=== PATIENT | male | born 1970 | race African-American/Black ===

== ENCOUNTER → 2017-01-21 00:08 | Emergency (ER) | payer OTHER ==
[~2017-01-21 00:08] MED LIST: Al Hydrox/Mg Hydrox/Simet LIQ* 30 ML UDC PO ONE; Lidocaine 2% VISCOUS* 15 ML UDC PO ONE
[2017-01-21 00:17] VITALS: BP 208/138
[2017-01-21 02:19] LABS: Hematocrit 47 % (42-52); Hemoglobin 16.3 g/dl (14.0-18.0); Mean Corpuscular HGB Conc 35 g/dl (31-36); Mean Corpuscular Hemoglobin 30 pg (27-31); Mean Corpuscular Volume 87 fL (80-94); Mean Platelet Volume 8 um3 (7.4-10.4); Red Blood Count 5.39 10^6/ul (4.0-5.4); Red Cell Distribution Width 13 % (10.5-15); White Blood Count 4.4 10^3/ul (3.5-10.8)
[2017-01-21 02:33] LABS: BUN/Creatinine Ratio 9.7 (8-20); Blood Urea Nitrogen 12 mg/dL (6-24); CO2 Carbon Dioxide 26 mmol/L (22-32); Chloride 101 mmol/L (101-111); EGFR Non-African American 62.2 (>60); Glucose 119 mg/dL (70-100); Sodium 137 mmol/L (133-145)
[2017-01-21 02:34] LABS: ALT 31 U/L (7-52); Acetaminophen < 15 mcg/mL; Albumin 3.7 g/dL (3.2-5.2); Alkaline Phosphatase 63 U/L (34-104); Globulin 4.5 g/dL (2-4); Salicylate < 2.50 mg/dL (<30); Total Protein 8.2 g/dL (6.4-8.9)
[2017-01-21 02:37] LABS: Alcohol 415 mg/dL (<10); Troponin I 0.04 ng/mL (<0.04)
[2017-01-21 02:48] LABS: TSH (Thyroid Stimulating Horm) 2.72 mcIU/mL (0.34-5.60)
[2017-01-21 02:49] LABS: AST 51 U/L (13-39); Anion Gap 10 mmol/L (2-11)
--- NOTE | 2017-01-21 06:54 | ED ---
Alf Sanchez Nikita, scribed for Jim Gallegos on 01/21/17 at 0049 . Substance Abuse/Use - HPI Summary HPI Summary: This patient is a 46 year old M BIB police to ED with a chief complaint of ETOH abuse since a few days ago. Pt states his last drink was at 2200 yesterday. Pt has been dealing with PD multiple times today. The patient rates the pain 0/10 in severity. Symptoms aggravated by nothing. Symptoms alleviated by nothing. Patient denies SI, depression, and CP. - History Of Current Complaint Chief Complaint: EDSubstanceAbuse Stated Complaint: 2208 Time Seen by Provider: 01/21/17 00:31 Hx Obtained From: Patient Onset/Duration of Drug/ETOH Abuse: Days Ingestion History: Type/Name Of Drug - alcohol Overdose Characteristics: Oral Timing Of Abuse: Daily Character: Lethargic Aggravating Factor(s): Nothing Alleviating Factor(s): Nothing Associated Signs And Symptoms: Other: - Patient denies SI, depression, and CP. - Allergies/Home Medications Allergies/Adverse Reactions: Allergies Allergy/AdvReac Type Severity Reaction Status Date / Time No Known Allergies Allergy Verified 01/21/17 00:13 PMH/Surg Hx/FS Hx/Imm Hx Endocrine/Hematology History: Reports: Other Endocrine/Hematological Disorders - hypoglycemia Cardiovascular History: Reports: Hx Hypertension Infectious Disease History: No Infectious Disease History: Denies: Traveled Outside the [place] in Last 30 Days - Family History Known Family History: Negative: Cardiac Disease - Social History Alcohol Use: Daily Substance Use Type: Reports: None Smoking Status (MU): Never Smoked Tobacco Review of Systems Positive: Other - alcohol abuse Negative: Chest Pain Positive: Other - denies SI. Negative: Depressed All Other Systems Reviewed And Are Negative: Yes Physical Exam Triage Information Reviewed: Yes Vital Signs On Initial Exam: Initial Vitals Temp Pulse Resp BP Pulse Ox 97.5 F 114 16 208/138 96 01/21/17 00:13 01/21/17 00:13 01/21/17 00:13 01/21/17 00:13 01/21/17 00:13 Vital Signs Reviewed: Yes Appearance: Positive: Well-Appearing, No Pain Distress Skin: Positive: Warm, Skin Color Reflects Adequate Perfusion, Dry Head/Face: Positive: Other - abrasion over the nose Eyes: Positive: EOMI, KALPESH ENT: Positive: Normal ENT inspection Neck: Positive: Supple, Nontender Respiratory/Lung Sounds: Positive: Clear to Auscultation, Breath Sounds Present Cardiovascular: Positive: RRR, Pulses are Symmetrical in both Upper and Lower Extremities Abdomen Description: Positive: Nontender, Soft Bowel Sounds: Positive: Present Musculoskeletal: Positive: Normal, Strength/ROM Intact Neurological: Positive: Other - alert, lethargic, drunk - [place] Coma Scale Coma Scale Total: 15 Diagnostics - Vital Signs Vital Signs Temp Pulse Resp BP Pulse Ox 01/21/17 00:13 97.5 F 114 16 208/138 96 - Laboratory Lab Results: Lab Results 01/21/17 01/21/17 Range/Units 02:07 02:07 WBC 4.4 (3.5-10.8) 10^3/ul RBC 5.39 (4.0-5.4) 10^6/ul Hgb 16.3 (14.0-18.0) g/dl Hct 47 (42-52) % MCV 87 (80-94) fL MCH 30 (27-31) pg MCHC 35 (31-36) g/dl RDW 13 (10.5-15) % Plt Count 174 (150-450) 10^3/ul MPV 8 (7.4-10.4) um3 Neut % (Auto) 62.6 (38-83) % Lymph % (Auto) 30.1 (25-47) % [place] % (Auto) 6.4 (1-9) % Eos % (Auto) 0.3 (0-6) % Baso % (Auto) 0.6 (0-2) % Absolute Neuts (auto) 2.7 (1.5-7.7) 10^3/ul Absolute Lymphs (auto) 1.3 (1.0-4.8) 10^3/ul Absolute Monos (auto) 0.3 (0-0.8) 10^3/ul Absolute Eos (auto) 0 (0-0.6) 10^3/ul Absolute Basos (auto) 0 (0-0.2) 10^3/ul Absolute Nucleated RBC 0.02 10^3/ul Nucleated RBC % 0.4 Sodium 137 (133-145) mmol/L Potassium 4.0 (3.5-5.0) mmol/L Chloride 101 (101-111) mmol/L Carbon Dioxide 26 (22-32) mmol/L Anion Gap 10 (2-11) mmol/L BUN 12 (6-24) mg/dL Creatinine 1.24 H (0.67-1.17) mg/dL Est GFR ( Amer) 80.0 (>60) Est GFR (Non-Af Amer) 62.2 (>60) BUN/Creatinine Ratio 9.7 (8-20) Glucose 119 H (70-100) mg/dL Calcium 9.0 (8.6-10.3) mg/dL Total Bilirubin 0.30 (0.2-1.0) mg/dL AST 51 H (13-39) U/L ALT 31 (7-52) U/L Alkaline Phosphatase 63 (34-104) U/L Troponin I 0.04 H* (<0.04) ng/mL Total Protein 8.2 (6.4-8.9) g/dL Albumin 3.7 (3.2-5.2) g/dL Globulin 4.5 H (2-4) g/dL Albumin/Globulin Ratio 0.8 L (1-3) TSH 2.72 (0.34-5.60) mcIU/mL Salicylates < 2.50 (<30) mg/dL Acetaminophen < 15 mcg/mL Serum Alcohol 415 H* (<10) mg/dL Result Diagrams: 01/21/17 02:07 01/21/17 02:07 Lab Statement: Any lab studies that have been ordered have been reviewed, and results considered in the medical decision making process. - EKG 0554 Cardiac Rate: NL EKG Rhythm: Sinus Rhythm - 88 bpm EKG Interpretation: no acute changes Course/Dx - Course Assessment/Plan: This patient is a 46 year old M BIB police to ED with a chief complaint of ETOH abuse since a few days ago. Patient denies SI, depression, and CP. Bloodwork/UA obtained. EKG reveals NSR at 88 bpm and no acute changes. Pt will be signed out to Dr. Llanos. - Diagnoses Differential Diagnosis/HQI/PQRI: Positive: Alcohol Abuse, Anxiety, Other - alcohol intoxication Provider Diagnoses: Alcohol intoxication, Troponin level elevated Discharge - Discharge Plan Condition: Stable Disposition: OTHER Discharge Disposition Comment: Pt will be signed out to Dr. Llanos, pending disposition. The documentation as recorded by the scribe, Alf,Sourav accurately reflects the service I personally performed and the decisions made by , Jim Gallegos.
--- NOTE | 2017-01-21 07:57 | ED ---
Angelo Sanchez Thomas, scribed for Yovanny Llanos MD on 01/21/17 at 0731 . Progress - Progress Note Progress Note: The patient is a sign out from Dr. Gallegos at shift change with ETOH intoxication , pending disposition. The patient has decided to leave against medical advice. I extensively discussed with the patient the benefits and risk of leaving AMA. I also discussed the alternatives to leaving AMA, however, the patient still insist to leave the hospital AMA.. The primary nurse and the charge nurse also strongly recommended that the patient should not leave AMA. Patient understands the risk of leaving AMA, which includes but is not restricted to . Patient is Alert and oriented times three and patient verbalizes understanding. Patient has full capacity and is cognitively intact. Patient signed the AMA form. Patient was also advised to return to ED if he changes his mind or if the symptoms worsen or other symptoms appear. Patient understands and agrees. Course/Dx - Diagnoses Provider Diagnoses: Left against medical advice The documentation as recorded by the Angelo cole Thomas accurately reflects the service I personally performed and the decisions made by me, Yovanny Llanos MD.
== END | disposition left against medical advice (07) ==
LOC: ED 00:08
DX: F10.129 Alcohol abuse with intoxication, unspecified (principal)
CPT/HCPCS: 36415; 80053; 80320; 80329; 84443; 84484; 85025; 93005; 99283; A9270-GY; G0480

== ENCOUNTER 2017-01-21 19:37 | Emergency (ER) | payer OTHER ==
[2017-01-21 20:26] LABS: Hematocrit 42 % (42-52); Hemoglobin 14.9 g/dl (14.0-18.0); Mean Corpuscular HGB Conc 35 g/dl (31-36); Mean Corpuscular Hemoglobin 30 pg (27-31); Mean Corpuscular Volume 86 fL (80-94); Mean Platelet Volume 8 um3 (7.4-10.4); Red Blood Count 4.96 10^6/ul (4.0-5.4); Red Cell Distribution Width 13 % (10.5-15); White Blood Count 3.6 10^3/ul (3.5-10.8)
--- NOTE | 2017-01-21 20:34 | ED ---
Psychiatric Complaint - HPI Summary HPI Summary: Patient presents to the ED with CC of feeling depressed after drinking alcohol recently. He states he has been drinking more lately and most recently 3 nights ago consistently until now. He states he is intoxicated right now. Intoxicated last night as well as he was seen here and eventually discharged. He returns today with intoxication and wants to seek help. He denies SI/HI, however he would like to talk to someone about "hurting those around me." Denies physical pain. - History Of Current Complaint Chief Complaint: EDMentalHealth Time Seen by Provider: 01/21/17 19:39 Hx Obtained From: Patient Onset/Duration: Sudden Onset Timing: Constant Severity Initially: Moderate Severity Currently: Moderate Character: Depressed Aggravating Factor(s): Alcohol Use Alleviating Factor(s): Nothing Associated Signs And Symptoms: Positive: Negative Ingestion History: Amount Ingested - several liquor/beer drinks - Risk Factor(s) Completed Suicide Risk Factors: Male - Allergies/Home Medications Allergies/Adverse Reactions: Allergies Allergy/AdvReac Type Severity Reaction Status Date / Time No Known Allergies Allergy Verified 01/21/17 00:13 PMH/Surg Hx/FS Hx/Imm Hx Previously Healthy: Yes Endocrine/Hematology History: Denies: Hx Diabetes, Hx Thyroid Disease Cardiovascular History: Denies: Hx Hypertension, Hx Pacemaker/ICD Respiratory History: Reports: Hx Asthma Denies: Hx Chronic Obstructive Pulmonary Disease (COPD) GI History: Denies: Hx Ulcer Sensory History: Denies: Hx Contacts or Glasses, Hx Hearing Aid Opthamlomology History: Denies: Hx Contacts or Glasses Psychiatric History: Reports: Hx Panic Disorder, Hx of Violent Episodes Against Others - Immunization History Hx Pertussis Vaccination: No Immunizations Up to Date: Unable to Obtain/Confirm Infectious Disease History: No Infectious Disease History: Denies: Hx Hepatitis, Hx Human Immunodeficiency Virus (HIV), Traveled Outside the [place] in Last 30 Days - Family History Known Family History: Positive: Unknown - Usp and "has not seen parents in a long time" Family History: The patient does not know his family Hx. - Social History Occupation: Employed Full-time Lives: With Family Alcohol Use: Daily Alcohol Amount: beer, 5-6x 24oz beers daily Hx Substance Use: No Substance Use Type: Reports: None Substance Use Comment - Amount & Last Used: 2 weeks ago Hx Tobacco Use: No Smoking Status (MU): Never Smoked Tobacco Review of Systems Constitutional: Negative Negative: Fever, Fatigue Eyes: Negative Cardiovascular: Negative Respiratory: Negative Genitourinary: Negative Positive: no symptoms reported, see HPI Musculoskeletal: Negative Neurological: Negative Positive: Depressed All Other Systems Reviewed And Are Negative: Yes Physical Exam Triage Information Reviewed: Yes Vital Signs On Initial Exam: Initial Vitals Temp Pulse Resp BP Pulse Ox 98.8 F 100 14 160/99 95 01/21/17 20:21 01/21/17 20:21 01/21/17 20:21 01/21/17 20:21 01/21/17 20:21 Vital Signs Reviewed: Yes Appearance: Positive: Well-Nourished, Obese Skin: Positive: Warm, Skin Color Reflects Adequate Perfusion Head/Face: Positive: Normal Head/Face Inspection Eyes: Positive: EOMI, KALPESH, Conjunctiva Clear Neck: Positive: Supple, Nontender, No Lymphadenopathy Respiratory/Lung Sounds: Positive: Clear to Auscultation, Breath Sounds Present Cardiovascular: Positive: RRR, Pulses are Symmetrical in both Upper and Lower Extremities Musculoskeletal: Positive: Strength/ROM Intact Neurological: Positive: Speech Normal Psychiatric: Positive: Normal, Affect/Mood Appropriate AVPU Assessment: Alert Diagnostics - Vital Signs Vital Signs Temp Pulse Resp BP Pulse Ox 01/21/17 20:21 98.8 F 100 14 160/99 95 - Laboratory Lab Results: Lab Results 01/21/17 Range/Units 20:15 WBC 3.6 (3.5-10.8) 10^3/ul RBC 4.96 (4.0-5.4) 10^6/ul Hgb 14.9 (14.0-18.0) g/dl Hct 42 (42-52) % MCV 86 (80-94) fL MCH 30 (27-31) pg MCHC 35 (31-36) g/dl RDW 13 (10.5-15) % Plt Count 138 L (150-450) 10^3/ul MPV 8 (7.4-10.4) um3 Neut % (Auto) 58.8 (38-83) % Lymph % (Auto) 33.8 (25-47) % [place] % (Auto) 6.8 (1-9) % Eos % (Auto) 0 (0-6) % Baso % (Auto) 0.6 (0-2) % Absolute Neuts (auto) 2.1 (1.5-7.7) 10^3/ul Absolute Lymphs (auto) 1.2 (1.0-4.8) 10^3/ul Absolute Monos (auto) 0.2 (0-0.8) 10^3/ul Absolute Eos (auto) 0 (0-0.6) 10^3/ul Absolute Basos (auto) 0 (0-0.2) 10^3/ul Absolute Nucleated RBC 0.01 10^3/ul Nucleated RBC % 0.4 Result Diagrams: 01/21/17 20:15 01/21/17 20:15 Lab Statement: Any lab studies that have been ordered have been reviewed, and results considered in the medical decision making process. Course/Dx - Course Course Of Treatment: Patient has serum alcohol at 399. Sober 15 hours from now. He will await sobriety. He is agitated and would like to talk to someone immediately, however d/t alochol level, discussed he will need to wait. He is given 2mg ativan PO. - Differential Dx/Clinical Impression Provider Diagnosis: Alcohol intoxication Discharge - Discharge Plan Condition: Stable Disposition: OTHER Discharge Disposition Comment: signed out to dr. buchanan at 11pm Referrals: Keely Kwan MD [Primary Care Provider] -
[2017-01-21 20:40] LABS: ALT 34 U/L (7-52); Albumin 3.6 g/dL (3.2-5.2); Alkaline Phosphatase 52 U/L (34-104); BUN/Creatinine Ratio 9.9 (8-20); Blood Urea Nitrogen 11 mg/dL (6-24); CO2 Carbon Dioxide 25 mmol/L (22-32); Calcium 8.3 mg/dL (8.6-10.3); Chloride 101 mmol/L (101-111); EGFR African American 90.9 (>60); EGFR Non-African American 70.7 (>60); Glucose 106 mg/dL (70-100); Sodium 136 mmol/L (133-145); Total Protein 7.6 g/dL (6.4-8.9)
[2017-01-21 21:02] LABS: Anion Gap 10 mmol/L (2-11)
[2017-01-21 21:03] LABS: Acetaminophen < 15 mcg/mL; Alcohol 399 mg/dL (<10); Salicylate < 2.50 mg/dL (<30)
[2017-01-21 21:25] LABS: Urine Bacteria 1+ (Absent); Urine Bilirubin Negative (Negative); Urine Glucose Negative (Negative); Urine Nitrite Negative (Negative)
[2017-01-21 22:06] LABS: Benzodiazepine Urine Screen None Detected (None Detect)
[2017-01-21] MEDS ORDERED: LORazepam TAB(*) 1 MG PO ONE (22:16)
[2017-01-22] MEDS ORDERED: Thiamine TAB* 100 MG TAB PO ONE (07:40)
[2017-01-22] MEDS ORDERED: Folic Acid TAB* 1 MG PO ONE (07:40)
[2017-01-22] MEDS ORDERED: LORazepam TAB(*) 1 MG PO ONE (07:40)
[2017-01-22] MEDS ORDERED: Labetalol IV* 5 MG/ML 20 ML VIAL IV PUSH ONE (10:01)
[2017-01-22 10:38] VITALS: BP 170/100
== END 2017-01-22 10:38 | disposition home or self-care (01) ==
LOC: MERGE 19:37 → ED 19:37
DX: F10.129 Alcohol abuse with intoxication, unspecified (principal); F32.9 Major depressive disorder, single episode, unspecified
CPT/HCPCS: 36415; 80053; 80307; 80320; 80329; 81003; 81015; 84443; 85025; 87086; 96374; 99284; A9270-GY; G0480

== ENCOUNTER 2017-02-01 17:09 | Emergency (ER) | payer OTHER ==
[2017-02-01] MEDS ORDERED: Thiamine IV* 100 MG/ML 2 ML VIAL IM ONE (20:03)
[2017-02-01 20:25] LABS: ABS Basophils 0 10^3/ul (0-0.2); ABS Eosinophils 0 10^3/ul (0-0.6); ABS Monocytes 0.4 10^3/ul (0-0.8); ABS Neutrophils 1.6 10^3/ul (1.5-7.7); ABS Nucleated RBC 0 10^3/ul; Eosinophil % 1.1 % (0-6); Hematocrit 40 % (42-52); Hemoglobin 13.8 g/dl (14.0-18.0); Lymphocyte % 34.2 % (25-47); Mean Corpuscular HGB Conc 35 g/dl (31-36); Mean Corpuscular Hemoglobin 30 pg (27-31); Mean Corpuscular Volume 87 fL (80-94); Mean Platelet Volume 8 um3 (7.4-10.4); Nucleated Red Blood Cells % 0.1; Platelet Count 148 10^3/ul (150-450); Red Blood Count 4.55 10^6/ul (4.0-5.4); Red Cell Distribution Width 13 % (10.5-15); White Blood Count 3.1 10^3/ul (3.5-10.8)
[2017-02-02 00:35] VITALS: BP 102/89
[2017-02-02 04:19] LABS: Urine Appearance Turbid; Urine Blood 2+ (Negative); Urine Color Amber; Urine Ketones Negative (Negative); Urine Protein 3+(>=500 mg/dL) (Negative); Urine Specific Gravity 1.019 (1.010-1.030); Urine Urobilinogen Negative (Negative)
--- NOTE | 2017-02-28 21:49 | ED ---
Sammy Sanchez Stephanie, scribed for Fermin Laboy MD on 02/01/17 at 2021 . Substance Abuse/Use - HPI Summary HPI Summary: Pt is a 46 y/o M BIB police positive for ETOH at 18:02. He reports that he was intoxicated when troopers removed him from his bed and brought him to the ED. He reports that he is unaware of why he is a patient in the ED. Symptoms include SOB. Pt denies falling. He reports consuming 3 to 4 25 oz of ETOH daily. - History Of Current Complaint Chief Complaint: EDGeneral Stated Complaint: 2208 Hx Obtained From: Patient Onset/Duration of Drug/ETOH Abuse: Hours Ingestion History: Type/Name Of Drug - ETOH Timing Of Abuse: Daily Aggravating Factor(s): Nothing Alleviating Factor(s): Nothing Associated Signs And Symptoms: Confused, Other: - SOB - Allergies/Home Medications Allergies/Adverse Reactions: Allergies Allergy/AdvReac Type Severity Reaction Status Date / Time No Known Allergies Allergy Verified 01/21/17 00:13 PMH/Surg Hx/FS Hx/Imm Hx Previously Healthy: No Endocrine/Hematology History: Reports: Other Endocrine/Hematological Disorders - hypoglycemia Denies: Hx Diabetes, Hx Thyroid Disease Cardiovascular History: Reports: Hx Congestive Heart Failure Denies: Hx Hypertension, Hx Pacemaker/ICD Respiratory History: Reports: Hx Asthma Denies: Hx Chronic Obstructive Pulmonary Disease (COPD) GI History: Denies: Hx Ulcer Sensory History: Denies: Hx Contacts or Glasses, Hx Hearing Aid Opthamlomology History: Denies: Hx Contacts or Glasses, Hx Legally Blind EENT History: Denies: Hx Deafness Psychiatric History: Reports: Hx Panic Disorder, Hx of Violent Episodes Against Others Infectious Disease History: No Infectious Disease History: Denies: Hx Hepatitis, Hx Human Immunodeficiency Virus (HIV), Traveled Outside the [place] in Last 30 Days - Family History Known Family History: Positive: Unknown - Mcfp and "has not seen parents in a long time" Negative: Cardiac Disease Family History: The patient does not know his family Hx. - Social History Alcohol Use: Daily Alcohol Amount: beer, 5-6x 24oz beers daily Substance Use Type: Reports: None Substance Use Comment - Amount & Last Used: 2 weeks ago Smoking Status (MU): Never Smoked Tobacco Review of Systems Negative: Fever Positive: Shortness Of Breath All Other Systems Reviewed And Are Negative: Yes Physical Exam - Summary Physical Exam Summary: Appearance: Well-appearing, Well-nourished Skin: Warm, Dry, No rash, Has multiple scars on face Eyes: Normal, PERRL, EOMI, sclera anicteric ENT: Normal Neck: Supple, nontender Respiratory: Clear to auscultation Cardiovascular: S1, S2, no murmur, no rub, no gallop Abdomen: Soft, nontender, no organomegaly Bowel sounds: Present Musculoskeletal: Normal, Strength/ROM Intact, no edema, pulses symmetrical Neurological: Normal, A&Ox3, cranial nerves II-XII WNL, follows commands, gait not tested, sensation intact to pin and light touch Psychiatric: affect normal, behavior appropriate, dressed appropriately, judgment intact Extremity: Has abrasions on soles of feet Triage Information Reviewed: Yes Vital Signs On Initial Exam: Initial Vitals Temp Pulse Resp BP Pulse Ox 97.1 F 94 18 188/113 97 02/01/17 18:02 02/01/17 18:02 02/01/17 18:02 02/01/17 18:02 02/01/17 18:02 Vital Signs Reviewed: Yes Diagnostics - Vital Signs Vital Signs Temp Pulse Resp BP Pulse Ox 02/01/17 18:02 97.1 F 94 18 188/113 97 - Laboratory Result Diagrams: 02/01/17 20:10 02/01/17 22:15 Lab Statement: Any lab studies that have been ordered have been reviewed, and results considered in the medical decision making process. Course/Dx - Course Course Of Treatment: Pt is a 46 y/o M BIB police positive for ETOH at 18:02. He reports that he was intoxicated when troopers removed him from his bed and brought him to the ED. He reports consuming 3 to 4 25 oz of ETOH daily. Electrolytes checkedand are in normal limits. Pt is alert enough to return home by taxi. Physician has reviewed medications and allergies. - Diagnoses Provider Diagnoses: Alcohol intoxication, Chronic alcohol abuse Discharge - Discharge Plan Condition: Fair Disposition: HOME Patient Education Materials: Abuse of Alcohol (ED) Referrals: Keely Kwan MD [Primary Care Provider] - The documentation as recorded by the Sammy cole Stephanie accurately reflects the service I personally performed and the decisions made by me, Fermin Laboy MD.
== END 2017-02-02 00:32 | disposition home or self-care (01) ==
LOC: ED 17:09
DX: F10.129 Alcohol abuse with intoxication, unspecified (principal); F10.20 Alcohol dependence, uncomplicated; R06.02 Shortness of breath
CPT/HCPCS: 36415; 80053; 80307; 80320; 81003; 81015; 83735; 85025; 96372; 99282; G0480; J3411

== ENCOUNTER 2017-04-04 11:48 | Emergency (ER) | payer OTHER ==
[2017-04-04] MEDS ORDERED: LORazepam TAB(*) 1 MG PO ONE (13:56)
[2017-04-04 14:00] LABS: ABS Basophils 0 10^3/ul (0-0.2); ABS Eosinophils 0 10^3/ul (0-0.6); ABS Lymphocytes 1.2 10^3/ul (1.0-4.8); ABS Monocytes 0.2 10^3/ul (0-0.8); ABS Neutrophils 2.4 10^3/ul (1.5-7.7); ABS Nucleated RBC 0 10^3/ul; Eosinophil % 0 % (0-6); Hematocrit 43 % (42-52); Hemoglobin 15.1 g/dl (14.0-18.0); Lymphocyte % 31.5 % (25-47); Mean Corpuscular HGB Conc 35 g/dl (31-36); Mean Corpuscular Hemoglobin 31 pg (27-31); Mean Corpuscular Volume 87 fL (80-94); Mean Platelet Volume 8 um3 (7.4-10.4); Nucleated Red Blood Cells % 0.3; Platelet Count 112 10^3/ul (150-450); Red Cell Distribution Width 14 % (10.5-15); White Blood Count 3.9 10^3/ul (3.5-10.8)
[2017-04-04] MEDS ORDERED: LORazepam INJ* 2 MG/ML 1 ML VIAL IM ONE (14:03)
[2017-04-04] MEDS ORDERED: LORazepam INJ* 2 MG/ML 1 ML VIAL ONE (14:05)
[2017-04-04 14:15] LABS: EGFR Non-African American 77.6 (>60)
--- NOTE | 2017-04-04 15:57 | ED ---
Psychiatric Complaint - HPI Summary HPI Summary: Patient is a 47-year-old male who presents to the ED with alcohol intoxication. He was recently seen several times for similar. States he is unsure how much he drank, but has been drinking around the clock recently. Denies any homicidal or suicidal ideations. 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 When asked how much he drank, he notes to the EMS that he "drank it all". Girlfriend of the patient arrives shortly after stating that he has been very violent recently with suicidal ideations as well. He complains of SI daily and has plans of jumping off the bridge, although she is unsure which bridge he is talking about and states he hasn't done it yet, since he is always too drunk to get to the bridge. He sustained massive head injuries approximately a year ago , and since then has been drinking heavily and having suicidal thoughts. Denies any other self-harm. Denies drug use. - History Of Current Complaint Chief Complaint: EDSubstanceAbuse Time Seen by Provider: 04/04/17 11:52 Hx Obtained From: Patient Onset/Duration: Gradual Onset Timing: Constant Severity Initially: Severe Severity Currently: Severe Character: Depressed, Angry Aggravating Factor(s): Nothing Alleviating Factor(s): Nothing Associated Signs And Symptoms: Positive: Hostile Has Suicidal: Reports: Thoughts Has Homicidal: Reports: Thoughts, Has Prior Attempt(s) Ingestion History: Type/Name Of Drug - Alcohol, Amount Ingested - Unknown - Risk Factor(s) Completed Suicide Risk Factors: Male - Allergies/Home Medications Allergies/Adverse Reactions: Allergies Allergy/AdvReac Type Severity Reaction Status Date / Time No Known Allergies Allergy Verified 01/21/17 00:13 Home Medications: Home Medications Carvedilol TAB* [Coreg TAB*] 25 mg PO BID 04/04/17 [History Confirmed 04/04/17] Folic Acid TAB* [Folvite TAB*] 1 mg PO DAILY 04/04/17 [History Confirmed ] Torsemide TAB* [Demadex*] 20 mg PO DAILY 04/04/17 [History Confirmed 04/04/17] PMH/Surg Hx/FS Hx/Imm Hx Previously Healthy: Yes Endocrine/Hematology History: Reports: Other Endocrine/Hematological Disorders - hypoglycemia Denies: Hx Diabetes, Hx Thyroid Disease Cardiovascular History: Reports: Hx Congestive Heart Failure Denies: Hx Hypertension, Hx Pacemaker/ICD Respiratory History: Reports: Hx Asthma Denies: Hx Chronic Obstructive Pulmonary Disease (COPD) GI History: Denies: Hx Ulcer Sensory History: Denies: Hx Contacts or Glasses, Hx Legally Blind, Hx Deafness, Hx Hearing Aid Opthamlomology History: Denies: Hx Contacts or Glasses, Hx Legally Blind Psychiatric History: Reports: Hx Panic Disorder, Hx of Violent Episodes Against Others Denies: Hx Eating Disorder Infectious Disease History: No Infectious Disease History: Denies: Hx Hepatitis, Hx Human Immunodeficiency Virus (HIV), Traveled Outside the [place] in Last 30 Days - Family History Known Family History: Positive: Unknown - Chcf and "has not seen parents in a long time" Negative: Cardiac Disease Family History: The patient does not know his family Hx. - Social History Occupation: Unemployed Lives: Alone - rescue [place] Alcohol Use: Daily Alcohol Amount: 2, 12 packs daily Hx Substance Use: No Substance Use Type: Reports: None Substance Use Comment - Amount & Last Used: 2 weeks ago Hx Tobacco Use: No Smoking Status (MU): Never Smoked Tobacco Review of Systems Constitutional: Negative Negative: Fever, Chills, Fatigue, Skin Diaphoresis Eyes: Negative Cardiovascular: Negative Respiratory: Negative Positive: no symptoms reported, see HPI Musculoskeletal: Negative Skin: Negative Neurological: Negative Positive: Depressed, Other - angry, frustrated All Other Systems Reviewed And Are Negative: Yes Physical Exam Triage Information Reviewed: Yes Vital Signs On Initial Exam: Initial Vitals Temp Pulse Resp BP Pulse Ox 98.7 F 90 16 146/97 94 04/04/17 11:49 04/04/17 11:49 04/04/17 11:49 04/04/17 11:49 04/04/17 11:49 Vital Signs Reviewed: Yes Appearance: Positive: Ill-Appearing Skin: Positive: Skin Color Reflects Adequate Perfusion Head/Face: Positive: Normal Head/Face Inspection Eyes: Positive: EOMI, KALPESH, Conjunctiva Clear Neck: Positive: Supple, No Lymphadenopathy Respiratory/Lung Sounds: Positive: Clear to Auscultation, Breath Sounds Present Cardiovascular: Positive: RRR, Pulses are Symmetrical in both Upper and Lower Extremities Musculoskeletal: Positive: Strength/ROM Intact Neurological: Positive: Slurred Speech Psychiatric: Positive: Anxious, Depressed, Patient Uncooperative for Exam AVPU Assessment: Alert Diagnostics - Vital Signs Vital Signs Temp Pulse Resp BP Pulse Ox 04/04/17 14:15 20 04/04/17 11:49 98.7 F 90 16 146/97 94 - Laboratory Lab Results: Lab Results 04/04/17 04/04/17 04/04/17 Range/Units 13:41 13:41 13:41 WBC 3.9 (3.5-10.8) 10^3/ul RBC 4.90 (4.0-5.4) 10^6/ul Hgb 15.1 (14.0-18.0) g/dl Hct 43 (42-52) % MCV 87 (80-94) fL MCH 31 (27-31) pg MCHC 35 (31-36) g/dl RDW 14 (10.5-15) % Plt Count 112 L (150-450) 10^3/ul MPV 8 (7.4-10.4) um3 Neut % (Auto) 61.7 (38-83) % Lymph % (Auto) 31.5 (25-47) % [place] % (Auto) 6.1 (1-9) % Eos % (Auto) 0 (0-6) % Baso % (Auto) 0.7 (0-2) % Absolute Neuts (auto) 2.4 (1.5-7.7) 10^3/ul Absolute Lymphs (auto) 1.2 (1.0-4.8) 10^3/ul Absolute Monos (auto) 0.2 (0-0.8) 10^3/ul Absolute Eos (auto) 0 (0-0.6) 10^3/ul Absolute Basos (auto) 0 (0-0.2) 10^3/ul Absolute Nucleated RBC 0 10^3/ul Nucleated RBC % 0.3 Sodium 138 (133-145) mmol/L Potassium 4.0 (3.5-5.0) mmol/L Chloride 103 (101-111) mmol/L Carbon Dioxide 26 (22-32) mmol/L Anion Gap 9 (2-11) mmol/L BUN 10 (6-24) mg/dL Creatinine 1.02 (0.67-1.17) mg/dL Est GFR ( Amer) 99.8 (>60) Est GFR (Non-Af Amer) 77.6 (>60) BUN/Creatinine Ratio 9.8 (8-20) Glucose 115 H (70-100) mg/dL Lactic Acid 1.6 (0.5-2.0) mmol/L Calcium 8.6 (8.6-10.3) mg/dL Total Bilirubin 0.40 (0.2-1.0) mg/dL AST 83 H (13-39) U/L ALT 45 (7-52) U/L Alkaline Phosphatase 60 (34-104) U/L Total Protein 7.4 (6.4-8.9) g/dL Albumin 3.4 (3.2-5.2) g/dL Globulin 4.0 (2-4) g/dL Albumin/Globulin Ratio 0.9 L (1-3) Serum Alcohol 510 H* (<10) mg/dL Result Diagrams: 04/04/17 13:41 04/04/17 13:41 Lab Statement: Any lab studies that have been ordered have been reviewed, and results considered in the medical decision making process. Course/Dx - Course Course Of Treatment: During the course of treatment, the patient is evaluated for substance use, alcohol and tox versus suicidal ideations. Girlfriend has been stating he has had SI daily for months. Also, has had uncontrolled hypertension which his kept him in the hospital for overnight stays. During the course of treatment, the patient became belligerent and vocal in the [place]. He was taken to a room and given 2 IM Ativan. He is sleeping comfortably. Vital signs are stable including high blood pressure. He will be clinically sober at 4 AM on April 05, 2017. At approximately 7:15 PM, the patient becomes aggravated and continues at attempts and leaving. Security called. He is given Haldol 5 mg and Ativan 2 mg. by mouth signed out to Dr. Potts awaiting U. Still waiting clinical sobriety. - Differential Dx/Clinical Impression Provider Diagnosis: Alcohol intoxication Discharge - Discharge Plan Condition: Stable Disposition: HOME Referrals: Keely Kwan MD [Primary Care Provider] - Additional Instructions: Per completion of a mental health evaluation, you are cleared for release and do not require inpatient psychiatric hospitalization at this time. Please go to nearest emergency room or call 911 if safety concerns arise or condition worsens. Follow up with [facility] as planned. Important Phone Numbers: [facility]~~ ph:[phone] Suicide Prevention and Crisis Services~~~~~~~~~~~~~~~~~~~~~~~ ph:[phone] National Suicide Prevention Lifeline~~~~~~~~~~~~~~~~~~~~~~~~~ ph:800-273- TALK (8255) [facility]~~~~~~~~~~~~~~~~~~~~~~~ ph:[phone] [facility] ([facility])~~~~~~~~~~~~~~~~~~ ph:[phone] Alcohol [facility] ([facility])~~~~~~~~~~~~~~~~~~~~~~~~~~ ph:[phone] Family and Children's Services~~~~~~~~~~~~~~~~~~~~~~~~~~~~~ ph:[phone] Alcoholics Anonymous~~~~~~~~~~~~~~~~~~~~~~~~~~~~~~~~~~ ph:[phone] [facility]~~~~~~~~~~~~~~~~~~~ ph:[phone] [place] [employer]~~~~~~~~~~~~~~~~~~~~~~~~~~~~~~~~~ ph:[phone]
[2017-04-04] MEDS ORDERED: Haloperidol INJ IV/IM* 5 MG/ML AMP IM ONE (19:28)
[2017-04-04] MEDS ORDERED: LORazepam INJ* 2 MG/ML 1 ML VIAL IV PUSH ONE (19:29)
[2017-04-05 06:01] VITALS: BP 166/97
--- NOTE | 2017-04-05 06:27 | ED ---
Meliton Sanchez Angela, scribed for Adelia Mann MD on 04/05/17 at 0621 . Progress - Progress Note Progress Note: This pt was signed out by ISA Olivares, pending disposition, awaiting alcohol metabolism and [facility]. Pt was evaluated by [facility] and his case was reviewed by Dr. Ricci. Dr. Ricci recommends the pt to be discharged with outpatient follow up at [facility] and [facility]. Pt will be discharged home, in stable condition, with a diagnosis of alcohol intoxication. Condition: Stable Disposition: Home Course/Dx - Diagnoses Provider Diagnoses: Alcohol intoxication The documentation as recorded by the Meliton cole Angela accurately reflects the service I personally performed and the decisions made by Mackenzie gerard Abdul, MD.
== END 2017-04-05 06:30 | disposition home or self-care (01) ==
LOC: ED 11:48
DX: F10.129 Alcohol abuse with intoxication, unspecified (principal); I50.9 Heart failure, unspecified; I10 Essential (primary) hypertension; R45.851 Suicidal ideations
CPT/HCPCS: 36415; 80053; 80307; 80320; 83605; 85025; 96372; 96374; 99285; G0480; J1630; J2060

== ENCOUNTER 2017-04-08 08:40 | Inpatient (IN) | payer OTHER ==
[2017-04-08] MEDS ORDERED: Thiamine IV* 100 MG, Folic Acid IV* 1 MG, Multiple Vitamin IV ADULT* 10 ML in NS 0.9% 1... IV ONE (08:51)
[2017-04-08 09:09] LABS: ABS Basophils 0 10^3/ul (0-0.2); ABS Eosinophils 0 10^3/ul (0-0.6); ABS Lymphocytes 0.8 10^3/ul (1.0-4.8); ABS Monocytes 0.4 10^3/ul (0-0.8); ABS Neutrophils 3.6 10^3/ul (1.5-7.7); ABS Nucleated RBC 0 10^3/ul; Eosinophil % 0.1 % (0-6); Hematocrit 42 % (42-52); Hemoglobin 14.6 g/dl (14.0-18.0); Lymphocyte % 17.1 % (25-47); Mean Corpuscular HGB Conc 35 g/dl (31-36); Mean Corpuscular Hemoglobin 31 pg (27-31); Mean Corpuscular Volume 88 fL (80-94); Mean Platelet Volume 8 um3 (7.4-10.4); Nucleated Red Blood Cells % 0.1; Platelet Count 106 10^3/ul (150-450); Red Cell Distribution Width 13 % (10.5-15); White Blood Count 4.9 10^3/ul (3.5-10.8)
[2017-04-08] MEDS ORDERED: LORazepam INJ* 2 MG/ML 1 ML VIAL IV PUSH ONE (09:12)
[2017-04-08 09:19] LABS: INR 0.91 (0.77-1.02)
[2017-04-08 09:28] LABS: EGFR Non-African American 63.1 (>60)
--- NOTE | 2017-04-08 09:40 | RAD ---
HISTORY: Seizure COMPARISONS: August 02, 2016 VIEWS: 1: frontal portable view of the chest at 9:10 AM FINDINGS: LINES AND TUBES: None. CARDIOMEDIASTINAL SILHOUETTE: The cardiomediastinal silhouette is normal for portable technique. PLEURA: The costophrenic angles are sharp. No pleural abnormalities are noted. LUNG PARENCHYMA: The lungs are clear. ABDOMEN: The upper abdomen is clear. There is no subphrenic gas. BONES AND SOFT TISSUES: Degenerative changes are noted along the spine. IMPRESSION: NO ACTIVE CARDIOPULMONARY DISEASE.
[2017-04-08] MEDS ORDERED: Magnesium Sulfate 2 GM IV* 2 GM/50 ML BAG IVPB ONE (11:39)
[2017-04-08] MEDS ORDERED: NS 0.9% 1000 ML* 1,000 ML IV SCH (11:45)
[2017-04-08] MEDS ORDERED: Ondansetron INJ* 2 MG/ML VIAL IV PRN (11:52)
[2017-04-08] MEDS ORDERED: hydrALAZINE IV* 20 MG/ML VIAL IV SLOW PU PRN ×2 (11:52→14:33)
[2017-04-08] MEDS ORDERED: amLODIPine TAB* 5 MG PO SCH (12:00)
[2017-04-08] MEDS: amLODIPine TAB* 5 MG PO SCH (13:21)
[2017-04-08] MEDS: LORazepam TAB(*) 1 MG PO SCH ×3 (13:21→19:51)
[2017-04-08] MEDS ORDERED: hydrALAZINE IV* 20 MG/ML VIAL IV SLOW PU ONE (14:33)
[2017-04-08] MEDS: Heparin VIAL(*) 5000 UNITS/ML VIAL (FIVE THOUSAND) SUBCUT SCH ×2 (14:34→22:06)
[2017-04-08 14:36] LABS: Urine Appearance Cloudy; Urine Blood 3+ (Negative); Urine Color Yellow; Urine Ketones 1+ (Negative); Urine Protein 3+(>=500 mg/dL) (Negative); Urine Specific Gravity 1.022 (1.010-1.030); Urine Urobilinogen Negative (Negative)
--- NOTE | 2017-04-08 18:57 | ED ---
Meliton Sanchez Angela, scribed for Yovanny Llanos MD on 04/08/17 at 0859 . Neurological HPI - HPI Summary HPI Summary: This pt is a 47 y/o male presenting to [facility] via EMS for a seizure. EMS reports the pt had a seizure in the bus today that lasted approximately 4 minutes. Pt does not remember his seizure. Pt states he does not take any medications for his seizures. He denies any discomfort currently. Pt does not remember if he drank alcohol last night. Pt was last seen in the ED 4 days ago for alcohol intoxication. - History of Current Complaint Stated Complaint: SEIZURE Time Seen by Provider: 04/08/17 08:48 Hx Obtained From: Patient Onset/Duration: Started hours ago, Resolved Timing: Constant Seizure Severity: Moderate Neurological Deficit Location: Generalized Syncope Context: Witnessed Seizure Character: Generalized Aggravating: Nothing Alleviating: Nothing Associated Signs and Symptoms: Positive: Diaphoresis - Additional Pertinent History Primary Care Physician: JAYY - Allergy/Home Medications Allergies/Adverse Reactions: Allergies Allergy/AdvReac Type Severity Reaction Status Date / Time No Known Allergies Allergy Verified 01/21/17 00:13 PMH/Surg Hx/FS Hx/Imm Hx Endocrine/Hematology History: Reports: Other Endocrine/Hematological Disorders - hypoglycemia Denies: Hx Diabetes, Hx Thyroid Disease Cardiovascular History: Reports: Hx Congestive Heart Failure Denies: Hx Hypertension, Hx Pacemaker/ICD Respiratory History: Reports: Hx Asthma Denies: Hx Chronic Obstructive Pulmonary Disease (COPD) GI History: Denies: Hx Ulcer Sensory History: Denies: Hx Contacts or Glasses, Hx Legally Blind, Hx Deafness, Hx Hearing Aid Opthamlomology History: Denies: Hx Contacts or Glasses, Hx Legally Blind Psychiatric History: Reports: Hx Panic Disorder, Hx of Violent Episodes Against Others Denies: Hx Eating Disorder Infectious Disease History: Denies: Hx Hepatitis, Hx Human Immunodeficiency Virus (HIV) - Family History Known Family History: Positive: Unknown - Halfway and "has not seen parents in a long time" Negative: Cardiac Disease Family History: The patient does not know his family Hx. - Social History Alcohol Use: Daily Alcohol Amount: 2, 12 packs daily Hx Substance Use: No Substance Use Type: Reports: None Substance Use Comment - Amount & Last Used: 2 weeks ago Hx Tobacco Use: No Smoking Status (MU): Never Smoked Tobacco Review of Systems Negative: Fever, Chills ENT: Negative Cardiovascular: Negative Respiratory: Negative Gastrointestinal: Negative Genitourinary: Negative Musculoskeletal: Negative Neurological: Other - seizure All Other Systems Reviewed And Are Negative: Yes Physical Exam - Summary Physical Exam Summary: VITAL SIGNS: Reviewed. GENERAL: Patient is a well-developed and nourished (MALE OR FEMALE) who is lying comfortable in the stretcher. Patient is not in any acute respiratory distress. HEAD AND FACE: No signs of trauma. No ecchymosis, hematomas or skull depressions. No sinus tenderness. EYES: PERRLA, EOMI x 2, No injected conjunctiva, no nystagmus. EARS: Hearing grossly intact. Ear canals and tympanic membranes are within normal limits. MOUTH: Oropharynx within normal limits. Small laceration on tongue. NECK: Supple, trachea is midline, no adenopathy, no JVD, no carotid bruit, no c- spine tenderness, neck with full ROM. CHEST: Symmetric, no tenderness at palpation LUNGS: Clear to auscultation bilaterally. No wheezing or crackles. CVS: Regular rate and rhythm, S1 and S2 present, no murmurs or gallops appreciated. ABDOMEN: Soft, non-tender. No signs of distention. No rebound no guarding, and no masses palpated. Bowel sounds are normal. EXTREMITIES: FROM in all major joints, no edema, no cyanosis or clubbing. NEURO: Alert but in a postictal state. No acute neurological deficits. Speech is normal and follows commands. SKIN: warm and diaphoretic. GCS: 15 Triage Information Reviewed: Yes Vital Signs On Initial Exam: Initial Vitals Temp Pulse Resp BP Pulse Ox 97.2 F 119 18 192/122 95 04/08/17 08:51 04/08/17 08:51 04/08/17 08:51 04/08/17 08:51 04/08/17 08:51 Vital Signs Reviewed: Yes Diagnostics - Vital Signs Vital Signs Temp Pulse Resp BP Pulse Ox 04/08/17 11:27 110 26 186/123 95 04/08/17 11:00 122 22 98 04/08/17 10:31 115 19 164/97 96 04/08/17 10:00 110 23 95 04/08/17 09:43 115 23 94 04/08/17 09:30 110 24 164/97 94 04/08/17 09:27 18 04/08/17 09:05 123 24 183/139 95 04/08/17 09:00 118 26 94 04/08/17 08:56 121 22 93 04/08/17 08:55 192/122 04/08/17 08:51 97.2 F 119 18 192/122 95 - Laboratory Lab Results: Lab Results 04/08/17 04/08/17 04/08/17 Range/Units 08:59 08:59 08:59 WBC 4.9 (3.5-10.8) 10^3/ul RBC 4.80 (4.0-5.4) 10^6/ul Hgb 14.6 (14.0-18.0) g/dl Hct 42 (42-52) % MCV 88 (80-94) fL MCH 31 (27-31) pg MCHC 35 (31-36) g/dl RDW 13 (10.5-15) % Plt Count 106 L (150-450) 10^3/ul MPV 8 (7.4-10.4) um3 Neut % (Auto) 73.9 (38-83) % Lymph % (Auto) 17.1 L (25-47) % [place] % (Auto) 7.9 (1-9) % Eos % (Auto) 0.1 (0-6) % Baso % (Auto) 1.0 (0-2) % Absolute Neuts (auto) 3.6 (1.5-7.7) 10^3/ul Absolute Lymphs (auto) 0.8 L (1.0-4.8) 10^3/ul Absolute Monos (auto) 0.4 (0-0.8) 10^3/ul Absolute Eos (auto) 0 (0-0.6) 10^3/ul Absolute Basos (auto) 0 (0-0.2) 10^3/ul Absolute Nucleated RBC 0 10^3/ul Nucleated RBC % 0.1 INR (Anticoag Therapy) 0.91 (0.77-1.02) Sodium 134 (133-145) mmol/L Potassium 3.7 (3.5-5.0) mmol/L Chloride 99 L (101-111) mmol/L Carbon Dioxide 15 L (22-32) mmol/L Anion Gap 20 H (2-11) mmol/L BUN 11 (6-24) mg/dL Creatinine 1.22 H (0.67-1.17) mg/dL Est GFR ( Amer) 81.2 (>60) Est GFR (Non-Af Amer) 63.1 (>60) BUN/Creatinine Ratio 9.0 (8-20) Glucose 195 H (70-100) mg/dL Lactic Acid (0.5-2.0) mmol/L Calcium 8.8 (8.6-10.3) mg/dL Magnesium 1.7 L (1.9-2.7) mg/dL Total Bilirubin 0.70 (0.2-1.0) mg/dL AST 104 H (13-39) U/L ALT 47 (7-52) U/L Alkaline Phosphatase 61 (34-104) U/L Total Creatine Kinase 2393 H (10-223) U/L Total Protein 7.4 (6.4-8.9) g/dL Albumin 3.4 (3.2-5.2) g/dL Globulin 4.0 (2-4) g/dL Albumin/Globulin Ratio 0.9 L (1-3) TSH 2.50 (0.34-5.60) mcIU/mL Serum Alcohol 20 H (<10) mg/dL Influenza A (Rapid) (Negative) Influenza B (Rapid) (Negative) 04/08/17 04/08/17 Range/Units 08:59 09:42 WBC (3.5-10.8) 10^3/ul RBC (4.0-5.4) 10^6/ul Hgb (14.0-18.0) g/dl Hct (42-52) % MCV (80-94) fL MCH (27-31) pg MCHC (31-36) g/dl RDW (10.5-15) % Plt Count (150-450) 10^3/ul MPV (7.4-10.4) um3 Neut % (Auto) (38-83) % Lymph % (Auto) (25-47) % [place] % (Auto) (1-9) % Eos % (Auto) (0-6) % Baso % (Auto) (0-2) % Absolute Neuts (auto) (1.5-7.7) 10^3/ul Absolute Lymphs (auto) (1.0-4.8) 10^3/ul Absolute Monos (auto) (0-0.8) 10^3/ul Absolute Eos (auto) (0-0.6) 10^3/ul Absolute Basos (auto) (0-0.2) 10^3/ul Absolute Nucleated RBC 10^3/ul Nucleated RBC % INR (Anticoag Therapy) (0.77-1.02) Sodium (133-145) mmol/L Potassium (3.5-5.0) mmol/L Chloride (101-111) mmol/L Carbon Dioxide (22-32) mmol/L Anion Gap (2-11) mmol/L BUN (6-24) mg/dL Creatinine (0.67-1.17) mg/dL Est GFR ( Amer) (>60) Est GFR (Non-Af Amer) (>60) BUN/Creatinine Ratio (8-20) Glucose (70-100) mg/dL Lactic Acid 9.4 H* (0.5-2.0) mmol/L Calcium (8.6-10.3) mg/dL Magnesium (1.9-2.7) mg/dL Total Bilirubin (0.2-1.0) mg/dL AST (13-39) U/L ALT (7-52) U/L Alkaline Phosphatase (34-104) U/L Total Creatine Kinase (10-223) U/L Total Protein (6.4-8.9) g/dL Albumin (3.2-5.2) g/dL Globulin (2-4) g/dL Albumin/Globulin Ratio (1-3) TSH (0.34-5.60) mcIU/mL Serum Alcohol (<10) mg/dL Influenza A (Rapid) Negative (Negative) Influenza B (Rapid) Negative (Negative) Result Diagrams: 04/08/17 08:59 04/08/17 08:59 Lab Statement: Any lab studies that have been ordered have been reviewed, and results considered in the medical decision making process. - Radiology Chest XR Xray Interpretation: No Acute Changes - IMPRESSION: No active cardiopulmonary disease. Dr. Llanos has reviewed this radiology report. Radiology Interpretation Completed By: Radiologist - EKG 08:52 Cardiac Rate: Tachycardia EKG Rhythm: Sinus Tachycardia - at 118 bpm EKG Interpretation: No ST elevation Course/Dx - Course Assessment/Plan: This pt is a 47 y/o male presenting to [facility] via EMS for a seizure. EMS reports the pt had a seizure in the bus today that lasted approximately 4 minutes. Pt does not remember his seizure. Pt states he does not take any medications for his seizures. He denies any discomfort. Pt does not remember if he drank alcohol last night. Pt was last seen in the ED 4 days ago for alcohol intoxication. Test results without any significant abnormalities except chloride of 99, carbon dioxide of 15, glucose 195, lactic acid 9.4, AST of 104, total creatinine of 2393, alcohol level of 20. Influenza A and B is negative. Chest XR shows no active cardiopulmonary disease. In the ED course the pt was given IV fluids and a banana bag since he is an alcoholic, and Ativan. Pt is in alcohol withdrawal; therefore I discussed the test results and findings with Dr. Lamas, who accepted the pt for admission. Pt is hemodynamically stable, alert and oriented x3. - Differential Dx Differential Diagnoses Neuro: Positive: Seizure Disorder, Vasovagal Reaction - Diagnoses Provider Diagnoses: Alcohol withdrawal, Seizures - Physician Notifications Discussed Care Of Patient With: Jan Lamas Time Discussed With Above Provider: 10:26 Instructed by Provider To: Other - I discussed pt care with Dr. Lamas, hospitalist, who has agreed to admit the pt. Discharge - Discharge Plan Condition: Stable Disposition: ADMITTED TO [facility] The documentation as recorded by the Meliton cole Angela accurately reflects the service I personally performed and the decisions made by me, Yovanny Llanos MD.
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
[2017-04-08] MEDS: Carvedilol TAB* 25 MG PO SCH (19:50)
[2017-04-09] MEDS: LORazepam TAB(*) 1 MG PO SCH ×3 (00:54→16:40)
[2017-04-09] MEDS: Heparin VIAL(*) 5000 UNITS/ML VIAL (FIVE THOUSAND) SUBCUT SCH ×3 (06:05→22:39)
[2017-04-09 06:38] LABS: EGFR Non-African American 80.3 (>60)
[2017-04-09 06:54] LABS: ABS Basophils 0 10^3/ul (0-0.2); ABS Eosinophils 0.1 10^3/ul (0-0.6); ABS Lymphocytes 0.8 10^3/ul (1.0-4.8); ABS Monocytes 0.5 10^3/ul (0-0.8); ABS Nucleated RBC 0 10^3/ul; Eosinophil % 1.3 % (0-6); Hematocrit 37 % (42-52); Lymphocyte % 17.8 % (25-47); Mean Corpuscular HGB Conc 35 g/dl (31-36); Mean Corpuscular Hemoglobin 31 pg (27-31); Mean Corpuscular Volume 87 fL (80-94); Mean Platelet Volume 8 um3 (7.4-10.4); Nucleated Red Blood Cells % 0; Platelet Count 85 10^3/ul (150-450); Red Blood Count 4.24 10^6/ul (4.0-5.4); Red Cell Distribution Width 13 % (10.5-15); White Blood Count 4.3 10^3/ul (3.5-10.8)
[2017-04-09] MEDS: Carvedilol TAB* 25 MG PO SCH ×2 (08:01→22:00)
[2017-04-09] MEDS: amLODIPine TAB* 5 MG PO SCH (08:01)
[2017-04-09] MEDS: Multivitamins/Minerals TAB PO SCH (08:01)
[2017-04-09] MEDS: Torsemide TAB* 20 MG PO SCH (08:01)
[2017-04-09] MEDS: Thiamine TAB* 100 MG TAB PO SCH (08:01)
[2017-04-09] MEDS: Folic Acid TAB* 1 MG PO SCH (08:01)
[2017-04-09] MEDS ORDERED: Potassium Chlor TAB* 20 MEQ TAB.ER PO ONE (08:38)
[2017-04-09] MEDS ORDERED: Magnesium Sulfate 1 GM IV* 1 GM/100 ML BAG IV ONE (08:38)
[2017-04-09] MEDS: Magnesium Oxide TAB* 400 MG PO SCH (10:24)
[2017-04-09] MEDS ORDERED: Acetaminophen TAB* 325 MG PO PRN (10:36)
[2017-04-09] MEDS ORDERED: Acetaminop/Codeine 30 MG TAB* 1 TAB (300 MG/30 MG) PO PRN (10:46)
--- NOTE | 2017-04-09 12:30 | PN ---
Subjective Date of Service: 04/09/17 Interval History: Pt still feels tremors. Spoke with SW and signed himself to outpatient alcohol and drug rehab Objective Active Medications: Acetaminophen (Tylenol Tab*) 650 mg PO Q4H PRN PRN Reason: FEVER/PAIN Acetaminophen/Codeine Phosphate (Tylenol/Codeine 30 Mg Tab*) 1 tab PO Q6H PRN PRN Reason: PAIN Last Admin: 04/09/17 11:03 Dose: 1 tab Amlodipine Besylate (Norvasc Tab*) 10 mg PO DAILY PENDING SALE TO [facility] Last Admin: 04/09/17 08:01 Dose: 10 mg Carvedilol (Coreg Tab*) 25 mg PO BID PENDING SALE TO [facility] Last Admin: 04/09/17 08:01 Dose: 25 mg Folic Acid (Folvite Tab*) 1 mg PO DAILY PENDING SALE TO [facility] Last Admin: 04/09/17 08:01 Dose: 1 mg Heparin Sodium (Porcine) (Heparin Vial(*)) 5,000 units SUBCUT Q8HR PENDING SALE TO [facility] Last Admin: 04/09/17 06:05 Dose: 5,000 units Hydralazine HCl (Apresoline Iv*) 10 mg IV SLOW PU Q6H PRN PRN Reason: Systolic Bp Greater Than: 185 Lorazepam (Ativan Tab(*)) 0 - 6 mg PO .PER [facility] PROTOCOL PENDING SALE TO [facility] PRN Reason: Protocol Last Admin: 04/09/17 00:54 Dose: 2 mg Lorazepam (Ativan Tab(*)) 2 mg PO Q12H PENDING SALE TO [facility] PRN Reason: Taper Stop: 04/11/17 07:59 Last Admin: 04/09/17 04:50 Dose: 2 mg Magnesium Oxide (Magox 400 Tab*) 800 mg PO DAILY PENDING SALE TO [facility] Last Admin: 04/09/17 10:24 Dose: 800 mg Multivitamins/Minerals (Theragran/Minerals Tab*) 1 tab PO DAILY PENDING SALE TO [facility] Last Admin: 04/09/17 08:01 Dose: 1 tab Ondansetron HCl (Zofran Inj*) 4 mg IV Q6H PRN PRN Reason: NAUSEA Thiamine HCl (Vitamin B-1 Tab*) 100 mg PO DAILY PENDING SALE TO [facility] Last Admin: 04/09/17 08:01 Dose: 100 mg Torsemide (Demadex*) 20 mg PO DAILY PENDING SALE TO [facility] Last Admin: 04/09/17 08:01 Dose: 20 mg Vital Signs - 8 hr 04/09/17 04/09/17 04/09/17 10:21 10:22 11:03 Temperature 98.2 F Pulse Rate 81 Respiratory 16 16 16 Rate Blood Pressure 142/89 (mmHg) O2 Sat by Pulse 98 Oximetry 04/09/17 11:55 Temperature Pulse Rate Respiratory 15 Rate Blood Pressure (mmHg) O2 Sat by Pulse Oximetry Oxygen Devices in Use Now: None Appearance: 47 yo M in NAD, AAOx3 Eyes: No Scleral Icterus, PERRLA Ears/Nose/Mouth/Throat: NL Teeth, Lips, Gums, Mucous Membranes Moist Neck: NL Appearance and Movements; NL JVP, Trachea Midline Respiratory: Symmetrical Chest Expansion and Respiratory Effort, Clear to Auscultation Cardiovascular: NL Sounds; No Murmurs; No JVD, RRR Abdominal: NL Sounds; No Tenderness; No Distention, No Hepatosplenomegaly Lymphatic: No Cervical Adenopathy Extremities: No Edema, No Clubbing, Cyanosis Skin: No Rash or Ulcers, No Nodules or Sclerosis Neurological: Alert and Oriented x 3, NL Muscle Strength and Tone, - - tremors in b/l UE noted Result Diagrams: 04/09/17 05:54 04/09/17 05:54 Additional Lab and Data: Lab Results 04/08/17 04/08/17 04/08/17 Range/Units 08:59 08:59 08:59 WBC 4.9 (3.5-10.8) 10^3/ul RBC 4.80 (4.0-5.4) 10^6/ul Hgb 14.6 (14.0-18.0) g/dl Hct 42 (42-52) % MCV 88 (80-94) fL MCH 31 (27-31) pg MCHC 35 (31-36) g/dl RDW 13 (10.5-15) % Plt Count 106 L (150-450) 10^3/ul MPV 8 (7.4-10.4) um3 Neut % (Auto) 73.9 (38-83) % Lymph % (Auto) 17.1 L (25-47) % [place] % (Auto) 7.9 (1-9) % Eos % (Auto) 0.1 (0-6) % Baso % (Auto) 1.0 (0-2) % Absolute Neuts (auto) 3.6 (1.5-7.7) 10^3/ul Absolute Lymphs (auto) 0.8 L (1.0-4.8) 10^3/ul Absolute Monos (auto) 0.4 (0-0.8) 10^3/ul Absolute Eos (auto) 0 (0-0.6) 10^3/ul Absolute Basos (auto) 0 (0-0.2) 10^3/ul Absolute Nucleated RBC 0 10^3/ul Nucleated RBC % 0.1 INR (Anticoag Therapy) 0.91 (0.77-1.02) Sodium 134 (133-145) mmol/L Potassium 3.7 (3.5-5.0) mmol/L Chloride 99 L (101-111) mmol/L Carbon Dioxide 15 L (22-32) mmol/L Anion Gap 20 H (2-11) mmol/L BUN 11 (6-24) mg/dL Creatinine 1.22 H (0.67-1.17) mg/dL Est GFR ( Amer) 81.2 (>60) Est GFR (Non-Af Amer) 63.1 (>60) BUN/Creatinine Ratio 9.0 (8-20) Glucose 195 H (70-100) mg/dL Lactic Acid (0.5-2.0) mmol/L Calcium 8.8 (8.6-10.3) mg/dL Magnesium 1.7 L (1.9-2.7) mg/dL Total Bilirubin 0.70 (0.2-1.0) mg/dL AST 104 H (13-39) U/L ALT 47 (7-52) U/L Alkaline Phosphatase 61 (34-104) U/L Total Creatine Kinase 2393 H (10-223) U/L Total Protein 7.4 (6.4-8.9) g/dL Albumin 3.4 (3.2-5.2) g/dL Globulin 4.0 (2-4) g/dL Albumin/Globulin Ratio 0.9 L (1-3) TSH 2.50 (0.34-5.60) mcIU/mL Serum Alcohol 20 H (<10) mg/dL Influenza A (Rapid) (Negative) Influenza B (Rapid) (Negative) 04/08/17 04/08/17 Range/Units 08:59 09:42 WBC (3.5-10.8) 10^3/ul RBC (4.0-5.4) 10^6/ul Hgb (14.0-18.0) g/dl Hct (42-52) % MCV (80-94) fL MCH (27-31) pg MCHC (31-36) g/dl RDW (10.5-15) % Plt Count (150-450) 10^3/ul MPV (7.4-10.4) um3 Neut % (Auto) (38-83) % Lymph % (Auto) (25-47) % [place] % (Auto) (1-9) % Eos % (Auto) (0-6) % Baso % (Auto) (0-2) % Absolute Neuts (auto) (1.5-7.7) 10^3/ul Absolute Lymphs (auto) (1.0-4.8) 10^3/ul Absolute Monos (auto) (0-0.8) 10^3/ul Absolute Eos (auto) (0-0.6) 10^3/ul Absolute Basos (auto) (0-0.2) 10^3/ul Absolute Nucleated RBC 10^3/ul Nucleated RBC % INR (Anticoag Therapy) (0.77-1.02) Sodium (133-145) mmol/L Potassium (3.5-5.0) mmol/L Chloride (101-111) mmol/L Carbon Dioxide (22-32) mmol/L Anion Gap (2-11) mmol/L BUN (6-24) mg/dL Creatinine (0.67-1.17) mg/dL Est GFR ( Amer) (>60) Est GFR (Non-Af Amer) (>60) BUN/Creatinine Ratio (8-20) Glucose (70-100) mg/dL Lactic Acid 9.4 H* (0.5-2.0) mmol/L Calcium (8.6-10.3) mg/dL Magnesium (1.9-2.7) mg/dL Total Bilirubin (0.2-1.0) mg/dL AST (13-39) U/L ALT (7-52) U/L Alkaline Phosphatase (34-104) U/L Total Creatine Kinase (10-223) U/L Total Protein (6.4-8.9) g/dL Albumin (3.2-5.2) g/dL Globulin (2-4) g/dL Albumin/Globulin Ratio (1-3) TSH (0.34-5.60) mcIU/mL Serum Alcohol (<10) mg/dL Influenza A (Rapid) Negative (Negative) Influenza B (Rapid) Negative (Negative) Assess/Plan/Problems-Billing Assessment: 47 yo M with h/o diastolic CHF, HTN, ETOH abuse presents after ETOH withdrawal seizure - Patient Problems (1) Alcohol withdrawal Comment: Was confused at night, now mild tremors noted. Due to witdrawal seizure needs to be cont on Ativan taper (2) Diastolic CHF Comment: chronic, euvolemic today. cont Torsemide (3) HTN (hypertension) Comment: cont home dose norvasc and coreg (4) DVT prophylaxis Comment: HSQ Status and Disposition: Due to h/o withdrawal seizure pt will need to be o0n Ativan taper for at least one more day. Inpatient admission started
[2017-04-10] MEDS: LORazepam TAB(*) 1 MG PO SCH (04:41)
[2017-04-10] MEDS: Heparin VIAL(*) 5000 UNITS/ML VIAL (FIVE THOUSAND) SUBCUT SCH (06:26)
[2017-04-10 06:48] LABS: EGFR Non-African American 70.4 (>60)
[2017-04-10] MEDS: Carvedilol TAB* 25 MG PO SCH (09:08)
[2017-04-10] MEDS: Torsemide TAB* 20 MG PO SCH (09:08)
[2017-04-10] MEDS: Thiamine TAB* 100 MG TAB PO SCH (09:08)
[2017-04-10] MEDS: Multivitamins/Minerals TAB PO SCH (09:08)
[2017-04-10] MEDS: Folic Acid TAB* 1 MG PO SCH (09:09)
[2017-04-10] MEDS: Magnesium Oxide TAB* 400 MG PO SCH (09:09)
[2017-04-10] MEDS: amLODIPine TAB* 5 MG PO SCH (09:09)
[2017-04-10] MEDS ORDERED: Potassium Chlor TAB* 20 MEQ TAB.ER PO ONE (09:25)
[2017-04-10 12:25] VITALS: BP 135/83
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
[2017-04-10] MEDS ORDERED: LORazepam TAB(*) 0.5 MG PO PRN (21:00)
--- NOTE | 2017-04-12 18:30 | DS ---
CC: Dr. Kwan DISCHARGE SUMMARY: DATE OF ADMISSION: 04/08/17 DATE OF DISCHARGE: 04/10/17 PRIMARY CARE PROVIDER: Dr. Kwan. DISCHARGE DIAGNOSES: 1. Alcohol withdrawal. 2. Alcohol withdrawal seizure. SECONDARY DIAGNOSES: 1. Chronic systolic and diastolic heart failure with EF of 45% to 50%. 2. Hypertension. 3. History of alcoholism. MEDICATIONS AT DISCHARGE: Include: 1. Torsemide 20 mg daily. 2. Thiamine 100 mg daily. 3. Multivitamin 1 tablet daily. 4. Ativan 0.5 mg every 12 hours x3 doses total. 5. Folic acid 1 mg daily. 6. Coreg 25 mg b.i.d. 7. Amlodipine 5 mg daily. LABORATORY DATA DURING THE HOSPITAL STAY: Included: On 04/09/17, white blood cell count 4.3, hemoglobin 13.3, hematocrit of 37, and platelets of 85. On 04/10/17, sodium of 133, potassium 3.3, chloride 103, carbon dioxide 24, BUN 13, creatinine 1.11. The patient's EEG obtained on 04/09/17, clinical impression: "That was a normal waking and drowsy EEG . There are no epileptiform abnormalities." HOSPITALIZATION COURSE: Will Ceja is a 47-year-old male with history of alcoholism and diastolic C HF, who presented to the hospital 2 days after he stopped drinking alcohol after a seizure. He was a dmitted to the hospital, placed on Ativan scheduled taper to prevent future seizures. The patient al so was placed on Ativan withdrawal protocol for alcohol withdrawal symptoms. The patient was tremulo us on the first day of his hospital stay but on the second day, he felt much better and was ready to go home. He is going to finish up taper of Ativan for seizure prevention at home. He was evaluated by psychosocial rehabilitation counselor at the hospital and signed to AA meetings and signed up for behavioral services help due to his history of depression in the past. PHYSICAL EXAMINATION AT THE TIME OF DISCHARGE: At the time of discharge, blood pressure of 135/83, h eart rate of 74 and regular, respiratory rate of 16, oxygen saturation 94% on room air, temperature 9 8.4. General: The patient is a very pleasant 47-year-old male, who is in no acute distress. Alert, awake, and oriented x3. HEENT: Head: Atraumatic, normocephalic. Eyes: Pupils are equal, reactiv e to light and accommodation. Oropharynx is clear. Mucosa moist. Neck: Supple. No JVD. No bruits bilaterally. Cardiovascular: Regular rate and rhythm. No murmur. Respiratory: Clear to ausculta tion bilaterally. Abdomen: Soft, nontender. Bowel sounds are present in all 4 quadrants. Extremit ies: There is no edema. Pulses are +2 bilaterally. There is no clubbing or cyanosis. Neuro evalua tion: Speech clear. Cranial nerves II through XII are grossly intact. Motor strength is 5/5 bilater ally. FOLLOWUP: The patient was recommended to see Dr. Kwan in approximately 4 to 7 days after his di scharge. Please note that this is a short summary of the patient's hospitalization. Please refer to further m edical records for details. TIME SPENT: Approximately 35 minutes were spent on patient's discharge. [id number]/[facility] #: [id number]
== END 2017-04-10 13:35 | disposition home or self-care (01) | DRG 775 ==
LOC: ED 08:40 → MED 11:59 → OBSVTOIN 04-09 08:39
PROVIDERS: ADMIT Internal Medicine; ATTEND Internal Medicine
PROC: 4A10X4Z Monitoring of Central Nervous Electrical Activity, External Approach (ICD-10-PCS; principal; 2017-04-09)
DX: F10.239 Alcohol dependence with withdrawal, unspecified (principal); N17.9 Acute kidney failure, unspecified; D69.6 Thrombocytopenia, unspecified; E87.2 Acidosis; I50.42 Chronic combined systolic (congestive) and diastolic (congestive) heart failure; E83.42 Hypomagnesemia; G40.89 Other seizures; J45.909 Unspecified asthma, uncomplicated; F41.0 Panic disorder [episodic paroxysmal anxiety]; Y90.1 Blood alcohol level of 20-39 mg/100 ml
CPT/HCPCS: 36415; 71045; 80048; 80053; 80320; 81003; 81015; 82550; 83605; 83735; 84443; 85025; 85060; 85610; 87502; 93005; 95819; 99284; A9270-GY; G0378; G0480; J0360; J1644; J2060; J3411; J3475

== ENCOUNTER 2017-04-11 21:24 | Emergency (ER) | payer OTHER ==
--- NOTE | 2017-04-12 04:47 | ED ---
Sammy Sanchez Stephanie, scribed for Adelia Mann MD on 04/11/17 at 2236 . Substance Abuse/Use - HPI Summary HPI Summary: The pt is a 47 y/o M BIBA to the ED due to ETOH intoxication. The pt denies LOC or fall. The pt is unable to give HPI. - History Of Current Complaint Chief Complaint: EDSubstanceAbuse Stated Complaint: ETOH Time Seen by Provider: 04/11/17 21:52 Hx Obtained From: Patient Hx From Patient Unobtainable Due To: Other - ETOH intoxication - Allergies/Home Medications Allergies/Adverse Reactions: Allergies Allergy/AdvReac Type Severity Reaction Status Date / Time No Known Allergies Allergy Verified 01/21/17 00:13 PMH/Surg Hx/FS Hx/Imm Hx Endocrine/Hematology History: Reports: Other Endocrine/Hematological Disorders - hypoglycemia Denies: Hx Diabetes, Hx Thyroid Disease Cardiovascular History: Reports: Hx Congestive Heart Failure Denies: Hx Hypertension, Hx Pacemaker/ICD Respiratory History: Reports: Hx Asthma Denies: Hx Chronic Obstructive Pulmonary Disease (COPD) GI History: Denies: Hx Ulcer Sensory History: Denies: Hx Contacts or Glasses, Hx Legally Blind, Hx Deafness, Hx Hearing Aid Opthamlomology History: Denies: Hx Contacts or Glasses, Hx Legally Blind Psychiatric History: Reports: Hx Panic Disorder, Hx of Violent Episodes Against Others Denies: Hx Eating Disorder - Surgical History Surgery Procedure, Year, and Place: None Infectious Disease History: No Infectious Disease History: Denies: Hx Hepatitis, Hx Human Immunodeficiency Virus (HIV), Traveled Outside the [place] in Last 30 Days - Family History Known Family History: Positive: Unknown - Halfway and "has not seen parents in a long time" Negative: Cardiac Disease Family History: The patient does not know his family Hx. - Social History Occupation: Employed Full-time Lives: Alone Alcohol Use: Daily Alcohol Amount: 2, 12 packs daily Hx Substance Use: No Substance Use Type: Reports: None Substance Use Comment - Amount & Last Used: 2 weeks ago Hx Tobacco Use: No Smoking Status (MU): Never Smoked Tobacco Review of Systems - ROS Summary Review of Systems Summary: The pt is intoxicated and unable to provide ROS. All Other Systems Reviewed And Are Negative: No Physical Exam - Summary Physical Exam Summary: VITAL SIGNS: Reviewed. GENERAL: Patient is a well-developed and nourished MALE who is lying comfortable in the stretcher. Patient is not in any acute respiratory distress. ETOH in breathe. HEAD AND FACE: No signs of trauma. No ecchymosis, hematomas or skull depressions. No sinus tenderness. EYES: PERRLA, EOMI x 2, No injected conjunctiva, no nystagmus. EARS: Hearing grossly intact. Ear canals and tympanic membranes are within normal limits. MOUTH: Oropharynx within normal limits. NECK: Supple, trachea is midline, no adenopathy, no JVD, no carotid bruit, no c- spine tenderness, neck with full ROM. CHEST: Symmetric, no tenderness at palpation LUNGS: Clear to auscultation bilaterally. No wheezing or crackles. CVS: Regular rate and rhythm, S1 and S2 present, no murmurs or gallops appreciated. ABDOMEN: Soft, non-tender. No signs of distention. No rebound no guarding, and no masses palpated. Bowel sounds are normal. EXTREMITIES: FROM in all major joints, no edema, no cyanosis or clubbing. NEURO: Speech is normal and follows commands. The pt is unable to be evaluated due to ETOH intoxication. SKIN: Dry and warm Triage Information Reviewed: Yes Vital Signs On Initial Exam: Initial Vitals Temp Pulse Resp BP Pulse Ox 97.9 F 86 18 116/69 96 04/11/17 21:36 04/11/17 21:36 04/11/17 21:36 04/11/17 21:36 04/11/17 21:36 Vital Signs Reviewed: Yes Diagnostics - Vital Signs Vital Signs Temp Pulse Resp BP Pulse Ox 04/11/17 21:36 97.9 F 86 18 116/69 96 - Laboratory Lab Statement: Any lab studies that have been ordered have been reviewed, and results considered in the medical decision making process. Course/Dx - Course Course Of Treatment: The pt is a 47 y/o M BIBA to the ED due to ETOH intoxication. The pt denies LOC or fall. The pt was kept in the ED pending ETOH metabolism. His serum ETOH levels are now within normal limits and he will be discharged. - Diagnoses Differential Diagnosis/HQI/PQRI: Positive: Alcohol Abuse Provider Diagnoses: Alcohol intoxication Discharge - Discharge Plan Condition: Stable Disposition: HOME Patient Education Materials: Alcohol Intoxication (ED), Abuse of Alcohol (ED) Referrals: Keely Kwan MD [Primary Care Provider] - 3 Days Additional Instructions: RETURN TO EMERGENCY DEPARTMENT FOR ANY NEW OR WORSENING SYMPTOMS The documentation as recorded by the Sammy cole Stephanie accurately reflects the service I personally performed and the decisions made by me, Adelia Mann MD.
[2017-04-12 05:00] VITALS: BP 146/94
== END 2017-04-12 04:59 | disposition home or self-care (01) ==
LOC: ED 21:24
DX: F10.129 Alcohol abuse with intoxication, unspecified (principal)
CPT/HCPCS: 99282

== ENCOUNTER 2017-08-25 18:37 | Emergency (ER) | payer MEDICAID, OTHER ==
[2017-08-25 20:14] VITALS: BP 167/112
--- NOTE | 2017-08-25 20:16 | ED ---
Mikie Sanchez Natalie, scribed for Phani Nunez MD on 08/25/17 at 1921 . Substance Abuse/Use - HPI Summary HPI Summary: The patient is a 47 y/o M presenting to the ED BIB EMS as 941 c/o EToH intoxication outside in the heat today. The pt reports that he doesn't have anywhere to go because he's afraid to go to where he was living before. He additionally c/o sleep deprivation. He states that he is a "very bad alcoholic. " He has hx of HTN. - History Of Current Complaint Chief Complaint: EDGeneral Stated Complaint: 2208 Time Seen by Provider: 08/25/17 18:47 Hx Obtained From: Patient Onset/Duration of Drug/ETOH Abuse: Weeks Ingestion History: Type/Name Of Drug - EToH Overdose Characteristics: Oral Timing Of Abuse: Daily Severity Initially: Moderate Severity Currently: Moderate Character: Fearful - can't go home Aggravating Factor(s): Nothing Alleviating Factor(s): Nothing Associated Signs And Symptoms: Other: - sleep deprivation - Allergies/Home Medications Allergies/Adverse Reactions: Allergies Allergy/AdvReac Type Severity Reaction Status Date / Time No Known Allergies Allergy Verified 08/25/17 18:52 PMH/Surg Hx/FS Hx/Imm Hx Endocrine/Hematology History: Reports: Other Endocrine/Hematological Disorders - hypoglycemia Denies: Hx Diabetes, Hx Thyroid Disease Cardiovascular History: Reports: Hx Congestive Heart Failure Denies: Hx Hypertension, Hx Pacemaker/ICD Respiratory History: Reports: Hx Asthma Denies: Hx Chronic Obstructive Pulmonary Disease (COPD) GI History: Denies: Hx Ulcer Sensory History: Denies: Hx Contacts or Glasses, Hx Legally Blind, Hx Deafness, Hx Hearing Aid Opthamlomology History: Denies: Hx Contacts or Glasses, Hx Legally Blind Psychiatric History: Reports: Hx Panic Disorder, Hx of Violent Episodes Against Others Denies: Hx Eating Disorder - Surgical History Surgery Procedure, Year, and Place: None - Immunization History Immunizations Up to Date: Unable to Obtain/Confirm Infectious Disease History: No Infectious Disease History: Denies: Hx Hepatitis, Hx Human Immunodeficiency Virus (HIV), Traveled Outside the [place] in Last 30 Days - Family History Known Family History: Negative: Cardiac Disease Family History: The patient does not know his family Hx. - Social History Alcohol Use: Daily Alcohol Amount: 2, 12 packs daily Hx Substance Use: No Substance Use Type: Reports: None Substance Use Comment - Amount & Last Used: 2 weeks ago Hx Tobacco Use: No Smoking Status (MU): Never Smoked Tobacco Review of Systems Neurological: Other - sleep deprivation Psychological: Other - EToH intoxication All Other Systems Reviewed And Are Negative: Yes Physical Exam - Summary Physical Exam Summary: Appearance: Well appearing, no pain distress Skin: warm, dry, reflects adequate perfusion Head/face: normal Eyes: EOMI, KALPESH ENT: normal Neck: supple, non-tender Respiratory: CTA, breath sounds present Cardiovascular: RRR, pulses symmetrical Abdomen: non-tender, soft Bowel Sounds: present Musculoskeletal: normal, strength/ROM intact Neuro: normal, sensory motor intact, A&Ox3 Triage Information Reviewed: Yes Vital Signs On Initial Exam: Initial Vitals Temp Pulse Resp BP Pulse Ox 99.8 F 102 20 179/93 94 08/25/17 18:48 08/25/17 18:48 08/25/17 18:48 08/25/17 18:48 08/25/17 18:48 Vital Signs Reviewed: Yes Diagnostics - Vital Signs Vital Signs Temp Pulse Resp BP Pulse Ox 08/25/17 18:48 99.8 F 102 20 179/93 94 - Laboratory Lab Statement: Any lab studies that have been ordered have been reviewed, and results considered in the medical decision making process. Course/Dx - Course Course Of Treatment: Patient has been exposed to the heat throughout the day and feels that he is very thirsty. He had been drinking as well. He is not visibly intoxicated. He is calm and appropriate. He has no active medical complaint. He was given oral hydration, a meal here. He will be discharged but stay here at [facility] in a safe snf setting given the extreme heat - Diagnoses Provider Diagnoses: Homelessness, Heat exhaustion Discharge - Sign-Out/Discharge Documenting (check all that apply): Discharge/Admit/Transfer - Pt will be discharged. - Discharge Plan Condition: Improved Disposition: HOME Discharge Disposition Comment: patient stays at [facility] for safe snf during time of extreme heat Patient Education Materials: Heat Exhaustion (ED) Referrals: Keely Kwan MD [Primary Care Provider] - Additional Instructions: Return if worse, new symptoms or other concerns. Do not drink alcohol to excess. - Billing Disposition and Condition Condition: IMPROVED Disposition: Home The documentation as recorded by the Mikie cole Natalie accurately reflects the service I personally performed and the decisions made by me, Phani Nunez MD.
== END 2017-08-25 20:14 | disposition home or self-care (01) ==
LOC: ED 18:37
DX: T67.5XXA Heat exhaustion, unspecified, initial encounter (principal); X30.XXXA Exposure to excessive natural heat, initial encounter; Y92.9 Unspecified place or not applicable; I10 Essential (primary) hypertension; Z59.0 Homelessness
CPT/HCPCS: 99283

== ENCOUNTER 2017-09-02 17:54 | Inpatient (IN) | payer MEDICAID ==
[2017-09-02 21:43] LABS: ABS Basophils 0 10^3/ul (0-0.2); ABS Eosinophils 0.1 10^3/ul (0-0.6); ABS Monocytes 0.2 10^3/ul (0-0.8); ABS Neutrophils 2.1 10^3/ul (1.5-7.7); ABS Nucleated RBC 0 10^3/ul; Eosinophil % 1.4 % (0-6); Hematocrit 41 % (42-52); Mean Corpuscular HGB Conc 35 g/dl (31-36); Mean Corpuscular Hemoglobin 29 pg (27-31); Mean Corpuscular Volume 83 fL (80-94); Mean Platelet Volume 7.2 um3 (7.4-10.4); Nucleated Red Blood Cells % 0.2; Platelet Count 150 10^3/ul (150-450); Red Blood Count 4.87 10^6/ul (4.00-5.40); Red Cell Distribution Width 14 % (10.5-15); White Blood Count 4.5 10^3/ul (3.5-10.8)
[2017-09-02 22:01] LABS: EGFR Non-African American 59.2 (>60)
--- NOTE | 2017-09-02 22:02 | ED ---
Daisha Sanchez Jacob, scribed for Ramiro Philip MD on 09/02/17 at 1924 . Substance Abuse/Use - HPI Summary HPI Summary: Pt is a 47 y/o M brought in to ED by EMS. ICD found pt sleeping in grass. Pt was intoxicated and unable to stand on his own. Level 5 caveat due to intoxication. - History Of Current Complaint Chief Complaint: EDSubstanceAbuse Stated Complaint: 2208 Time Seen by Provider: 09/02/17 17:58 Hx Obtained From: EMS Onset/Duration of Drug/ETOH Abuse: Hours Associated Signs And Symptoms: Intentional Ingestion - EtOH intoxication, Other : - level 5 caveat due to EtOH intoxication - Allergies/Home Medications Allergies/Adverse Reactions: Allergies Allergy/AdvReac Type Severity Reaction Status Date / Time No Known Allergies Allergy Verified 08/25/17 18:52 PMH/Surg Hx/FS Hx/Imm Hx Endocrine/Hematology History: Reports: Other Endocrine/Hematological Disorders - hypoglycemia Denies: Hx Diabetes, Hx Thyroid Disease Cardiovascular History: Reports: Hx Congestive Heart Failure Denies: Hx Hypertension, Hx Pacemaker/ICD Respiratory History: Reports: Hx Asthma Denies: Hx Chronic Obstructive Pulmonary Disease (COPD) GI History: Denies: Hx Ulcer Sensory History: Denies: Hx Contacts or Glasses, Hx Legally Blind, Hx Deafness, Hx Hearing Aid Opthamlomology History: Denies: Hx Contacts or Glasses, Hx Legally Blind Psychiatric History: Reports: Hx Panic Disorder, Hx of Violent Episodes Against Others Denies: Hx Eating Disorder - Surgical History Surgery Procedure, Year, and Place: None Infectious Disease History: No Infectious Disease History: Denies: Hx Hepatitis, Hx Human Immunodeficiency Virus (HIV), Traveled Outside the US in Last 30 Days - Family History Known Family History: Positive: Unknown - Halfway and "has not seen parents in a long time" Negative: Cardiac Disease Family History: The patient does not know his family Hx. - Social History Alcohol Use: Daily Alcohol Amount: 2, 12 packs daily Hx Substance Use: No Substance Use Type: Reports: None Substance Use Comment - Amount & Last Used: 2 weeks ago Hx Tobacco Use: No Smoking Status (MU): Never Smoked Tobacco Review of Systems All Other Systems Reviewed And Are Negative: No - Comments Additional Review of Systems Comments: Level 5 caveat: disjointed speech/nonsensical due to EtOH intoxication. Physical Exam - Summary Physical Exam Summary: Appearance: Well-appearing, Well-nourished, lying in bed comfortably Skin: Warm, dry, no obvious rash Eyes: sclera anicteric, no conjunctival pallor ENT: mucous membranes moist, pharynx appears normal Neck: Supple, nontender Respiratory: Clear to auscultation, no signs of respiratory distress Cardiovascular: Normal S1, S2. No murmurs. Normal distal pulses in tibial and radial bilaterally. Abdomen: Soft, nontender, normal active bowel sounds present Musculoskeletal: Normal, Strength/ROM Intact Neurological: intoxicated, disjointed speech, dystaxia Psychiatric: affect is normal, does not appear anxious or depressed Triage Information Reviewed: Yes Vital Signs On Initial Exam: Initial Vitals Temp Pulse Resp BP Pulse Ox 98.1 F 89 20 142/98 94 09/02/17 17:57 09/02/17 17:57 09/02/17 17:57 09/02/17 17:57 09/02/17 17:57 Vital Signs Reviewed: Yes Diagnostics - Vital Signs Vital Signs Temp Pulse Resp BP Pulse Ox 09/02/17 17:57 98.1 F 89 20 142/98 94 - Laboratory Result Diagrams: 09/02/17 21:30 Lab Statement: Any lab studies that have been ordered have been reviewed, and results considered in the medical decision making process. Course/Dx - Course Course Of Treatment: Initially plan was observe until sober and discharge, but as pt began sobering up he expressed feeling unsafe, thinking he did not want to live anymore but without definite SI or a plan. Based on possible need of MH evaluation, labs ordered and are pending. Case will be signed out for possible MH eval. - Diagnoses Provider Diagnoses: Alcohol intoxication Discharge - Sign-Out/Discharge Documenting (check all that apply): Sign-Out Patient Signing out patient TO: Adelia Mann - Discharge Plan Referrals: Keely Kwan MD [Primary Care Provider] - The documentation as recorded by the Daisha cole Jacob accurately reflects the service I personally performed and the decisions made by me, Ramiro Philip MD.
[2017-09-02] MEDS ORDERED: Potassium Chlor TAB* 20 MEQ TAB.ER PO ONE (22:03)
--- NOTE | 2017-09-03 09:26 | ED ---
Progress - Progress Note Progress Note: This pt was signed out by Dr. Mann at shift change, pending disposition, awaiting MHE. Pt had a mental health evaluation and his case was reviewed by Dr. Ricci, psychiatrist. Dr. Ricci recommends admission for the pt. Pt will be voluntarily admitted to [facility] psych. Course/Dx - Diagnoses Provider Diagnoses: Alcohol intoxication, Depression Discharge - Sign-Out/Discharge Documenting (check all that apply): Patient Departure - Admit, Receiving Sign- Out Receiving patient FROM: Adelia Mann - Discharge Plan Condition: Stable Disposition: PSYCHIATRIC FACILITY-[facility] - Billing Disposition and Condition Condition: STABLE Disposition: Psychiatric Facility [facility]
[2017-09-03] MEDS ORDERED: chlordiazePOXIDE CAP* 25 MG PO ONE (11:40)
[2017-09-03] MEDS ORDERED: Torsemide TAB* 20 MG PO SCH (13:00)
[2017-09-03] MEDS ORDERED: amLODIPine TAB* 5 MG PO SCH (13:00)
[2017-09-03] MEDS: Carvedilol TAB* 25 MG PO SCH ×2 (13:39→20:11)
[2017-09-03] MEDS: LORazepam TAB(*) 0.5 MG PO PRN (16:40)
--- NOTE | 2017-09-03 19:57 | CONS ---
CONSULTATION REPORT: DATE OF CONSULT: 09/03/17 PATIENT OF: Dr. Ricci from the behavioral health unit. REFERRED TO: Dr. Alfredo Araujo. ATTENDING HOSPITALIST WHILE PATIENT IN THE HOSPITAL: Dr. Araujo. CHIEF COMPLAINT: Depression and alcohol abuse. REASON FOR CONSULT: Hypertension. HISTORY OF PRESENT ILLNESS: Mr. Ceja is a 47-year-old gentleman who presented to the emergency room yesterday for mental health evaluation. The patient has a longstanding history of psychiatric disorder as well as depression and alcohol intoxication. He had his mental health evaluation in the ED yesterday and Dr. Ricci recommended admission to behavioral health unit and it will be voluntary admission for further evaluation and treatment of chronic depressive disorder. The patient also has history of hypertension, for which he has been on 3 different antihypertensive agents in the past. He has been seen in the remote past by Dr. Keely Kwan as a [facility], who has been managing his hypertension as well as chronic systolic and diastolic heart failure. The patient's last ejection fraction was noted to be in July of 2016, 45% to 50%. He spent the entire evening yesterday and last night in the ED prior to his admission to [facility] and he denies taking any of his blood pressure medication. His vitals were reviewed a few times this afternoon and noted to have elevated blood pressure of 180s/110s. We were asked to see the patient for further evaluation of medical co- management and to assess hypertension, possibly resume home medication. PAST MEDICAL HISTORY: As mentioned above, significant for: 1. Hypertension. 2. Alcohol abuse. 3. Chronic systolic and diastolic heart failure. PAST SURGICAL HISTORY: None. CURRENT MEDICATIONS: His medications at home include: 1. Coreg 25 mg p.o. b.i.d. 2. Folic acid 1 mg p.o. daily. 3. Demadex 20 mg p.o. daily. 4. Norvasc 5 mg p.o. daily. 5. Ativan 0.5 mg q. 12 hours as needed for anxiety. 6. Magnesium oxide 800 mg p.o. daily. 7. Multivitamins with minerals 1 tablet p.o. daily. 8. Vitamin B1 100 p.o. daily. ALLERGIES: He has no known drug allergies. FAMILY HISTORY: Noncontributory. SOCIAL HISTORY: The patient is a nonsmoker, who denies illicit drug use. He continues to drink 2 to 3 beers daily on a regular basis and occasionally drinks a bottle of alcohol overnight. The patient does not have any surrogate decision maker and has no one to name at this time. REVIEW OF SYSTEMS: Fourteen points review of systems were reviewed and all pertinent positives were mentioned in the HPI, otherwise review of systems was negative. PHYSICAL EXAM: General: He is a pleasant, healthy-appearing, gentleman, in no acute distress or discomfort at the time of consultation. Vitals revealed temperature of 99.4, pulse of 82, respirations of 18, blood pressure of 177/86, and O2 sat of 99% on room air. HEENT: Head is normocephalic, atraumatic. Sclerae anicteric. PERRLA. EOMs intact. Oropharynx is pink and moist. Neck: Supple. Trachea midline. No cervical adenopathy, thyromegaly, or JVD. Lungs: Clear to auscultation bilaterally. Heart: Regular rate and rhythm. Normal S1 and S2 without rubs, murmurs, or gallops. Back: With normal curvature. No CVA tenderness. Abdomen: Soft, nontender, and nondistended. No hernias, masses, or hepatosplenomegaly. Extremities: Without cyanosis, clubbing, or edema. Neurologic: Grossly intact. Rectal exam deferred at this time. IMPRESSION: A 47-year-old gentleman with a longstanding history of depressive disorder as well as alcohol abuse and medical comorbidities including hypertension, who was admitted this afternoon to behavioral health unit after he spent the night in the ED awaiting mental health evaluation, who was found to be hypertensive due to not taking his medicine for the past 24 hours. ASSESSMENT AND PLAN: 1. Hypertensive urgency. The patient appears to be stable at this time. He took his dose of carvedilol as well as Norvasc earlier today and now he seems to be normotensive. We would recommend continue his all 3 medications, Coreg 25 mg p.o. b.i.d., Demadex 20 mg p.o. daily, and amlodipine 5 mg p.o. daily as well as Ativan as needed for anxiety. 2. Depressive disorder. The patient is a resident of behavioral health unit now and care will be per psychologist. 3. Alcohol dependence. Continue multivitamin and vitamin B1, B6 supplement and monitor for a DT. 4. DVT prophylaxis: He is healthy, at low risk. We will encourage ambulation. 5. Code status: He is a full code. RECOMMENDATIONS: We will continue his antihypertensive medicine and we will sign off for the patient at this time, however if any other issue arise, please feel free to call us and we would be happy to participate in his care. TIME SPENT: Approximately 45 minutes was spent in consultation with more than 50% on [id number] taking history and performing physical exam. I have discussed the case with my attending, who agreed to the plan of care. ISA CEDILLO [id number]/CPS #: [id number] GWENDOLYN
[2017-09-04] MEDS: Torsemide TAB* 20 MG PO SCH (08:10)
[2017-09-04] MEDS: Folic Acid TAB* 1 MG PO SCH (08:10)
[2017-09-04] MEDS: Thiamine TAB* 100 MG TAB PO SCH (08:10)
[2017-09-04] MEDS: Multivitamins/Minerals TAB PO SCH (08:10)
[2017-09-04] MEDS: Carvedilol TAB* 25 MG PO SCH ×2 (08:11→20:25)
[2017-09-04] MEDS: amLODIPine TAB* 5 MG PO SCH (08:11)
[2017-09-04] MEDS: Magnesium Oxide TAB* 400 MG PO SCH (08:12)
[2017-09-04] MEDS: LORazepam TAB(*) 0.5 MG PO PRN (08:13)
[2017-09-04] MEDS ORDERED: Pneumococcal *Vac Polyvalent 0.5 ML VIAL IM ONE (09:00)
[2017-09-04] MEDS ORDERED: LORazepam TAB(*) 1 MG PO SCH (11:00)
[2017-09-04] MEDS ORDERED: buPROPion TAB* 100 MG PO ONE (12:32)
[2017-09-04] MEDS: Ibuprofen TAB* 600 MG PO PRN ×2 (12:54→20:25)
[2017-09-04 14:48] LABS: Urine Appearance Clear; Urine Blood Negative (Negative); Urine Color Yellow; Urine Ketones Negative (Negative); Urine Protein 3+(>=500 mg/dL) (Negative); Urine Red Blood Cell 2+(6-10/hpf) (Absent); Urine Specific Gravity 1.012 (1.010-1.030); Urine Urobilinogen Negative (Negative); Urine White Blood Cell Trace(0-5/hpf) (Absent)
[2017-09-04] MEDS ORDERED: Gabapentin CAP(*) 100 MG PO PRN (15:48)
[2017-09-04] MEDS ORDERED: traZODone TAB* 50 MG TAB PO SCH (21:00)
[2017-09-04] MEDS ORDERED: traZODone TAB* 50 MG TAB PO PRN (22:00)
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
[2017-09-05] MEDS: Magnesium Oxide TAB* 400 MG PO SCH (09:13)
[2017-09-05] MEDS: Folic Acid TAB* 1 MG PO SCH (09:13)
[2017-09-05] MEDS: Torsemide TAB* 20 MG PO SCH (09:14)
[2017-09-05] MEDS: amLODIPine TAB* 5 MG PO SCH (09:14)
[2017-09-05] MEDS: Multivitamins/Minerals TAB PO SCH (09:14)
[2017-09-05] MEDS: Carvedilol TAB* 25 MG PO SCH (09:14)
[2017-09-05] MEDS: Thiamine TAB* 100 MG TAB PO SCH (09:14)
[2017-09-05] MEDS ORDERED: Potassium Chlor TAB* 20 MEQ TAB.ER PO ONE (10:00)
[2017-09-05 10:16] VITALS: BP 142/86
[2017-09-05] MEDS ORDERED: BuPROPion XL* 150 MG TAB.XL PO SCH (11:00)
--- NOTE | 2017-09-05 23:11 | DS ---
CC: [facility]; [place] [facility]; [facility] * DISCHARGE SUMMARY: DATE OF ADMISSION: 09/03/17 DATE OF DISCHARGE: 09/05/17 SUPERVISING PSYCHIATRIST: Dr. Paras Ricci.* (DICTATED BY BROOKS CLARKE NP) DISCHARGE DIAGNOSES: 1. Alcohol use disorder. 2. Unspecified depressive disorder. CONDITION AT THE TIME OF DISCHARGE: Improved. The patient is calm and in behavioral control. He has been decreased from 30-minute observation and has been safe on all checks. He states that he is no longer having thoughts of suicide. He requests to be discharged today. The patient has been actively participating in discharge planning. 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 The patient has reported mild anxiety in regards to alcohol craving. He is receptive to medications and treatment referrals. We discussed his blood results including hemoglobin A1c and lipid panel. The patient agrees to follow up with his primary care provider, Dr. Kwan, for this electrolytes and hypertension. MENTAL STATUS EXAM: Will is a 47-year-old black male with muscular build. He is calm, cooperative, and answers questions fully. Alert and oriented x3. Dressed in casual clothing and is well groomed. Speech is soft and articulate. Mood is euthymic. Affect is congruent. Thought process is logical, goal- directed and circumstantial in regards to discharge planning. Thought content is negative for suicidal ideation, HI, or . He denies AV, hallucinations. Insight and judgment are good in that he is willing to seek outpatient services for depression and alcohol use disorder. Fund of knowledge is adequate. INSTRUCTIONS GIVEN TO THE PATIENT: A. Medications: Amlodipine 5 mg p.o. daily, bupropion XL 150 mg p.o. daily, Coreg 25 mg p.o. b.i.d., gabapentin 200 mg t.i.d. p.r.n. anxiety, magnesium oxide 400 mg 2 tabs daily, naltrexone 50 mg daily, potassium chloride 10 mEq p.o. daily, torsemide 20 mg p.o. daily, and trazodone 100 mg p.o. at bedtime q.h.s. p.r.n. insomnia. The above medications were electronically prescribed to [facility] in [place]. B. Diet: Low-fat, low-cholesterol. C. Activity: As tolerated. Tobacco cessation is not applicable. Pending labs , the patient is given a lab order to complete BMP in the next week and a copy of this will go to Dr. Kwan. Lemuel. Followup care. The patient has an intake at [facility] on 09/11/17, at 8:30 a.m. [facility]. The patient is to go straight to [facility] at the time of discharge and speak with his worker, Vi Jaramillo, to secure emergency housing. [facility], has appointments with his therapist, Juventino, 09/10/17 at 1:[address] Kwan at [facility] in [place]. The office will call to schedule an appointment with him as his primary provider is on vacation this week. Patient does not have a phone but states messages can be given to [facility]. E. Substance abuse followup. As above, the patient is following up with [facility]. He has also accepted offer of naltrexone and FDA approved medications for alcohol use disorder. HOSPITAL COURSE: Part A: Reason for admission: The patient presented to the emergency department via EMS. He was found by the [place] [employer] intoxicated and sleeping on the grass. He endorsed suicidal ideations with a plan to jump in front of the truck during his emergency room evaluation. Laboratory data in the ED included MARIAM level of 399. His urinalysis was positive for benzodiazepines, but this was after being given a dose of Librium. His potassium was 3.2. Part B: Psychiatric treatment rendered: The patient was admitted to adult behavioral services unit on voluntary status. Code status is full. He was placed on 15-minute checks for his safety. He was encouraged to participate in supportive milieu, individual sessions with staff and psychoeducational groups. The patient participated fully in interviews with various staff and providers. He reported desire to stop alcohol use and was offered referrals to inpatient substance use treatment. He politely declined these and agreed to go to outpatient at [facility]. The patient was agreeable to return to [facility] for counseling and he had already started seeing Juventino Wilkes. The patient was placed on WAM protocol to observe for alcohol detox. He did not score on the WAM. He was receptive to gabapentin for anxiety and cravings as well as starting naltrexone for alcohol use disorder. The patient endorsed depressive symptoms including amotivation, low energy, and depressed mood. He tolerated a single dose of bupropion with no untoward effects and then was started on XL 150 mg. Hospitalist service was involved due to the patient's hypertension and hypokalemia. He was started on potassium and antihypertensive. We obtained hemoglobin A1c and lipid panel, which were both elevated. I discussed these results with the patient and encouraged him to follow up with his primary care provider and also gave patient education about hyperlipidemia. We also discussed abstaining from alcohol will improve his physical health as well. On the day of discharge, the patient requested discharge. He was offered to remain in the hospital to help with discharge planning, but he preferred to leave today. He denied suicidal ideation or passive wish. He reported improvement in mood and sleep with current medications. He exhibited motivation to discharge today to pursue leads on housing and employment. As stated above, he has been actively involved in discharge planning and been in contact with outpatient providers to assist in psychosocial needs. Due to obligation to treatment in less restrictive setting, treatment team decided upon discharge. BROOKS CLARKE NP [id number]/CPS #: [id number] GWENDOLYN
[2017-09-06] MEDS ORDERED: Potassium Chlor TAB* 10 MEQ TAB.ER PO SCH (09:00)
== END 2017-09-05 12:20 | disposition home or self-care (01) | DRG 775 ==
LOC: ED 17:54 → BSU 09-03 13:20
PROVIDERS: ADMIT Psychiatry & Neurology Psychiatry; ATTEND Psychiatry & Neurology Psychiatry
DX: F10.229 Alcohol dependence with intoxication, unspecified (principal); R45.851 Suicidal ideations; I50.42 Chronic combined systolic (congestive) and diastolic (congestive) heart failure; F32.9 Major depressive disorder, single episode, unspecified; Y90.8 Blood alcohol level of 240 mg/100 ml or more; E87.6 Hypokalemia; E78.5 Hyperlipidemia, unspecified; Z91.5 Personal history of self-harm; Z59.0 Homelessness; I11.0 Hypertensive heart disease with heart failure; J45.909 Unspecified asthma, uncomplicated; F41.0 Panic disorder [episodic paroxysmal anxiety]; I16.0 Hypertensive urgency; Z23 Encounter for immunization
CPT/HCPCS: 36415; 80053; 80061; 80307; 80320; 81003; 81015; 83036; 83721; 84443; 85025; 85660; 87086; 90732; 99284; A9270-GY; G0480

== ENCOUNTER 2017-09-25 18:17 | Emergency (ER) | payer MEDICAID ==
--- NOTE | 2017-09-25 18:41 | ED ---
Psychiatric Complaint - HPI Summary HPI Summary: This is [facility] documenting for attending Luz Fan MD. Pt BRENDAN is a 47 y/o M presents to ED w psychiatric complaint. Pt called the police who brought him to the ED because he was having SI: without a plan. Assoc Sx: Depressed, auditory hallucinations. Denies HI. Allev. factors: None. Pt reports that he does not have any local family that he associates with. SHx: EtOH use: had 3-5 beers today. He was admitted to a psychiatric hospital ~3 weeks ago for having SI. PMHx: "everything, you name it". - History Of Current Complaint Chief Complaint: EDMentalHealth Time Seen by Provider: 09/25/17 18:19 Hx Obtained From: Patient Onset/Duration: Gradual Onset, Lasting Weeks Timing: Constant Character: Depressed Alleviating Factor(s): Nothing Associated Signs And Symptoms: Positive: Confused Related History: Positive For: Prior Psychiatric Issues Has Suicidal: Reports: Thoughts. Denies: With A Plan, Demonstrates Gesture Has Homicidal: Denies: Thoughts - Allergies/Home Medications Allergies/Adverse Reactions: Allergies Allergy/AdvReac Type Severity Reaction Status Date / Time No Known Allergies Allergy Verified 08/25/17 18:52 PMH/Surg Hx/FS Hx/Imm Hx Endocrine/Hematology History: Reports: Other Endocrine/Hematological Disorders - hypoglycemia Denies: Hx Diabetes, Hx Thyroid Disease Cardiovascular History: Reports: Hx Congestive Heart Failure, Hx Hypertension Denies: Hx Pacemaker/ICD Respiratory History: Reports: Hx Asthma Denies: Hx Chronic Obstructive Pulmonary Disease (COPD) GI History: Denies: Hx Ulcer Musculoskeletal History: Reports: Hx Scoliosis Sensory History: Reports: Hx Contacts or Glasses Denies: Hx Legally Blind, Hx Deafness, Hx Hearing Aid Opthamlomology History: Reports: Hx Contacts or Glasses Denies: Hx Legally Blind Psychiatric History: Reports: Hx Depression, Hx Panic Disorder, Hx Inpatient Treatment, Hx of Violent Episodes Against Others, Hx Substance Abuse, Other Psychiatric Issues/Disorders - adjustment disorder Denies: Hx Eating Disorder - Surgical History Surgery Procedure, Year, and Place: None Infectious Disease History: No Infectious Disease History: Denies: Hx Hepatitis, Hx Human Immunodeficiency Virus (HIV), Traveled Outside the US in Last 30 Days - Family History Known Family History: Positive: Unknown - Correction and "has not seen parents in a long time" Negative: Cardiac Disease Family History: The patient does not know his family Hx. - Social History Occupation: Employed Full-time Lives: With Family Alcohol Use: Daily Alcohol Amount: 2, 12 packs daily Hx Substance Use: No Substance Use Type: Reports: Cocaine, Marijuana Substance Use Comment - Amount & Last Used: last used cocaine 8 months ago, last used marijuana 2 weeks ago Hx Tobacco Use: No Smoking Status (MU): Never Smoked Tobacco Review of Systems Negative: Fever Positive: Depressed, Other - POS: SI, auditory hallucinations. NEG: HI. All Other Systems Reviewed And Are Negative: Yes Physical Exam - Summary Physical Exam Summary: GENERAL: Patient is a well developed and nourished M who is lying comfortable in the stretcher. Patient is not in any acute respiratory distress. HEAD AND FACE: Normocephalic EYES: PERRLA, EOMI x 2. EARS: Hearing grossly intact. MOUTH: Oropharynx within normal limits. NECK: Supple, trachea is midline, no adenopathy, no JVD, no carotid bruit. CHEST: Symmetric, no tenderness at palpation LUNGS: Clear to auscultation bilaterally. No wheezing or crackles. CVS: Regular rate and rhythm, S1 and S2 present, no murmurs or gallops appreciated. ABDOMEN: Soft, non-tender. Bowel sounds are normal. No abdominal abnormal pulsations. EXTREMITIES: Full ROM in all major joints, no edema, no cyanosis or clubbing. NEURO: Alert and oriented x 3. No acute neurological deficits. Speech is normal and follows commands. SKIN: Dry and warm Psych: Pt is noticeably sad, auditory hallucinations, SI. Denies HI. Triage Information Reviewed: Yes Vital Signs On Initial Exam: Initial Vitals Temp Pulse Resp BP Pulse Ox 98.3 F 90 16 180/118 99 09/25/17 18:25 09/25/17 18:25 09/25/17 18:25 09/25/17 18:25 09/25/17 18:25 Vital Signs Reviewed: Yes Diagnostics - Vital Signs Vital Signs Temp Pulse Resp BP Pulse Ox 09/25/17 18:25 98.3 F 90 16 180/118 99 - Laboratory Result Diagrams: 09/25/17 19:08 09/25/17 19:08 Lab Statement: Any lab studies that have been ordered have been reviewed, and results considered in the medical decision making process. Course/Dx - Course Course Of Treatment: 47-year-old male who is presenting to the emergency room with suicidal ideation. Patient's blood alcohol level was found to be 327. Patient is currently on a one-on-one watch will be signed out to Dr. Mann pending mental health evaluation. - Differential Dx/Clinical Impression Provider Diagnosis: Psychiatric disorder Discharge - Sign-Out/Discharge Documenting (check all that apply): Sign-Out Patient Signing out patient TO: Adelia Mann Receiving patient FROM: Luz Fan - Discharge Plan Referrals: Keely Kwan MD [Primary Care Provider] -
[2017-09-25 19:22] LABS: ABS Basophils 0 10^3/ul (0-0.2); ABS Eosinophils 0 10^3/ul (0-0.6); ABS Lymphocytes 1.4 10^3/ul (1.0-4.8); ABS Monocytes 0.3 10^3/ul (0-0.8); ABS Neutrophils 2.2 10^3/ul (1.5-7.7); ABS Nucleated RBC 0 10^3/ul; Eosinophil % 0.1 % (0-6); Hematocrit 47 % (42-52); Hemoglobin 16.5 g/dl (14.0-18.0); Lymphocyte % 35.8 % (25-47); Mean Corpuscular HGB Conc 35 g/dl (31-36); Mean Corpuscular Hemoglobin 29 pg (27-31); Mean Corpuscular Volume 84 fL (80-94); Mean Platelet Volume 7.3 um3 (7.4-10.4); Nucleated Red Blood Cells % 0.2; Platelet Count 203 10^3/ul (150-450); Red Blood Count 5.62 10^6/ul (4.00-5.40); Red Cell Distribution Width 15 % (10.5-15); White Blood Count 3.9 10^3/ul (3.5-10.8)
[2017-09-25 19:35] LABS: EGFR Non-African American 68.3 (>60)
[2017-09-25 19:35] LABS: Urine Appearance Cloudy; Urine Blood 2+ (Negative); Urine Color Yellow; Urine Ketones Negative (Negative); Urine Protein 3+(>=500 mg/dL) (Negative); Urine Red Blood Cell Trace(0-2/hpf) (Absent); Urine Specific Gravity 1.023 (1.010-1.030); Urine Urobilinogen Negative (Negative); Urine White Blood Cell Trace(0-5/hpf) (Absent)
[2017-09-25] MEDS ORDERED: LORazepam TAB(*) 1 MG PO ONE (20:41)
[2017-09-25] MEDS ORDERED: LORazepam TAB(*) 0.5 MG ONE (20:43)
[2017-09-26] MEDS ORDERED: Ibuprofen TAB* 800 MG PO ONE (02:05)
[2017-09-26] MEDS ORDERED: Carvedilol TAB* 25 MG PO ONE (05:20)
[2017-09-26] MEDS ORDERED: amLODIPine TAB* 5 MG PO ONE (05:20)
[2017-09-26] MEDS ORDERED: LORazepam TAB(*) 1 MG PO ONE (05:53)
[2017-09-26] MEDS ORDERED: LORazepam TAB(*) 1 MG ONE (05:55)
--- NOTE | 2017-09-26 06:41 | ED ---
Progress - Progress Note Progress Note: This is kelsey Forman documenting for attending Dr. Adelia Mann MD. Patient was signed out to Dr. Adelia Mann. Course/Dx - Course Course Of Treatment: 47-year-old male who is presenting to the emergency room with suicidal ideation. Patient's blood alcohol level was found to be 327. Patient is currently on a one-on-one watch will be signed out to Dr. Mann pending mental health evaluation. Post MHE, patient care was discussed with Dr. Thakur who recommends patient be discharged with a diagnosis of alcoholism. Patient is to follow up with [facility] and [facility] [place]. Pt is agreeable with this plan. - Diagnoses Provider Diagnoses: Alcoholism - Provider Notifications Discussed Care Of Patient With: Colby Thakur Time Discussed With Above Provider: 06:35 Instructed by Provider To: Other - Recommends discharging patient. Discharge - Sign-Out/Discharge Documenting (check all that apply): Patient Departure - DISCHARGE - Discharge Plan Condition: Stable Disposition: HOME Patient Education Materials: Alcohol Intoxication (ED) Referrals: Keely Kwan MD [Primary Care Provider] - [facility] [Outside] [facility] [Outside] Additional Instructions: FOLLOW UP WITH [facility] [place]. RETURN TO ED FOR ANY NEW OR WORSENING SYMPTOMS.
[2017-09-26 07:15] VITALS: BP 144/103
--- NOTE | 2017-09-26 07:39 | ED ---
Progress - Progress Note Progress Note: This is kelsey [facility] documenting for attending Sary Malone M.D. Pt received in sign out from Dr. Mann on 09/26/17 0700, pending discharge per Dr. Thakur for alcohol abuse and depression, after pt was brought in by police after calling police because he felt suicidal after drinking alcohol. Pt is seen in the Flex unit, pending discharge. This patient is a 47 year old M who denies any concerns, medical complaints including CP, SOB, abd pain, and dizziness. Pt endorses his outpatient physician is Dr. Quinteros, with which he endorses a possible appointment today. Physical exam: Appearance: Well-appearing, moderate pain distress due to ZAZUETA, well-nourished, hypertensive, not tremulous, no sign of withdrawal Skin: Warm, color reflects adequate perfusion, dry Head: Normal Head/Face inspection, atraumatic Eyes: Conjunctiva clear ENT: Normal inspection Neck: Supple, no nodes, no JVD Respiratory: Lungs clear, normal breath sounds, no respiratory distress Cardio: RRR, No murmur, pulses normal, brisk capillary refill Abdomen: Soft, non-tender Bowel sounds: Present Musculoskeletal: Strength Intact/ROM intact, no calf tenderness, no edema. Psychological: Normal Neuro: Alert, muscle tone normal, no focal deficit - Consult/PCP Time Called: 04:00 Course/Dx - Course Course Of Treatment: 47-year-old male who is presenting to the emergency room with suicidal ideation. Patient's blood alcohol level was found to be 327. Patient is currently on a one-on-one watch will be signed out to Dr. Mann pending mental health evaluation. Post MHE, patient care was discussed with Dr. Thakur per Jacki, DOMINIC who recommends patient be discharged with a diagnosis of alcoholism. Patient is to follow up with [facility] and [facility] [place]. Pt is agreeable with this plan. - Diagnoses Provider Diagnoses: Alcoholism, Depressive disorder, Hypertension, poor control - Provider Notifications Discussed Care Of Patient With: Colby Thakur Time Discussed With Above Provider: 06:35 Instructed by Provider To: Other - Recommends discharging patient. Discharge - Sign-Out/Discharge Documenting (check all that apply): Patient Departure - discharge - Discharge Plan Condition: Stable Disposition: HOME Patient Education Materials: Lorazepam (By mouth), Alcohol Intoxication (ED) Referrals: [facility] [Outside] [facility] [Outside] Keely Kwan MD [Primary Care Provider] - 1 Day Additional Instructions: Per completion of a mental health evaluation, you are cleared for release and do not require inpatient psychiatric hospitalization at this time. Please go to nearest emergency room or call 911 if safety concerns arise or condition worsens. IMPORTANT PHONE NUMBERS: [facility] Behavior[facility] Services Unit: [facility] Emergency Room Flex Unit: Suicide Prevention and Crisis Services: The Chat: Text (free and confidential online crisis service sponsored by [facility] Suicide Prevention, available Saturday-Saturday 6pm 9pm) National Suicide Prevention Lifeline: (005) 115-GQJO (3027) National Crisis Text Line: Text HELLO to 832596 [facility]: [facility] Outreach for Older Adults: [facility] Mental Health Association: [employer]: Alcoholics Anonymous: Narcotics Anonymous: [facility] [place] [facility]: [facility] ([facility]) Outpatient Services: [place] [facility]: ([phone] [phone] Alcohol & Drug Crisis: [facility] Anthony Cox: Department of [employer]: [place] [facility]: [facility] Action: [place] [employer]: Neighborhood Housing Services: [employer]: [employer] [place] [facility]: Loaves [employer] Fishes (free daily meals): [facility] Food Pantry: [facility] Police: [facility] Sheriff: [place] [employer] Department: OUTPATIENT SERVICES You have been referred to [facility]. It is our recommendation that you call [facility] to secure an appointment on their next business day. Adults can schedule their first appointment by phone or in person during walk-in hours. Walk-in hours occur Saturday - Saturday until 2:30pm. If you require further assistance connecting to outpatient providers, please contact our Mental Health Unit at . No changes or adjustments were made to your medication regimen during this evaluation. Continue medications as prescribed by your outpatient providers. [address] [id number] ALCOHOL AND DRUG Substance abuse evaluation recommended. Please continue with your previously scheduled appointment as you indicated during your evaluation. The [facility] [place] provides information, education, counseling and referral services for [facility] residents and organizations. Should you feel that you are in need of detoxification and rehabilitation, please contact their office. Walk-in evaluations are available on a first-come, first-served basis. The current walk- in hours are Saturday 8:30am-6:00pm and Saturday 8:30am-11:00am. [facility] [place] [address] [id number] - Billing Disposition and Condition Condition: STABLE Disposition: Home
== END 2017-09-26 07:30 | disposition home or self-care (01) ==
LOC: ED 18:17
DX: F10.20 Alcohol dependence, uncomplicated (principal); I10 Essential (primary) hypertension; F32.9 Major depressive disorder, single episode, unspecified
CPT/HCPCS: 36415; 80053; 80307; 80320; 80329; 81003; 81015; 84443; 85025; 87086; 99284; A9270-GY; G0480

== ENCOUNTER 2017-09-28 00:12 | Emergency (ER) | payer MEDICAID ==
[2017-09-28] MEDS ORDERED: diPHENhydraMINE PO* 50 MG PO ONE (01:02)
[2017-09-28] MEDS ORDERED: Haloperidol TAB* 5 MG PO ONE (01:02)
[2017-09-28] MEDS ORDERED: LORazepam TAB(*) 1 MG PO ONE (01:02)
--- NOTE | 2017-09-28 01:13 | ED ---
Substance Abuse/Use - HPI Summary HPI Summary: This is scrmelye Volodymyr Forman documenting for attending Dr. Adelia Mann MD. A 47 y/o male NEY presents to ED s/p abnormal behavior and ETOH drinking. As per triage, pt drinking tonight was found wandering on tracks stating that he wasnt able to take care of himself. pt is alert and cooperative. According to the patient, he is going backwards in life at this point. Pt denies any dugs , SI or HI., however, he noted that he has had ETOH tonight. He additionally stated that he drinks every day. The patient stated that he thinks he was at [facility] [place] last night. Patient is on no psychiatric medication, not yet, but he stated that he goes regularly to the [facility] [place] who will shortly put his file up for review to determine his course of treatment. Patient noted that he cannot sleep, relax or fucking think. The patient wants medication to help him sleep. - History Of Current Complaint Chief Complaint: EDSubstanceAbuse Stated Complaint: MHE Time Seen by Provider: 09/28/17 00:23 Hx Obtained From: Patient Onset/Duration of Drug/ETOH Abuse: Hours Ingestion History: Type/Name Of Drug - ETOH Overdose Characteristics: Oral Timing Of Abuse: Daily Severity Currently: None Aggravating Factor(s): Nothing Alleviating Factor(s): Nothing Associated Signs And Symptoms: Sleep Disturbance - Allergies/Home Medications Allergies/Adverse Reactions: Allergies Allergy/AdvReac Type Severity Reaction Status Date / Time No Known Allergies Allergy Verified 08/25/17 18:52 PMH/Surg Hx/FS Hx/Imm Hx Endocrine/Hematology History: Reports: Other Endocrine/Hematological Disorders - hypoglycemia Denies: Hx Diabetes, Hx Thyroid Disease Cardiovascular History: Reports: Hx Congestive Heart Failure, Hx Hypertension Denies: Hx Pacemaker/ICD Respiratory History: Reports: Hx Asthma Denies: Hx Chronic Obstructive Pulmonary Disease (COPD) GI History: Denies: Hx Ulcer Musculoskeletal History: Reports: Hx Scoliosis Sensory History: Reports: Hx Contacts or Glasses Denies: Hx Legally Blind, Hx Deafness, Hx Hearing Aid Opthamlomology History: Reports: Hx Contacts or Glasses Denies: Hx Legally Blind Psychiatric History: Reports: Hx Depression, Hx Panic Disorder, Hx Inpatient Treatment, Hx of Violent Episodes Against Others, Hx Substance Abuse, Other Psychiatric Issues/Disorders - adjustment disorder Denies: Hx Eating Disorder - Surgical History Surgery Procedure, Year, and Place: None Infectious Disease History: No Infectious Disease History: Denies: Hx Hepatitis, Hx Human Immunodeficiency Virus (HIV), Traveled Outside the US in Last 30 Days - Family History Known Family History: Positive: Unknown - Detention and "has not seen parents in a long time" Negative: Cardiac Disease Family History: The patient does not know his family Hx. - Social History Alcohol Use: Daily Alcohol Amount: 2, 12 packs daily Hx Substance Use: No Substance Use Type: Reports: Cocaine, Marijuana Substance Use Comment - Amount & Last Used: last used cocaine 8 months ago, last used marijuana 2 weeks ago Hx Tobacco Use: No Smoking Status (MU): Never Smoked Tobacco Review of Systems Negative: Fever Neurological: Other - POSITIVE: Sleep issues. Psychological: Other - NEGATIVE: SI, HI. All Other Systems Reviewed And Are Negative: Yes Physical Exam - Summary Physical Exam Summary: VITAL SIGNS: Reviewed. GENERAL: Patient is a well-developed and nourished male who is lying comfortable in the stretcher. Patient is not in any acute respiratory distress. Patient is stressed out and drinking everyday. HEAD AND FACE: No signs of trauma. No ecchymosis, hematomas or skull depressions. No sinus tenderness. EYES: PERRLA, EOMI x 2, No injected conjunctiva, no nystagmus. EARS: Hearing grossly intact. Ear canals and tympanic membranes are within normal limits. MOUTH: Oropharynx within normal limits. NECK: Supple, trachea is midline, no adenopathy, no JVD, no carotid bruit, no c- spine tenderness, neck with full ROM. CHEST: Symmetric, no tenderness at palpation LUNGS: Clear to auscultation bilaterally. No wheezing or crackles. CVS: Regular rate and rhythm, S1 and S2 present, no murmurs or gallops appreciated. ABDOMEN: Soft, non-tender. No signs of distention. No rebound no guarding, and no masses palpated. Bowel sounds are normal. EXTREMITIES: FROM in all major joints, no edema, no cyanosis or clubbing. NEURO: Alert and oriented x 3. No acute neurological deficits. Speech is normal and follows commands. SKIN: Dry and warm PSYCH: No SI or HI. Triage Information Reviewed: Yes Vital Signs On Initial Exam: Initial Vitals Temp Pulse Resp BP Pulse Ox 98.5 F 87 19 132/108 94 09/28/17 00:15 09/28/17 00:15 09/28/17 00:15 09/28/17 00:15 09/28/17 00:15 Vital Signs Reviewed: Yes Diagnostics - Vital Signs Vital Signs Temp Pulse Resp BP Pulse Ox 09/28/17 00:15 98.5 F 87 19 132/108 94 - Laboratory Result Diagrams: 09/28/17 01:16 09/28/17 01:16 Lab Statement: Any lab studies that have been ordered have been reviewed, and results considered in the medical decision making process. Re-Evaluation - Re-Evaluation n Re-Evaluation Time: 08:31 Change: Improved Comment: Patient has returned to functioning capacity. He is alert, oriented, and apologetic. Course/Dx - Course Course Of Treatment: A 47 y/o male NEY presents to ED s/p abnormal behavior and ETOH drinking. No laboratory scans were done. In the ED course, the patient recieved Haldol, Ativan and Benadryl. Patient is signed out to Dr. Nunez via Dr. Mann, pending sober and reevaluation with a diagnosis of alcohol intoxication. - Diagnoses Provider Diagnoses: Alcohol intoxication Discharge - Sign-Out/Discharge Signing out patient TO: Phani Nunez Receiving patient FROM: Adelia Mann - Discharge Plan Condition: Improved Disposition: HOME Referrals: Keely Kwan MD [Primary Care Provider] - - Billing Disposition and Condition Condition: IMPROVED Disposition: Home
[2017-09-28 01:28] LABS: ABS Basophils 0 10^3/ul (0-0.2); ABS Eosinophils 0 10^3/ul (0-0.6); ABS Lymphocytes 1.6 10^3/ul (1.0-4.8); ABS Monocytes 0.3 10^3/ul (0-0.8); ABS Neutrophils 3.4 10^3/ul (1.5-7.7); ABS Nucleated RBC 0 10^3/ul; Eosinophil % 0.2 % (0-6); Hematocrit 46 % (42-52); Hemoglobin 16.2 g/dl (14.0-18.0); Lymphocyte % 30.4 % (25-47); Mean Corpuscular HGB Conc 35 g/dl (31-36); Mean Corpuscular Hemoglobin 29 pg (27-31); Mean Corpuscular Volume 83 fL (80-94); Mean Platelet Volume 7.4 um3 (7.4-10.4); Nucleated Red Blood Cells % 0.5; Platelet Count 194 10^3/ul (150-450); Red Blood Count 5.53 10^6/ul (4.00-5.40); Red Cell Distribution Width 15 % (10.5-15); White Blood Count 5.4 10^3/ul (3.5-10.8)
[2017-09-28 01:46] LABS: EGFR Non-African American 85.3 (>60)
[2017-09-28 04:02] LABS: Urine Appearance Clear; Urine Blood 1+ (Negative); Urine Color Yellow; Urine Ketones Negative (Negative); Urine Protein 3+(>=500 mg/dL) (Negative); Urine Red Blood Cell Trace(0-2/hpf) (Absent); Urine Specific Gravity 1.004 (1.010-1.030); Urine Urobilinogen Negative (Negative); Urine White Blood Cell Absent (Absent)
--- NOTE | 2017-09-28 07:13 | ED ---
Progress - Progress Note Progress Note: This is scribe Cristi Manuel documenting for attending Phani Nunez MD. A 47 y/o male NEY presents to ED s/p abnormal behavior and ETOH drinking. He sobered over the course of the night and now demonstrates functional capacity as evidenced by clear speech, steady gait and rational thinking. He requested a cab for a safe ride home. Re-Evaluation - Re-Evaluation n Re-Evaluation Time: 08:31 Change: Improved Comment: Patient has returned to functioning capacity. He is alert, oriented, and apologetic. Course/Dx - Course Course Of Treatment: Patient sobered in the ER and had no psychiatric concerns. He was stable for discharge with return of functional capacity. - Diagnoses Provider Diagnoses: Alcohol intoxication Discharge - Sign-Out/Discharge Documenting (check all that apply): Receiving Sign-Out Receiving patient FROM: Adelia Mann - Pending sobriety - Discharge Plan Condition: Improved Disposition: HOME Referrals: Keely Kwan MD [Primary Care Provider] - - Billing Disposition and Condition Condition: IMPROVED Disposition: Home
[2017-09-28 08:57] VITALS: BP 182/99
== END 2017-09-28 08:56 | disposition home or self-care (01) ==
LOC: ED 00:12
DX: F10.129 Alcohol abuse with intoxication, unspecified (principal); G47.9 Sleep disorder, unspecified
CPT/HCPCS: 36415; 80053; 80307; 80320; 80329; 81003; 81015; 84443; 85025; 99285; A9270-GY; G0480

== ENCOUNTER 2017-09-29 18:49 | Emergency (ER) | payer MEDICAID ==
[2017-09-29] MEDS ORDERED: NS 0.9% 1000 ML* 1,000 ML IV ONE (19:01)
--- NOTE | 2017-09-29 19:19 | ED ---
Back Pain - HPI Summary HPI Summary: Patient complains of bilateral lower back pain 2 days, stating that he cant walk upright today. Patient admits to drinking 6 pack of beer today, last beer at 4 PM. Patient history variable, first states no radiation of pain, then states radiation of pain down left leg only, then states radiation of pain down right leg. Denies trauma, fever, cough, sore throat, CP, SOB, N/V/V abdominal pain, change in urine or BM. Medical history per medical records is EtOH abuse , CHF, HTN. Patient denies medication issues mentioned in triage note. - History of Current Complaint Chief Complaint: EDWeakness Stated Complaint: OVER MEDICATED Time Seen by Provider: 09/29/17 18:54 Hx Obtained From: Patient Onset/Duration: Gradual Onset Onset/Duration: Started Days Ago Timing: Constant Back Pain Location: Is Discrete @, Radiates To Severity Initially: Severe Severity Currently: Severe Pain Intensity: 8 Pain Scale Used: 0-10 Numeric Character: Aching Aggravating Symptom(s): Movement, Bending, Walking Alleviating Symptom(s): Position Associated Signs And Symptoms: Positive: Negative - Allergies/Home Medications Allergies/Adverse Reactions: Allergies Allergy/AdvReac Type Severity Reaction Status Date / Time No Known Allergies Allergy Verified 08/25/17 18:52 PMH/Surg Hx/FS Hx/Imm Hx Endocrine/Hematology History: Reports: Other Endocrine/Hematological Disorders - hypoglycemia Denies: Hx Anticoagulant Therapy, Hx Diabetes, Hx Thyroid Disease Cardiovascular History: Reports: Hx Congestive Heart Failure, Hx Hypertension Denies: Hx Pacemaker/ICD Respiratory History: Reports: Hx Asthma Denies: Hx Chronic Obstructive Pulmonary Disease (COPD) GI History: Denies: Hx Ulcer Musculoskeletal History: Reports: Hx Scoliosis Sensory History: Reports: Hx Contacts or Glasses Denies: Hx Legally Blind, Hx Deafness, Hx Hearing Aid Opthamlomology History: Reports: Hx Contacts or Glasses Denies: Hx Legally Blind Psychiatric History: Reports: Hx Depression, Hx Panic Disorder, Hx Inpatient Treatment, Hx of Violent Episodes Against Others, Hx Substance Abuse, Other Psychiatric Issues/Disorders - adjustment disorder Denies: Hx Eating Disorder - Surgical History Surgery Procedure, Year, and Place: None Infectious Disease History: No Infectious Disease History: Denies: Hx Hepatitis, Hx Human Immunodeficiency Virus (HIV), Traveled Outside the [place] in Last 30 Days - Family History Known Family History: Positive: Unknown - Detention and "has not seen parents in a long time" Negative: Cardiac Disease Family History: The patient does not know his family Hx. - Social History Alcohol Use: Daily Alcohol Amount: 2, 12 packs daily Hx Substance Use: No Substance Use Type: Reports: Cocaine, Marijuana Substance Use Comment - Amount & Last Used: last used cocaine 8 months ago, last used marijuana 2 weeks ago Hx Tobacco Use: No Smoking Status (MU): Never Smoked Tobacco Review of Systems Constitutional: Negative Eyes: Negative ENT: Negative Cardiovascular: Negative Respiratory: Negative Gastrointestinal: Negative Genitourinary: Negative Musculoskeletal: Other Skin: Negative Neurological: Negative Psychological: Normal All Other Systems Reviewed And Are Negative: Yes Physical Exam - Summary Physical Exam Summary: No ecchymosis, erythema, mass, extra warmth, swelling or deformity noted to bilateral lower back. PMS intact distally on bilateral lower extremities. Patient able to flex and extend bilateral feet, ankles, knees, hips. Triage Information Reviewed: Yes Vital Signs On Initial Exam: Initial Vitals Temp Pulse Resp BP Pulse Ox 99.4 F 102 21 171/112 94 09/29/17 18:51 09/29/17 18:51 09/29/17 18:51 09/29/17 18:51 09/29/17 18:51 Vital Signs Reviewed: Yes Appearance: Positive: Well-Appearing Skin: Positive: Warm Head/Face: Positive: Normal Head/Face Inspection Eyes: Positive: Normal Neck: Positive: Supple Respiratory/Lung Sounds: Positive: Clear to Auscultation Cardiovascular: Positive: Normal Abdomen Description: Positive: Nontender Musculoskeletal: Positive: Normal Neurological: Positive: Normal Psychiatric: Positive: Normal AVPU Assessment: Alert - [place] Coma Scale Best Eye Response: 4 - Spontaneous Best Motor Response: 6 - Obeys Commands Best Verbal Response: 5 - Oriented Coma Scale Total: 15 Diagnostics - Vital Signs Vital Signs Temp Pulse Resp BP Pulse Ox 09/29/17 18:51 99.4 F 102 21 171/112 94 - Laboratory Result Diagrams: 09/29/17 19:03 09/29/17 21:03 Lab Statement: Any lab studies that have been ordered have been reviewed, and results considered in the medical decision making process. - Radiology l spine Xray Interpretation: No Acute Changes Radiology Interpretation Completed By: ED Physician Back Pain Course/Dx - Course Course Of Treatment: Patient complains of bilateral lower back pain 2 days, stating that he cant walk upright today. Patient admits to drinking 6 pack of beer today, last beer at 4 PM. Patient history variable, first states no radiation of pain, then states radiation of pain down left leg only, then states radiation of pain down right leg. Denies trauma, fever, cough, sore throat, CP, SOB, N/V/V abdominal pain, change in urine or BM. Medical history per medical records is EtOH abuse, CHF, HTN. Patient denies medication issues mentioned in triage note. Physical exam:No ecchymosis, erythema, mass, extra warmth, swelling or deformity noted to bilateral lower back. PMS intact distally on bilateral lower extremities. Patient able to flex and extend bilateral feet, ankles, knees, hips. Patient stated in initial history that he was unable to stand upright. Patient was observed standing upright to urinate at bedside. Vital signs within normal limits. Labs unremarkable. X-ray unremarkable. EtOH level 369. OBS. 02:17 patient able to walk upright and normally. States he feels much better. Vital signs within normal limits. Panic patient responding coherently and appropriately. Clinic sober. Discussed pt with Dr Mann who recommended d/c home at this time. - Diagnoses Provider Diagnoses: Alcohol intoxication, Back pain Discharge - Sign-Out/Discharge Documenting (check all that apply): Patient Departure - Discharge Plan Condition: Stable Disposition: HOME Prescriptions: Cyclobenzaprine TAB* [Flexeril 10 MG TAB*] 10 mg PO TID PRN 2 Days #6 tab PRN Reason: Spasms Patient Education Materials: Muscle Spasm (ED) Referrals: Keely Kwan MD [Primary Care Provider] - Additional Instructions: Follow-up with primary care. Return to the ED for any new or worsening symptoms - Billing Disposition and Condition Condition: STABLE Disposition: Home
[2017-09-29 19:27] LABS: ABS Basophils 0 10^3/ul (0-0.2); ABS Eosinophils 0 10^3/ul (0-0.6); ABS Lymphocytes 1.7 10^3/ul (1.0-4.8); ABS Monocytes 0.3 10^3/ul (0-0.8); ABS Neutrophils 3.2 10^3/ul (1.5-7.7); ABS Nucleated RBC 0 10^3/ul; Eosinophil % 0.2 % (0-6); Hematocrit 46 % (42-52); Hemoglobin 16.1 g/dl (14.0-18.0); Lymphocyte % 32.7 % (25-47); Mean Corpuscular HGB Conc 35 g/dl (31-36); Mean Corpuscular Hemoglobin 29 pg (27-31); Mean Corpuscular Volume 83 fL (80-94); Mean Platelet Volume 7.5 um3 (7.4-10.4); Nucleated Red Blood Cells % 0.2; Platelet Count 194 10^3/ul (150-450); Red Blood Count 5.49 10^6/ul (4.00-5.40); Red Cell Distribution Width 15 % (10.5-15); White Blood Count 5.3 10^3/ul (3.5-10.8)
[2017-09-29 19:37] LABS: EGFR Non-African American 52.6 (>60)
[2017-09-29 22:21] LABS: Urine Appearance Cloudy; Urine Blood 1+ (Negative); Urine Color Yellow; Urine Ketones Negative (Negative); Urine Protein 3+(>=500 mg/dL) (Negative); Urine Red Blood Cell Trace(0-2/hpf) (Absent); Urine Specific Gravity 1.011 (1.010-1.030); Urine Urobilinogen Negative (Negative); Urine White Blood Cell Absent (Absent)
[2017-09-30 02:33] VITALS: BP 162/110
--- NOTE | 2017-09-30 07:16 | RAD ---
INDICATION: Low back pain COMPARISON: None. TECHNIQUE: 6 views of the lumbar spine were obtained. FINDINGS: The vertebra are in normal alignment. No fracture is seen. There is mild loss of intervertebral disc height at the lower thoracic spine and lower lumbar spine. IMPRESSION: Mild degenerative disc disease.
== END 2017-09-30 02:31 | disposition home or self-care (01) ==
LOC: ED 18:49
DX: M54.5 Low back pain (principal); F10.129 Alcohol abuse with intoxication, unspecified; Y90.8 Blood alcohol level of 240 mg/100 ml or more; I50.9 Heart failure, unspecified; I10 Essential (primary) hypertension; J45.909 Unspecified asthma, uncomplicated; F17.210 Nicotine dependence, cigarettes, uncomplicated
CPT/HCPCS: 36415; 72110; 80053; 80320; 81003; 81015; 83605; 85025; 86140; 96360; 99282; G0480

== ENCOUNTER 2017-10-04 22:24 | Emergency (ER) | payer MEDICAID ==
[2017-10-04] MEDS ORDERED: diPHENhydraMINE PO* 50 MG PO ONE (23:29)
[2017-10-04] MEDS ORDERED: LORazepam INJ* 2 MG/ML 1 ML VIAL IV ONE (23:29)
--- NOTE | 2017-10-04 23:36 | ED ---
Altered Mental Status - HPI Summary HPI Summary: This is scribe Dary Dhillon documenting for attending Dr. Ramiro Philip MD. Patient is a 47 year old male presenting to the ED with a chief complaint of severe depression. He is unsure of how long his depression has been going on, but knows he is presently very depressed. He abused Percocet today, as well as methamphetamine. He works every chance he gets, but is technically unemployed, and lives with a friend. His roommate called someone to bring him to the hospital, and they told him he needed to get out of the house, and brought him to [facility], where he says he has been before. He is an alcoholic and has supposedly not slept in 4 days. The patient requested something to help him sleep. Pt has a hx of high blood pressure, AMS. I, Dr. Philip, personally performed the services described in this documentation as scribed in my presence and it is both accurate and complete. - History Of Current Complaint Chief Complaint: EDSubstanceAbuse Stated Complaint: 2208 Time Seen by Provider: 10/04/17 23:22 Hx Obtained From: Patient Onset/Duration: Unknown Timing: Lasting Weeks Severity Currently: Severe - Allergies/Home Medications Allergies/Adverse Reactions: Allergies Allergy/AdvReac Type Severity Reaction Status Date / Time No Known Allergies Allergy Verified 08/25/17 18:52 PMH/Surg Hx/FS Hx/Imm Hx Previously Healthy: No - Hx of substance abuse Endocrine/Hematology History: Reports: Other Endocrine/Hematological Disorders - hypoglycemia Denies: Hx Anticoagulant Therapy, Hx Diabetes, Hx Thyroid Disease Cardiovascular History: Reports: Hx Congestive Heart Failure, Hx Hypertension Denies: Hx Pacemaker/ICD Respiratory History: Reports: Hx Asthma Denies: Hx Chronic Obstructive Pulmonary Disease (COPD) GI History: Denies: Hx Ulcer Musculoskeletal History: Reports: Hx Scoliosis Sensory History: Reports: Hx Contacts or Glasses Denies: Hx Legally Blind, Hx Deafness, Hx Hearing Aid Opthamlomology History: Reports: Hx Contacts or Glasses Denies: Hx Legally Blind Psychiatric History: Reports: Hx Depression, Hx Panic Disorder, Hx Inpatient Treatment, Hx of Violent Episodes Against Others, Hx Substance Abuse, Other Psychiatric Issues/Disorders - adjustment disorder Denies: Hx Eating Disorder - Surgical History Surgery Procedure, Year, and Place: None - Immunization History Immunizations Up to Date: Yes Infectious Disease History: No Infectious Disease History: Denies: Hx Hepatitis, Hx Human Immunodeficiency Virus (HIV), Traveled Outside the [place] in Last 30 Days - Family History Known Family History: Positive: Unknown - Snf and "has not seen parents in a long time" Negative: Cardiac Disease Family History: The patient does not know his family Hx. - Social History Alcohol Use: Daily Alcohol Amount: 2, 12 packs daily Hx Substance Use: No Substance Use Type: Reports: Cocaine, Marijuana Substance Use Comment - Amount & Last Used: last used cocaine 8 months ago, last used marijuana 2 weeks ago Hx Tobacco Use: No Smoking Status (MU): Never Smoked Tobacco Physical Exam Vital Signs On Initial Exam: Initial Vitals Temp Pulse Resp BP Pulse Ox 97.8 F 84 16 173/116 96 10/04/17 22:25 10/04/17 22:25 10/04/17 22:25 10/04/17 22:25 10/04/17 22:25 Diagnostics - Vital Signs Vital Signs Temp Pulse Resp BP Pulse Ox 10/04/17 22:25 97.8 F 84 16 173/116 96 - Laboratory Lab Statement: Any lab studies that have been ordered have been reviewed, and results considered in the medical decision making process. Discharge - Discharge Plan Referrals: Keely Kwan MD [Primary Care Provider] -
--- NOTE | 2017-10-04 23:43 | ED ---
Substance Abuse/Use - HPI Summary HPI Summary: This is scribe Dary Dhillon documenting for attending Dr. Ramiro Philip MD. Patient is a 47 year old male presenting to the ED with a chief complaint of severe depression. He is unsure of how long his depression has been going on, but knows he is presently very depressed. He abused Percocet today, as well as methamphetamine. He works every chance he gets, but is technically unemployed, and lives with a friend. His roommate called someone to bring him to the hospital, and they told him he needed to get out of the house, and brought him to [facility], where he says he has been before. He is an alcoholic and has supposedly not slept in 4 days. The patient requested something to help him sleep. Pt has a hx of high blood pressure, AMS. I, Dr. Philip, personally performed the services described in this documentation as scribed in my presence and it is both accurate and complete. - History Of Current Complaint Chief Complaint: EDSubstanceAbuse Stated Complaint: 2208 Time Seen by Provider: 10/04/17 23:22 Hx Obtained From: Patient Onset/Duration of Drug/ETOH Abuse: Weeks Ingestion History: Type/Name Of Drug - percocet, methamphetamine, EtOH Timing Of Abuse: Daily Severity Currently: Severe Character: Depressed Aggravating Factor(s): Recent Stress, Medication Non-compliance Alleviating Factor(s): Nothing Associated Signs And Symptoms: Sleep Disturbance - lack of sleep, Altered Mental Status - depression - Allergies/Home Medications Allergies/Adverse Reactions: Allergies Allergy/AdvReac Type Severity Reaction Status Date / Time No Known Allergies Allergy Verified 08/25/17 18:52 Home Medications: Home Medications Naltrexone TAB* 50 mg PO DAILY 10/05/17 [History Confirmed 10/05/17] PMH/Surg Hx/FS Hx/Imm Hx Previously Healthy: No - Hx of alcoholism Endocrine/Hematology History: Reports: Other Endocrine/Hematological Disorders - hypoglycemia Denies: Hx Anticoagulant Therapy, Hx Diabetes, Hx Thyroid Disease Cardiovascular History: Reports: Hx Congestive Heart Failure, Hx Hypertension Denies: Hx Pacemaker/ICD Respiratory History: Reports: Hx Asthma Denies: Hx Chronic Obstructive Pulmonary Disease (COPD) GI History: Denies: Hx Ulcer Musculoskeletal History: Reports: Hx Scoliosis Sensory History: Reports: Hx Contacts or Glasses Denies: Hx Legally Blind, Hx Deafness, Hx Hearing Aid Opthamlomology History: Reports: Hx Contacts or Glasses Denies: Hx Legally Blind Psychiatric History: Reports: Hx Depression, Hx Panic Disorder, Hx Inpatient Treatment, Hx of Violent Episodes Against Others, Hx Substance Abuse, Other Psychiatric Issues/Disorders - adjustment disorder Denies: Hx Eating Disorder - Surgical History Surgery Procedure, Year, and Place: None - Immunization History Immunizations Up to Date: Yes Infectious Disease History: No Infectious Disease History: Denies: Hx Hepatitis, Hx Human Immunodeficiency Virus (HIV), Traveled Outside the [place] in Last 30 Days - Family History Known Family History: Negative: Cardiac Disease Family History: The patient does not know his family Hx. - Social History Occupation: Unemployed Lives: Dormitory/Roommates Alcohol Use: Daily Alcohol Amount: 2, 12 packs daily Hx Substance Use: No Substance Use Type: Reports: Cocaine, Marijuana Substance Use Comment - Amount & Last Used: last used cocaine 8 months ago, last used marijuana 2 weeks ago Hx Tobacco Use: No Smoking Status (MU): Never Smoked Tobacco Review of Systems Negative: Fever Neurological: Other - Not sleeping Positive: Depressed All Other Systems Reviewed And Are Negative: Yes Physical Exam - Summary Physical Exam Summary: Appearance: Well-appearing, Well-nourished, sitting in bed comfortable Skin: Warm, dry, no obvious rash Eyes: sclera anicteric, no conjunctival pallor ENT: mucous membranes moist Neck: deferred Respiratory: No signs of respiratory distress Cardiovascular: Appears well perfused, pulses are nml Abdomen: deferred Musculoskeletal: Moving all 4 extremities without obvious discomfort Neurological: Awake and alert, mentation is normal, speech is fluent and appropriate Psychiatric: Clearly depressed Triage Information Reviewed: Yes Vital Signs On Initial Exam: Initial Vitals Temp Pulse Resp BP Pulse Ox 97.8 F 84 16 173/116 96 10/04/17 22:25 10/04/17 22:25 10/04/17 22:25 10/04/17 22:25 10/04/17 22:25 Vital Signs Reviewed: Yes Diagnostics - Vital Signs Vital Signs Temp Pulse Resp BP Pulse Ox 10/04/17 22:25 97.8 F 84 16 173/116 96 - Laboratory Result Diagrams: 10/04/17 23:36 10/04/17 23:36 Lab Statement: Any lab studies that have been ordered have been reviewed, and results considered in the medical decision making process. Re-Evaluation - Re-Evaluation First Eval Re-Evaluation Time: 06:25 Comment: The patient is requesting discharge, he does not want to speak to the mental health staff here. However he came in heavily intoxicated with a very elevated blood alcohol level, and is unsteady on his feet, slow to respond, and clearly is not able to take care of himself at this time. He will need to stay here until he is more clinically sober. Course/Dx - Diagnoses Provider Diagnoses: Alcohol intoxication Discharge - Sign-Out/Discharge Documenting (check all that apply): Sign-Out Patient Signing out patient TO: Yovanny Llanos Receiving patient FROM: Ramiro Philip - Discharge Plan Condition: Good Referrals: Keely Kwan MD [Primary Care Provider] - - Billing Disposition and Condition Condition: GOOD
[2017-10-04 23:47] LABS: ABS Basophils 0 10^3/ul (0-0.2); ABS Eosinophils 0 10^3/ul (0-0.6); ABS Lymphocytes 1.5 10^3/ul (1.0-4.8); ABS Monocytes 0.2 10^3/ul (0-0.8); ABS Neutrophils 2.1 10^3/ul (1.5-7.7); ABS Nucleated RBC 0 10^3/ul; Eosinophil % 0.2 % (0-6); Hematocrit 44 % (42-52); Hemoglobin 15.3 g/dl (14.0-18.0); Lymphocyte % 38.8 % (25-47); Mean Corpuscular HGB Conc 35 g/dl (31-36); Mean Corpuscular Hemoglobin 29 pg (27-31); Mean Corpuscular Volume 83 fL (80-94); Mean Platelet Volume 6.8 um3 (7.4-10.4); Nucleated Red Blood Cells % 0.4; Platelet Count 139 10^3/ul (150-450); Red Blood Count 5.22 10^6/ul (4.00-5.40); Red Cell Distribution Width 15 % (10.5-15); White Blood Count 3.9 10^3/ul (3.5-10.8)
[2017-10-04] MEDS ORDERED: LORazepam TAB(*) 1 MG PO ONE (23:53)
[2017-10-05 00:03] LABS: EGFR Non-African American 85.3 (>60)
[2017-10-05 05:55] LABS: Urine Appearance Cloudy; Urine Blood 2+ (Negative); Urine Color Yellow; Urine Ketones Negative (Negative); Urine Protein 3+(>=500 mg/dL) (Negative); Urine Red Blood Cell Trace(0-2/hpf) (Absent); Urine Specific Gravity 1.019 (1.010-1.030); Urine Urobilinogen Negative (Negative); Urine White Blood Cell Trace(0-5/hpf) (Absent)
[2017-10-05] MEDS ORDERED: hydrOXYzine HCL TAB* 50 MG PO ONE (07:25)
[2017-10-05] MEDS ORDERED: Furosemide TAB* 20 MG PO ONE (15:58)
--- NOTE | 2017-10-05 15:59 | ED ---
Progress - Progress Note Progress Note: Patient is hemodynamically stable at this time. He is A&O x3. He is being assessed at this time and will be signed out to Dr. Philip upon shift change pending completion of the assessment and disposition. Re-Evaluation - Re-Evaluation First Eval Re-Evaluation Time: 06:25 Comment: The patient is requesting discharge, he does not want to speak to the mental health staff here. However he came in heavily intoxicated with a very elevated blood alcohol level, and is unsteady on his feet, slow to respond, and clearly is not able to take care of himself at this time. He will need to stay here until he is more clinically sober. Second Eval Re-Evaluation Time: 15:58 Change: Unchanged Comment: Discussed plan of care with the patient Course/Dx - Course Course Of Treatment: Patient is hemodynamically stable at this time. He is A&O x3. He is being assessed at this time and will be signed out to Dr. Philip upon shift change pending completion of the assessment and disposition. - Diagnoses Provider Diagnoses: Alcohol intoxication Discharge - Sign-Out/Discharge Documenting (check all that apply): Sign-Out Patient, Receiving Sign-Out Signing out patient TO: Ramiro Philip - Upon shift change pending MHE and dispo Receiving patient FROM: Ramiro Philip - Upon shift change pending MHE and dispo - Discharge Plan Condition: Good - Billing Disposition and Condition Condition: GOOD
[2017-10-05 19:11] VITALS: BP 148/92
--- NOTE | 2017-10-05 20:02 | ED ---
Progress - Progress Note Progress Note: The patient was a sign-out from Dr. Llanos at shift change pending disposition after mental health evaluation. Mental health packing house laborer Milagro Piedra notes that the patient is able to be discharged home to his girlfriend's house by taking the [employer] bus. He is diagnosed with alcohol intoxication, and will be sent home with information on alcohol abuse. Patient is agreeable with this plan. Re-Evaluation - Re-Evaluation First Eval Re-Evaluation Time: 06:25 Comment: The patient is requesting discharge, he does not want to speak to the mental health staff here. However he came in heavily intoxicated with a very elevated blood alcohol level, and is unsteady on his feet, slow to respond, and clearly is not able to take care of himself at this time. He will need to stay here until he is more clinically sober. Second Eval Re-Evaluation Time: 15:58 Change: Unchanged Comment: Discussed plan of care with the patient Course/Dx - Course Course Of Treatment: Patient is hemodynamically stable at this time. He is A&O x3. He is being assessed at this time and will be signed out to Dr. Philip upon shift change pending completion of the assessment and disposition. - Diagnoses Provider Diagnoses: Alcohol intoxication Discharge - Sign-Out/Discharge Documenting (check all that apply): Patient Departure - Pt will be discharged home under a good condition., Receiving Sign-Out Receiving patient FROM: Yovanny Llanos - The pt is a sign-out from Dr. Llanos at shift change pending disposition and results of mental health evaluation. - Discharge Plan Condition: Good Disposition: HOME Patient Education Materials: Alcohol Use Disorder (ED) Referrals: Keely Kwan MD [Primary Care Provider] - - Billing Disposition and Condition Condition: GOOD Disposition: Home Attestations Scribe Attestation: This is kelsey Deluna documenting for attending Dr. Ramiro Philip MD. User Type: Provider with Scribe Provider Attestation: The documentation recorded by the scribe accurately reflects the service I personally performed and the decisions made by me.
== END 2017-10-05 19:05 | disposition home or self-care (01) ==
LOC: ED 22:24
DX: F10.129 Alcohol abuse with intoxication, unspecified (principal); F32.9 Major depressive disorder, single episode, unspecified
CPT/HCPCS: 36415; 80053; 80307; 80320; 80329; 81003; 81015; 84443; 85025; 87086; 99285; A9270-GY; G0480

== ENCOUNTER 2017-10-07 22:21 | Emergency (ER) | payer MEDICAID ==
[~2017-10-07 22:21] MED LIST changes: -Al Hydrox/Mg Hydrox/Simet LIQ* 30 ML UDC PO ONE; +Haloperidol INJ IV/IM* 5 MG/ML AMP ONE; +LORazepam INJ* 2 MG/ML 1 ML VIAL ONE; -Lidocaine 2% VISCOUS* 15 ML UDC PO ONE; +diPHENhydraMINE IV* 50 MG/ML 1 ml VIAL (BENADRYL) ONE
[2017-10-07 22:56] LABS: ABS Basophils 0 10^3/ul (0-0.2); ABS Eosinophils 0 10^3/ul (0-0.6); ABS Lymphocytes 1.6 10^3/ul (1.0-4.8); ABS Monocytes 0.2 10^3/ul (0-0.8); ABS Neutrophils 1.2 10^3/ul (1.5-7.7); ABS Nucleated RBC 0 10^3/ul; Eosinophil % 1.3 % (0-6); Hematocrit 45 % (42-52); Hemoglobin 15.6 g/dl (14.0-18.0); Lymphocyte % 51.8 % (25-47); Mean Corpuscular HGB Conc 35 g/dl (31-36); Mean Corpuscular Hemoglobin 29 pg (27-31); Mean Corpuscular Volume 84 fL (80-94); Nucleated Red Blood Cells % 0.6; Platelet Count 127 10^3/ul (150-450); Red Cell Distribution Width 16 % (10.5-15)
[2017-10-07 23:13] LABS: EGFR Non-African American 84.3 (>60)
--- NOTE | 2017-10-08 01:45 | ED ---
Psychiatric Complaint - HPI Summary HPI Summary: This is scribe Volodymyr Forman documenting for attending Adelia Mann MD. A 47 y/o male BIBA and BIBP presents to ED s/p alcohol intoxication and threatening behavior. As per triage, "[place] and [place] police pt was [place] on scene. pt drinking "alot"; denies recreational drugs". As per nurse, "pt brought in via ems in handcuffs with [employer]. pt yelling, was threatening on scene. pt medicated as ordered, pt states he will be cooperative. cuffs removed [place] police. pt (L)lateral recumbant with easy erspiratoins. answers some questions with short answers. bed down, rails up, room safe. security @ bedside and outside room. warm blanket provided". As per nursing staff, EMS and police, the patient was mkicked out of his house by his girlfriend and was threatening her. Upon EMS arrival, patient was uncooperative and [place] troopers got involved. Patient was obviously heavily intoxicated, so patient was handcuffed and brought to [facility]. Patient ETOH was 5.21. Patient was very agitated, arguing and uncooperative with staff so a B52 was done (sedation, 2 shots). It was noted that the patient has multiple visits to [facility] for alcohol intoxication. LEVEL [address] I, Dr. Mann, personally performed the services described in this documentation as scribed in my presence and it is both accurate and complete. - History Of Current Complaint Chief Complaint: EDMentalHealth Time Seen by Provider: 10/07/17 22:27 Hx Obtained From: EMS, Other: - Police. Hx From Patient Unobtainable Due To: Other - Current condition, see HPI. Onset/Duration: Sudden Onset, Still Present Timing: Constant Severity Currently: None Character: Angry, Frustrated Aggravating Factor(s): Nothing Alleviating Factor(s): Nothing Associated Signs And Symptoms: Positive: Hostile - Allergies/Home Medications Allergies/Adverse Reactions: Allergies Allergy/AdvReac Type Severity Reaction Status Date / Time No Known Allergies Allergy Verified 08/25/17 18:52 PMH/Surg Hx/FS Hx/Imm Hx Endocrine/Hematology History: Reports: Other Endocrine/Hematological Disorders - hypoglycemia Denies: Hx Anticoagulant Therapy, Hx Diabetes, Hx Thyroid Disease Cardiovascular History: Reports: Hx Congestive Heart Failure, Hx Hypertension Denies: Hx Pacemaker/ICD Respiratory History: Reports: Hx Asthma Denies: Hx Chronic Obstructive Pulmonary Disease (COPD) GI History: Denies: Hx Ulcer Musculoskeletal History: Reports: Hx Scoliosis Sensory History: Reports: Hx Contacts or Glasses Denies: Hx Legally Blind, Hx Deafness, Hx Hearing Aid Opthamlomology History: Reports: Hx Contacts or Glasses Denies: Hx Legally Blind Psychiatric History: Reports: Hx Depression, Hx Panic Disorder, Hx Inpatient Treatment, Hx of Violent Episodes Against Others, Hx Substance Abuse, Other Psychiatric Issues/Disorders - adjustment disorder Denies: Hx Eating Disorder - Surgical History Surgery Procedure, Year, and Place: None Infectious Disease History: No Infectious Disease History: Denies: Hx Hepatitis, Hx Human Immunodeficiency Virus (HIV), Traveled Outside the [place] in Last 30 Days - Family History Known Family History: Positive: Unknown - [place]-Way and "has not seen parents in a long time" Negative: Cardiac Disease Family History: The patient does not know his family Hx. - Social History Alcohol Use: Daily Alcohol Amount: 2, 12 packs daily Hx Substance Use: No Substance Use Type: Reports: Cocaine, Marijuana Substance Use Comment - Amount & Last Used: last used cocaine 8 months ago, last used marijuana 2 weeks ago Hx Tobacco Use: No Smoking Status (MU): Never Smoked Tobacco Review of Systems Negative: Fever All Other Systems Reviewed And Are Negative: No Physical Exam - Summary Physical Exam Summary: VITAL SIGNS: Reviewed. GENERAL: Patient is a agitated and uncooperative male who is sleeping from sedation in the stretcher. Patient is not in any acute respiratory distress. Patient has multiple visits to [facility] for alcohol intoxication. Patient was agitated and angry and is heavily intoxicated from drinking ETOH. Patient was given sedation upon arrival. Level 5 caveat due to current condition and sedation. Alcohol in breathe, responsive to verbal stimuli. HEAD AND FACE: No signs of trauma. No ecchymosis, hematomas or skull depressions. No sinus tenderness. EYES: PERRLA, EOMI x 2, No injected conjunctiva, no nystagmus. EARS: Hearing grossly intact. Ear canals and tympanic membranes are within normal limits. MOUTH: Oropharynx within normal limits. NECK: Supple, trachea is midline, no adenopathy, no JVD, no carotid bruit, no c- spine tenderness, neck with full ROM. CHEST: Symmetric, no tenderness at palpation LUNGS: Clear to auscultation bilaterally. No wheezing or crackles. CVS: Regular rate and rhythm, S1 and S2 present, no murmurs or gallops appreciated. ABDOMEN: Soft, non-tender. No signs of distention. No rebound no guarding, and no masses palpated. Bowel sounds are normal. EXTREMITIES: FROM in all major joints, no edema, no cyanosis or clubbing. NEURO: Patient sedated, responsive to loud verbal stimulus by gross movement. SKIN: Dry and warm Triage Information Reviewed: Yes Vital Signs On Initial Exam: Initial Vitals Temp Pulse Resp BP Pulse Ox 98.7 F 106 18 144/92 95 10/07/17 22:24 10/07/17 22:24 10/07/17 22:24 10/07/17 22:24 10/07/17 22:24 Vital Signs Reviewed: Yes Diagnostics - Vital Signs Vital Signs Temp Pulse Resp BP Pulse Ox 10/08/17 00:00 72 98 10/07/17 23:00 75 97 10/07/17 22:40 74 90 10/07/17 22:24 98.7 F 106 18 144/92 95 - Laboratory Lab Results: Lab Results 10/07/17 10/07/17 Range/Units 22:51 22:51 WBC 3.0 L (3.5-10.8) 10^3/ul RBC 5.40 (4.00-5.40) 10^6/ul Hgb 15.6 (14.0-18.0) g/dl Hct 45 (42-52) % MCV 84 (80-94) fL MCH 29 (27-31) pg MCHC 35 (31-36) g/dl RDW 16 H (10.5-15) % Plt Count 127 L (150-450) 10^3/ul MPV 7.0 L (7.4-10.4) um3 Neut % (Auto) 38.6 (38-83) % Lymph % (Auto) 51.8 H (25-47) % [place] % (Auto) 7.2 H (0-7) % Eos % (Auto) 1.3 (0-6) % Baso % (Auto) 1.1 (0-2) % Absolute Neuts (auto) 1.2 L (1.5-7.7) 10^3/ul Absolute Lymphs (auto) 1.6 (1.0-4.8) 10^3/ul Absolute Monos (auto) 0.2 (0-0.8) 10^3/ul Absolute Eos (auto) 0 (0-0.6) 10^3/ul Absolute Basos (auto) 0 (0-0.2) 10^3/ul Absolute Nucleated RBC 0 10^3/ul Nucleated RBC % 0.6 Sodium 139 (135-145) mmol/L Potassium 3.7 (3.5-5.0) mmol/L Chloride 107 (101-111) mmol/L Carbon Dioxide 24 (22-32) mmol/L Anion Gap 8 (2-11) mmol/L BUN 15 (6-24) mg/dL Creatinine 0.95 (0.67-1.17) mg/dL Est GFR ( Amer) 102.0 (>60) Est GFR (Non-Af Amer) 84.3 (>60) BUN/Creatinine Ratio 15.8 (8-20) Glucose 113 H (70-100) mg/dL Calcium 7.8 L (8.6-10.3) mg/dL Total Bilirubin 0.30 (0.2-1.0) mg/dL AST 90 H (13-39) U/L ALT 44 (7-52) U/L Alkaline Phosphatase 88 (34-104) U/L Total Protein 7.2 (6.4-8.9) g/dL Albumin 3.0 L (3.2-5.2) g/dL Globulin 4.2 H (2-4) g/dL Albumin/Globulin Ratio 0.7 L (1-3) TSH 1.04 (0.34-5.60) mcIU/mL Salicylates < 2.50 (<30) mg/dL Acetaminophen < 15 mcg/mL Serum Alcohol 522 H* (<10) mg/dL Result Diagrams: 10/07/17 22:51 10/07/17 22:51 Lab Statement: Any lab studies that have been ordered have been reviewed, and results considered in the medical decision making process. Course/Dx - Course Course Of Treatment: A 47 y/o male BIBA and BIBP presents to ED s/p alcohol intoxication and threatening behavior. Patient has multiple visits to [facility] for alcohol intoxication. Patient was agitated, angry and is heavily intoxicated from drinking ETOH. Patient was given sedation upon arrival. Level 5 caveat due to current condition and sedation. Alcohol in breathe, responsive to verbal stimuli. No laboratory scans were done. In the ED course the patient recieved no medications. Patient was signed out to Dr. Reyes via Dr. Mann, awaiting sobriety, evaluation and disposition. - Differential Dx/Clinical Impression Provider Diagnosis: Alcohol intoxication Discharge - Sign-Out/Discharge Documenting (check all that apply): Sign-Out Patient Signing out patient TO: Ramiro Reyes Receiving patient FROM: Adelia Mann - Discharge Plan Condition: Stable Referrals: Keely Kwan MD [Primary Care Provider] - - Billing Disposition and Condition Condition: STABLE
--- NOTE | 2017-10-08 08:03 | PN ---
ED Flex Patient Progress Note Subjective: This is a 47 year-old M who is pending admission to [facility] / transfer to another psychiatric facility / discharge to home / or being observed secondary to ETOH intoxication. Pt. examined in room 8 around 0800. He is sleeping comfortably. VS stable. Objective: Vitals: Most recent vital signs documented below. General NAD, Alert and oriented x3. Laboratory: Current laboratory results documented below. Assessment: Pending MHE. Plan: Pending psychiatric or medical consultation to observe / transfer / admit / discharge will follow up daily . Vital Signs Temp Pulse Resp BP Pulse Ox 97.6 F 76 16 147/96 98 10/08/17 04:36 10/08/17 07:00 10/08/17 06:41 10/08/17 06:41 10/08/17 07:00 Lab Results - Entire Visit 10/07/17 10/07/17 22:51 22:51 WBC 3.0 L RBC 5.40 Hgb 15.6 Hct 45 MCV 84 MCH 29 MCHC 35 RDW 16 H Plt Count 127 L MPV 7.0 L Neut % (Auto) 38.6 Lymph % (Auto) 51.8 H Wilkinson % (Auto) 7.2 H Eos % (Auto) 1.3 Baso % (Auto) 1.1 Absolute Neuts (auto) 1.2 L Absolute Lymphs (auto) 1.6 Absolute Monos (auto) 0.2 Absolute Eos (auto) 0 Absolute Basos (auto) 0 Absolute Nucleated RBC 0 Nucleated RBC % 0.6 Sodium 139 Potassium 3.7 Chloride 107 Carbon Dioxide 24 Anion Gap 8 BUN 15 Creatinine 0.95 Est GFR ( Amer) 102.0 Est GFR (Non-Af Amer) 84.3 BUN/Creatinine Ratio 15.8 Glucose 113 H Calcium 7.8 L Total Bilirubin 0.30 AST 90 H ALT 44 Alkaline Phosphatase 88 Total Protein 7.2 Albumin 3.0 L Globulin 4.2 H Albumin/Globulin Ratio 0.7 L TSH 1.04 Salicylates < 2.50 Acetaminophen < 15 Serum Alcohol 522 H*
--- NOTE | 2017-10-08 13:36 | ED ---
Progress - Progress Note Progress Note: This is scribe Ghassan Ashton documenting for Ramiro Reyes M.D. 11.50 -- Dr. Reyes, using 0.3 method of reduction, states patient is clear for MHE, flex notified. 12:16 --Pt was brought to flex unit by [facility] . I, Dr. Reyes, personally performed the services described in this documentation as scribed in my presence and it is both accurate and complete. Re-Evaluation - Re-Evaluation First Eval Re-Evaluation Time: 16:22 Comment: [facility] [place] patient's case with Dr. Reyes. Patient will be discharged to home and follow up with [facility]. Course/Dx - Course Course Of Treatment: A 47 y/o male BIBA and BIBP presents to ED s/p alcohol intoxication and threatening behavior. Patient has multiple visits to [facility] for alcohol intoxication. Patient was agitated, angry and is heavily intoxicated from drinking ETOH. Patient was given sedation upon arrival. Level 5 caveat due to current condition and sedation. Alcohol in breathe, responsive to verbal stimuli. No laboratory scans were done. In the ED course the patient recieved no medications. Patient was signed out to Dr. Reyes via Dr. Mann, awaiting sobriety, evaluation and disposition. - Diagnoses Provider Diagnoses: Alcohol intoxication Discharge - Sign-Out/Discharge Documenting (check all that apply): Patient Departure - Discharge Plan Condition: Stable Disposition: HOME Patient Education Materials: Alcohol Intoxication (ED), Alcohol Use Disorder ( ED) Referrals: [facility] [Outside] [facility] [Outside] [facility] [Outside] Keely Kwan MD [Primary Care Provider] - - Billing Disposition and Condition Condition: STABLE Disposition: Home
[2017-10-08 16:00] VITALS: BP 167/124
== END 2017-10-08 16:51 | disposition home or self-care (01) ==
LOC: ED 22:21
DX: F10.129 Alcohol abuse with intoxication, unspecified (principal); Y90.8 Blood alcohol level of 240 mg/100 ml or more; Z86.79 Personal history of other diseases of the circulatory system; I10 Essential (primary) hypertension
CPT/HCPCS: 36415; 80053; 80320; 80329; 84443; 85025; 96374; 96375; 99283; G0480; J1200; J1630; J2060

== ENCOUNTER → 2017-10-10 20:48 | Emergency (ER) | payer MEDICAID ==
[~2017-10-10 20:48] MED LIST changes: -Haloperidol INJ IV/IM* 5 MG/ML AMP ONE; +LORazepam INJ* 2 MG/ML 1 ML VIAL IV PUSH ONE; -LORazepam INJ* 2 MG/ML 1 ML VIAL ONE; +cloNIDine TAB* 0.1 MG PO ONE; -diPHENhydraMINE IV* 50 MG/ML 1 ml VIAL (BENADRYL) ONE
--- NOTE | 2017-10-10 21:25 | ED ---
Psychiatric Complaint - HPI Summary HPI Summary: This is Edgar cole Diaz documenting for attending physician Adelia Mann MD. This patient is a 47 year old M BIBA to [facility] accompanied by a male friend with a chief complaint of anxiety. The patient rates the pain 8/10 in severity. Patient reports that his legs feel like wet noodles, he is seeing things, and dizziness. Pt states he has HTN and has not taken his medication for a week. Pt states he cannot get into see his doctor for 2 weeks. Per triage note the patient is worked up because he caught his girlfriend with another man earlier tonight. This recent stress has been very hard on him but he does deny HI/SI as well as intoxication. - History Of Current Complaint Chief Complaint: EDHypertension Time Seen by Provider: 10/10/17 20:59 Hx Obtained From: Patient Onset/Duration: Lasting Hours, Still Present Timing: Constant Severity Initially: Moderate Severity Currently: Moderate Character: Anxious Aggravating Factor(s): Recent Stress Has Suicidal: Denies: Thoughts, With A Plan Has Homicidal: Denies: Thoughts, With A Plan - Allergies/Home Medications Allergies/Adverse Reactions: Allergies Allergy/AdvReac Type Severity Reaction Status Date / Time No Known Allergies Allergy Verified 08/25/17 18:52 PMH/Surg Hx/FS Hx/Imm Hx Endocrine/Hematology History: Reports: Other Endocrine/Hematological Disorders - hypoglycemia Denies: Hx Anticoagulant Therapy, Hx Diabetes, Hx Thyroid Disease Cardiovascular History: Reports: Hx Congestive Heart Failure, Hx Hypertension Denies: Hx Pacemaker/ICD Respiratory History: Reports: Hx Asthma Denies: Hx Chronic Obstructive Pulmonary Disease (COPD) GI History: Denies: Hx Ulcer Musculoskeletal History: Reports: Hx Scoliosis Sensory History: Reports: Hx Contacts or Glasses Denies: Hx Legally Blind, Hx Deafness, Hx Hearing Aid Opthamlomology History: Reports: Hx Contacts or Glasses Denies: Hx Legally Blind Psychiatric History: Reports: Hx Depression, Hx Panic Disorder, Hx Inpatient Treatment, Hx of Violent Episodes Against Others, Hx Substance Abuse, Other Psychiatric Issues/Disorders - adjustment disorder Denies: Hx Eating Disorder - Surgical History Surgery Procedure, Year, and Place: None Infectious Disease History: No Infectious Disease History: Denies: Hx Hepatitis, Hx Human Immunodeficiency Virus (HIV), Traveled Outside the [place] in Last 30 Days - Family History Known Family History: Positive: Unknown - Penitentiary and "has not seen parents in a long time" Family History: The patient does not know his family Hx. - Social History Alcohol Use: Daily Alcohol Amount: 2, 12 packs daily Hx Substance Use: No Substance Use Type: Reports: Cocaine, Marijuana Substance Use Comment - Amount & Last Used: last used cocaine 8 months ago, last used marijuana 2 weeks ago Hx Tobacco Use: No Smoking Status (MU): Never Smoked Tobacco Review of Systems Positive: Other - "seeing things" Positive: Other - "legs feel like wet noodles" Neurological: Other - dizziness Psychological: Other - NEGATIVE: SI and HI Positive: Anxious, Other - recent stress All Other Systems Reviewed And Are Negative: Yes Physical Exam - Summary Physical Exam Summary: VITAL SIGNS: Reviewed. GENERAL: Patient is a well-developed and nourished male who appears to be upset and somewhat anxious HEAD AND FACE: No signs of trauma. No ecchymosis, hematomas or skull depressions. No sinus tenderness. EYES: PERRLA, EOMI x 2, No injected conjunctiva, no nystagmus. EARS: Hearing grossly intact. Ear canals and tympanic membranes are within normal limits. MOUTH: Oropharynx within normal limits. NECK: Supple, trachea is midline, no adenopathy, no JVD, no carotid bruit, no c- spine tenderness, neck with full ROM. CHEST: Symmetric, no tenderness at palpation LUNGS: Clear to auscultation bilaterally. No wheezing or crackles. CVS: Regular rate and rhythm, S1 and S2 present, no murmurs or gallops appreciated. ABDOMEN: Soft, non-tender. No signs of distention. No rebound no guarding, and no masses palpated. Bowel sounds are normal. EXTREMITIES: FROM in all major joints, no edema, no cyanosis or clubbing. NEURO: Alert and oriented x 3. No acute neurological deficits. Speech is normal and follows commands. SKIN: Dry and warm Triage Information Reviewed: Yes Vital Signs On Initial Exam: Initial Vitals Temp Pulse Resp BP Pulse Ox 99.6 F 104 16 163/113 92 10/10/17 20:54 10/10/17 20:54 10/10/17 20:54 10/10/17 20:54 10/10/17 20:54 Vital Signs Reviewed: Yes Diagnostics - Vital Signs Vital Signs Temp Pulse Resp BP Pulse Ox 10/10/17 20:54 99.6 F 104 16 163/113 92 - Laboratory Result Diagrams: 10/10/17 21:34 10/10/17 21:34 Lab Statement: Any lab studies that have been ordered have been reviewed, and results considered in the medical decision making process. - Radiology CXR Radiology Interpretation Completed By: ED Physician - no acute process pending official report. - EKG 21:19 Cardiac Rate: Tachycardia EKG Rhythm: Sinus Tachycardia - at 111 BPM EKG Interpretation: Normal axis. Normal interval. No ischemic changes Course/Dx - Course Assessment/Plan: This patient is a 47 year old M BIBA to [facility] accompanied by a male friend with a chief complaint of anxiety. The patient rates the pain 8/10 in severity. Patient reports that his legs feel like wet noodles, he is seeing things, and dizziness. Pt states he has HTN and has not taken his medication for a week. Pt states he cannot get into see his doctor for 2 weeks. Per triage note the patient is worked up because he caught his girlfriend with another man earlier tonight. This recent stress has been very hard on him but he does deny HI/SI as well as intoxication. An EKG reveals Normal axis. Normal interval. No ischemic changes. CXR reveals, no acute process pending official report. Test results with no significant abnormalities. In the ED course the patient was given catapres and Ativan and is feeling better. Dx HTN anxiety. Patient will be discharged with prescription for Norvasc and coreg and follow up from PCP. The patient is agreeable with this plan. - Differential Dx/Clinical Impression Provider Diagnosis: HTN (hypertension), Anxiety Discharge - Sign-Out/Discharge Documenting (check all that apply): Patient Departure - Discharge Plan Condition: Stable Disposition: HOME Prescriptions: amLODIPine TAB* [Norvasc 5 mg TAB*] 5 mg PO DAILY #30 tab Carvedilol TAB* [Coreg TAB*] 25 mg PO BID #60 tab Referrals: Keely Kwan MD [Primary Care Provider] - Additional Instructions: RETURN TO EMERGENCY DEPARTMENT FOR ANY NEW OR WORSENING SYMPTOMS Attestation Statement Scribe Attestation: This is Edgar cole documenting for attending physician Adelia Mann MD. User Type: Provider with Scribe Provider Attestation: The documentation recorded by the scribe accurately reflects the service I personally performed and the decisions made by me.
[2017-10-10 21:42] LABS: ABS Basophils 0 10^3/ul (0-0.2); ABS Eosinophils 0 10^3/ul (0-0.6); ABS Lymphocytes 1.5 10^3/ul (1.0-4.8); ABS Monocytes 0.4 10^3/ul (0-0.8); ABS Nucleated RBC 0 10^3/ul; Eosinophil % 0.3 % (0-6); Hematocrit 40 % (42-52); Hemoglobin 14.1 g/dl (14.0-18.0); Mean Corpuscular HGB Conc 35 g/dl (31-36); Mean Corpuscular Hemoglobin 30 pg (27-31); Mean Corpuscular Volume 85 fL (80-94); Mean Platelet Volume 7.6 um3 (7.4-10.4); Nucleated Red Blood Cells % 0.1; Platelet Count 155 10^3/ul (150-450); Red Blood Count 4.75 10^6/ul (4.00-5.40); Red Cell Distribution Width 16 % (10.5-15)
[2017-10-10 21:51] LABS: INR 0.86 (0.77-1.02)
[2017-10-10 21:59] LABS: EGFR Non-African American 69.7 (>60)
[2017-10-10 23:12] VITALS: BP 144/98
--- NOTE | 2017-10-11 07:27 | RAD ---
INDICATION: Hypertension COMPARISON: August 02, 2016 TECHNIQUE: An AP portable view obtained at 2126 hours is submitted. FINDINGS: Bones/Soft Tissues: There are no acute bony findings. Cardiomediastinal: The cardiomediastinal silhouette is normal. Lungs: There are no infiltrates. The examination is mildly expiratory. Pleura: There are no pleural effusions. Other: None IMPRESSION: No active disease R0
== END | disposition home or self-care (01) ==
LOC: ED 20:48
DX: I10 Essential (primary) hypertension (principal); F41.9 Anxiety disorder, unspecified; R00.0 Tachycardia, unspecified
CPT/HCPCS: 36415; 71045; 80053; 83735; 83880; 84484; 85025; 85610; 85730; 86703; 93005; 96374; 99282; A9270-GY; J2060

== ENCOUNTER 2017-10-11 18:31 | Emergency (ER) | payer MEDICAID ==
[2017-10-11] MEDS ORDERED: NS 0.9% 1000 ML* 1,000 ML IV ONE (20:27)
[2017-10-11 21:16] LABS: ABS Basophils 0 10^3/ul (0-0.2); ABS Eosinophils 0 10^3/ul (0-0.6); ABS Lymphocytes 1.8 10^3/ul (1.0-4.8); ABS Monocytes 0.4 10^3/ul (0-0.8); ABS Nucleated RBC 0 10^3/ul; Eosinophil % 0.6 % (0-6); Hematocrit 39 % (42-52); Hemoglobin 13.5 g/dl (14.0-18.0); Mean Corpuscular HGB Conc 35 g/dl (31-36); Mean Corpuscular Hemoglobin 29 pg (27-31); Mean Corpuscular Volume 85 fL (80-94); Mean Platelet Volume 7.2 um3 (7.4-10.4); Nucleated Red Blood Cells % 0.1; Platelet Count 136 10^3/ul (150-450); Red Blood Count 4.63 10^6/ul (4.00-5.40); Red Cell Distribution Width 16 % (10.5-15); White Blood Count 5.3 10^3/ul (3.5-10.8)
--- NOTE | 2017-10-11 21:17 | RAD ---
EXAM: CT Head Without Intravenous Contrast CLINICAL HISTORY: 47 years old, male; Signs and symptoms; Altered mental status/memory loss; Patient HX: ETOH, AMS; Additional info: AMS, intoxicated TECHNIQUE: Axial computed tomography images of the head/brain without intravenous contrast. COMPARISON: No relevant prior studies available. FINDINGS: Brain: Unremarkable. No hemorrhage. No significant white matter disease. No edema. Ventricles: Unremarkable. No ventriculomegaly. Bones/joints: Unremarkable. No acute fracture. Soft tissues: Unremarkable. Sinuses: Chronic sinus disease. Mastoid air cells: Unremarkable as visualized. No mastoid effusion. IMPRESSION: 1. No acute intracranial abnormality. R0
--- NOTE | 2017-10-11 21:28 | ED ---
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 The patient rates the pain 0/ 10 in severity. Symptoms aggravated by nothing. Symptoms alleviated by nothing. Patient reports extreme depression and extreme anxiety. Patient denies SI. Patient reports that he has been signed up for mental health counseling and alcohol abuse counseling. - History Of Current Complaint Chief Complaint: EDSubstanceAbuse Stated Complaint: 2208 Time Seen by Provider: 10/11/17 18:56 Hx Obtained From: Patient Hx From Patient Unobtainable Due To: Altered Mental Status Severity Initially: Mild Severity Currently: Mild - Allergies/Home Medications Allergies/Adverse Reactions: Allergies Allergy/AdvReac Type Severity Reaction Status Date / Time No Known Allergies Allergy Verified 10/11/17 18:46 PMH/Surg Hx/FS Hx/Imm Hx Previously Healthy: No Endocrine/Hematology History: Reports: Other Endocrine/Hematological Disorders - hypoglycemia Denies: Hx Anticoagulant Therapy, Hx Diabetes, Hx Thyroid Disease Cardiovascular History: Reports: Hx Congestive Heart Failure, Hx Hypertension Denies: Hx Pacemaker/ICD Respiratory History: Reports: Hx Asthma Denies: Hx Chronic Obstructive Pulmonary Disease (COPD) GI History: Denies: Hx Ulcer Musculoskeletal History: Reports: Hx Scoliosis Sensory History: Reports: Hx Contacts or Glasses Denies: Hx Legally Blind, Hx Deafness, Hx Hearing Aid Opthamlomology History: Reports: Hx Contacts or Glasses Denies: Hx Legally Blind Psychiatric History: Reports: Hx Depression, Hx Panic Disorder, Hx Inpatient Treatment, Hx of Violent Episodes Against Others, Hx Substance Abuse, Other Psychiatric Issues/Disorders - adjustment disorder Denies: Hx Eating Disorder - Surgical History Surgery Procedure, Year, and Place: None Infectious Disease History: No Infectious Disease History: Denies: Hx Hepatitis, Hx Human Immunodeficiency Virus (HIV), Traveled Outside the [place] in Last 30 Days - Family History Known Family History: Positive: Unknown - Chcf and "has not seen parents in a long time" Family History: The patient does not know his family Hx. - Social History Occupation: Employed Full-time Lives: With Family Alcohol Use: Daily Alcohol Amount: 2, 12 packs daily Hx Substance Use: No Substance Use Type: Reports: Cocaine, Marijuana Substance Use Comment - Amount & Last Used: last used cocaine 8 months ago, last used marijuana 2 weeks ago Hx Tobacco Use: No Smoking Status (MU): Never Smoked Tobacco Review of Systems - ROS Summary Review of Systems Summary: ROS UNABLE TO BE COMPLETED DUE TO LEVEL 5 CAVEAT - ALTERED MENTAL STATUS Neurological: Other - Positive altered mental status Positive: Anxious, Depressed All Other Systems Reviewed And Are Negative: No Physical Exam - Summary Physical Exam Summary: Appearance: Alert, conversive, nontoxic appearing Skin: Warm, dry, no mottling, no rashes, no contusions HEENT: EOMI, PERRL, moist mucous membranes Neck: No masses on the neck, supple Respiratory: Clear to auscultation, breath sounds present, no rales, no rhonchi , no wheezes Cardiovascular: RRR, pulses are symmetrical in both lower and upper extremities Abdomen: Soft, non-tender Bowel Sounds: Present Musculoskeletal: No CVA tenderness, no obvious deformity, moving all extremities in a grossly normal manner Neurological: A&Ox3, CN II-XII Intact, moving all extremities symmetrically Psychiatric: Normal affect and mood Triage Information Reviewed: Yes Vital Signs On Initial Exam: Initial Vitals Temp Pulse Resp BP Pulse Ox 97.5 F 88 16 141/107 97 10/11/17 18:43 10/11/17 18:43 10/11/17 18:43 10/11/17 18:43 10/11/17 18:43 Vital Signs Reviewed: Yes Diagnostics - Vital Signs Vital Signs Temp Pulse Resp BP Pulse Ox 10/11/17 18:43 97.5 F 88 16 141/107 97 - Laboratory Lab Results: Lab Results 10/11/17 Range/Units 21:09 WBC 5.3 (3.5-10.8) 10^3/ul RBC 4.63 (4.00-5.40) 10^6/ul Hgb 13.5 L (14.0-18.0) g/dl Hct 39 L (42-52) % MCV 85 (80-94) fL MCH 29 (27-31) pg MCHC 35 (31-36) g/dl RDW 16 H (10.5-15) % Plt Count 136 L (150-450) 10^3/ul MPV 7.2 L (7.4-10.4) um3 Neut % (Auto) 57.3 (38-83) % Lymph % (Auto) 34.0 (25-47) % [place] % (Auto) 7.4 H (0-7) % Eos % (Auto) 0.6 (0-6) % Baso % (Auto) 0.7 (0-2) % Absolute Neuts (auto) 3.0 (1.5-7.7) 10^3/ul Absolute Lymphs (auto) 1.8 (1.0-4.8) 10^3/ul Absolute Monos (auto) 0.4 (0-0.8) 10^3/ul Absolute Eos (auto) 0 (0-0.6) 10^3/ul Absolute Basos (auto) 0 (0-0.2) 10^3/ul Absolute Nucleated RBC 0 10^3/ul Nucleated RBC % 0.1 Result Diagrams: 10/11/17 21:09 10/11/17 21:09 Lab Statement: Any lab studies that have been ordered have been reviewed, and results considered in the medical decision making process. - Radiology CXR Radiology Interpretation Completed By: ED Physician - CXR reveals, per ED physician, no acute disease. - CT Brain CT CT Interpretation Completed By: Radiologist - Brain CT reveals, per radiologist , no acute intracranial abnormality. ED physician has reviewed this radiology report. Re-Evaluation - Re-Evaluation First Eval Re-Evaluation Time: 06:48 Change: Improved Comment: Patient is requesting to be discharged. He denies SI and HI Altered Mental Statu Course/Dx - Course Course Of Treatment: LEVEL 5 CAVEAT ALTERED MENTAL STATUS. 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 Brain CT reveals, per radiologist, no acute intracranial abnormality. CXR reveals, per ED physician, no acute disease. Bloodwork obtained. In the ED course the patient was given lorazepam and fluids. Patient will be discharged with follow up from PCP. Patient is agreeable with this plan. - Diagnoses Provider Diagnoses: Alcohol intoxication, Depression, Mood disorder Discharge - Sign-Out/Discharge Documenting (check all that apply): Sign-Out Patient Signing out patient TO: Ramiro Reyes - Upon shift change pending sobering and disposition - Discharge Plan Condition: Stable Referrals: Keely Kwan MD [Primary Care Provider] - Attestations Scribe Attestation: This is scribe Diana Day documenting for attending Rosa Gomes MD. User Type: Provider with Scribe Provider Attestation: The documentation recorded by the scribe accurately reflects the service I personally performed and the decisions made by me.
[2017-10-11 21:32] LABS: EGFR Non-African American 75.9 (>60)
[2017-10-11] MEDS ORDERED: LORazepam TAB(*) 1 MG PO ONE (21:51)
--- NOTE | 2017-10-12 07:31 | RAD ---
HISTORY: ams, r/o aspiration, intoxicated COMPARISONS: October 10, 2017 VIEWS: 1: frontal portable view of the chest at 8:57 PM FINDINGS: LINES AND TUBES: None. CARDIOMEDIASTINAL SILHOUETTE: The cardiomediastinal silhouette is normal for portable technique. PLEURA: The costophrenic angles are sharp. No pleural abnormalities are noted. LUNG PARENCHYMA: The lung volumes are low. The lungs are clear for the phase of respiration. ABDOMEN: The upper abdomen is clear. There is no subphrenic gas. BONES AND SOFT TISSUES: No bone or soft tissue abnormalities are noted. IMPRESSION: LOW LUNG VOLUMES. NO ACTIVE CARDIOPULMONARY DISEASE. R1
[2017-10-12 07:36] VITALS: BP 0/0
== END 2017-10-12 07:00 | disposition home or self-care (01) ==
LOC: ED 18:31
DX: F10.129 Alcohol abuse with intoxication, unspecified (principal); F32.9 Major depressive disorder, single episode, unspecified
CPT/HCPCS: 36415; 70450; 71045; 80053; 80320; 83735; 84443; 85025; 99284; G0480

== ENCOUNTER 2017-10-17 18:13 | Emergency (ER) | payer MEDICAID, OTHER ==
[2017-10-17] MEDS ORDERED: NS 0.9% 1000 ML* 2,000 ML IV ONE (18:21)
--- NOTE | 2017-10-17 18:23 | ED ---
Substance Abuse/Use - HPI Summary HPI Summary: 47 y/o male BIBA for depression. Pt walked to fire department requesting adm to ED. Pt states he has been noncompliant with meds for HTN and psych for approx 2 weeks. Pt states he drank this morning. He states he has "been on the ground for the past 3 days". Pt unresponsive when asked if he has any SI thoughts. Pt seen in the ED five days ago for depression. Sx not aggravated or alleviated by anything. - History Of Current Complaint Stated Complaint: ETOH Hx Obtained From: Patient Onset/Duration of Drug/ETOH Abuse: Hours Character: Depressed Aggravating Factor(s): Nothing Alleviating Factor(s): Nothing Associated Signs And Symptoms: Negative - Allergies/Home Medications Allergies/Adverse Reactions: Allergies Allergy/AdvReac Type Severity Reaction Status Date / Time No Known Allergies Allergy Verified 10/11/17 18:46 PMH/Surg Hx/FS Hx/Imm Hx Previously Healthy: No Endocrine/Hematology History: Reports: Other Endocrine/Hematological Disorders - hypoglycemia Denies: Hx Anticoagulant Therapy, Hx Diabetes, Hx Thyroid Disease Cardiovascular History: Reports: Hx Congestive Heart Failure, Hx Hypertension Denies: Hx Pacemaker/ICD Respiratory History: Reports: Hx Asthma Denies: Hx Chronic Obstructive Pulmonary Disease (COPD) GI History: Denies: Hx Ulcer Musculoskeletal History: Reports: Hx Scoliosis Sensory History: Reports: Hx Contacts or Glasses Denies: Hx Legally Blind, Hx Deafness, Hx Hearing Aid Opthamlomology History: Reports: Hx Contacts or Glasses Denies: Hx Legally Blind Psychiatric History: Reports: Hx Depression, Hx Panic Disorder, Hx Inpatient Treatment, Hx of Violent Episodes Against Others, Hx Substance Abuse, Other Psychiatric Issues/Disorders - adjustment disorder Denies: Hx Eating Disorder - Surgical History Surgery Procedure, Year, and Place: None Infectious Disease History: Denies: Hx Hepatitis, Hx Human Immunodeficiency Virus (HIV) - Family History Known Family History: Positive: Unknown - Halfway and "has not seen parents in a long time" Family History: The patient does not know his family Hx. - Social History Alcohol Use: Daily Alcohol Amount: 2, 12 packs daily Hx Substance Use: No Substance Use Type: Reports: Cocaine, Marijuana Substance Use Comment - Amount & Last Used: last used cocaine 8 months ago, last used marijuana 2 weeks ago Hx Tobacco Use: No Smoking Status (MU): Never Smoked Tobacco Review of Systems Constitutional: Negative Eyes: Negative ENT: Negative Cardiovascular: Negative Respiratory: Negative Gastrointestinal: Negative Genitourinary: Negative Musculoskeletal: Negative Skin: Negative Neurological: Negative Positive: Depressed All Other Systems Reviewed And Are Negative: No Physical Exam - Summary Physical Exam Summary: Appearance: Alert, conversive, nontoxic appearing. Smells of alcohol. Skin: Warm, dry, no mottling, no rashes, no contusions HEENT: EOMI, PERRL, moist mucous membranes Neck: No masses on the neck, supple Respiratory: Clear to auscultation, breath sounds present, no rales, no rhonchi , no wheezes Cardiovascular: RRR, pulses are symmetrical in both lower and upper extremities Abdomen: Soft, non-tender Bowel Sounds: Present Musculoskeletal: No CVA tenderness, no obvious deformity, moving all extremities in a grossly normal manner Neurological: A&Ox3, CN II-XII Intact, moving all extremities symmetrically Psychiatric: Mellowed, unresponsive. Triage Information Reviewed: Yes Vital Signs Reviewed: Yes Re-Evaluation - Re-Evaluation 1 Re-Evaluation Time: 21:45 Comment: Pt reports no fall, no injury. Pt is not suicidal. On exam - @ R second digit there is a blister distal tip. Course/Dx - Course Assessment/Plan: 47 y/o male BIBA for EtOH abuse c/o depression. Pt is intoxicated. Pt will be given IV fluids and allowed to sleep. He will be reevaluated by the evening attending. - Diagnoses Provider Diagnoses: Intoxication Discharge - Sign-Out/Discharge Documenting (check all that apply): Sign-Out Patient Signing out patient TO: Phani Nunez Receiving patient FROM: Rosa Gomes - Discharge Plan Referrals: Keely Kwan MD [Primary Care Provider] - - Attestation Statements Document Initiated by Scribe: Yes Documenting Scribe: Collin Carroll Provider For Whom Maribelibe is Documenting (Include Credential): Rosa Gomes MD Scribe Attestation: Collin Sanchez, scribed for Rosa Gomes MD on 10/17/17 at 0044.
--- NOTE | 2017-10-18 01:13 | ED ---
Progress - Progress Note Progress Note: Pt's EtOH serum came back at 1848. 0547 - Pt is sober, maintaining clear and coherent conversation. Pt will be sent home. - Results/Orders Results/Orders: Serum alcohol has a critical result at 442.0. Re-Evaluation - Re-Evaluation 1 Re-Evaluation Time: 21:45 Comment: Pt reports no fall, no injury. Pt is not suicidal. On exam - @ R second digit there is a blister distal tip. Course/Dx - Course Course Of Treatment: Chronic alcoholic who presents with alcohol intoxication. He is well-known to the ER for this. He sobered over the course of 12 hours. He now demonstrates clear speech, steady gait and a return to functional capacity. He has normal conversational speech and neurologic. I did with resources for local help for his addiction. - Diagnoses Provider Diagnoses: Alcoholism, Alcohol intoxication Discharge - Sign-Out/Discharge Documenting (check all that apply): Patient Departure, Receiving Sign-Out Receiving patient FROM: Arnol Frederick - Discharge Plan Condition: Stable Disposition: HOME Patient Education Materials: Alcohol Intoxication (ED), Abuse of Alcohol (ED) Referrals: Keeyl Kwan MD [Primary Care Provider] - Additional Instructions: Never drink to excess. You have been provided with a list of local resources to assist you with your drinking. Call beginning this morning to try to find some availability. Stay with family you may be able to assist you. Return if worse, new symptoms or other concerns. - Billing Disposition and Condition Condition: STABLE Disposition: Home - Attestation Statements Document Initiated by Scribe: Yes Documenting Scribe: Dary Agarwal Provider For Whom Cayetano is Documenting (Include Credential): Phani Nunez MD. Scribe Attestation: Dary Sanchez, scribed for Phani Nunez MD. on 10/18/17 at 0622. Scribe Documentation Reviewed: Yes Provider Attestation: The documentation as recorded by the Dary cole accurately reflects the service I personally performed and the decisions made by me, Phani Nunez MD.
[2017-10-18 05:54] VITALS: BP 137/71
== END 2017-10-18 05:52 | disposition home or self-care (01) ==
LOC: ED 18:13
DX: F10.229 Alcohol dependence with intoxication, unspecified (principal)
CPT/HCPCS: 36415; 80320; 96360; 99283; G0480

== ENCOUNTER 2017-10-19 20:27 | Emergency (ER) | payer MEDICAID ==
[2017-10-19 23:35] LABS: ABS Basophils 0 10^3/ul (0-0.2); ABS Eosinophils 0 10^3/ul (0-0.6); ABS Monocytes 0.2 10^3/ul (0-0.8); ABS Neutrophils 1.1 10^3/ul (1.5-7.7); ABS Nucleated RBC 0 10^3/ul; Eosinophil % 0.8 % (0-6); Hematocrit 38 % (42-52); Hemoglobin 13.1 g/dl (14.0-18.0); Mean Corpuscular HGB Conc 35 g/dl (31-36); Mean Corpuscular Hemoglobin 30 pg (27-31); Mean Corpuscular Volume 86 fL (80-94); Mean Platelet Volume 6.4 um3 (7.4-10.4); Nucleated Red Blood Cells % 0.2; Platelet Count 133 10^3/ul (150-450); Red Cell Distribution Width 16 % (10.5-15); White Blood Count 2.2 10^3/ul (3.5-10.8)
[2017-10-19 23:51] LABS: EGFR Non-African American 94.5 (>60)
--- NOTE | 2017-10-20 01:58 | ED ---
Substance Abuse/Use - HPI Summary HPI Summary: This patient is a 47 year old M BIBA to [facility] with a chief complaint of EtOH intoxication since 18:00. Patient requests detox and to speak with someone about his mental health. The patient rates the pain 0/10 in severity. Symptoms aggravated by nothing. Symptoms alleviated by nothing. Patient is seen at [facility] often for depression and EtOH abuse and is recognized by staff. - History Of Current Complaint Chief Complaint: EDSubstanceAbuse Stated Complaint: ETOH Time Seen by Provider: 10/19/17 20:32 Hx Obtained From: Patient, EMS Ingestion History: Type/Name Of Drug - EtOH Overdose Characteristics: Oral Timing Of Abuse: Daily Severity Currently: Moderate Aggravating Factor(s): Nothing Alleviating Factor(s): Nothing - Allergies/Home Medications Allergies/Adverse Reactions: Allergies Allergy/AdvReac Type Severity Reaction Status Date / Time No Known Allergies Allergy Verified 10/11/17 18:46 PMH/Surg Hx/FS Hx/Imm Hx Endocrine/Hematology History: Reports: Other Endocrine/Hematological Disorders - hypoglycemia Denies: Hx Anticoagulant Therapy, Hx Diabetes, Hx Thyroid Disease Cardiovascular History: Reports: Hx Congestive Heart Failure, Hx Hypertension Denies: Hx Pacemaker/ICD Respiratory History: Reports: Hx Asthma Denies: Hx Chronic Obstructive Pulmonary Disease (COPD) GI History: Denies: Hx Ulcer Musculoskeletal History: Reports: Hx Scoliosis Sensory History: Reports: Hx Contacts or Glasses Denies: Hx Legally Blind, Hx Deafness, Hx Hearing Aid Opthamlomology History: Reports: Hx Contacts or Glasses Denies: Hx Legally Blind Psychiatric History: Reports: Hx Depression, Hx Panic Disorder, Hx Inpatient Treatment, Hx of Violent Episodes Against Others, Hx Substance Abuse, Other Psychiatric Issues/Disorders - adjustment disorder Denies: Hx Eating Disorder - Surgical History Surgery Procedure, Year, and Place: None Infectious Disease History: No Infectious Disease History: Denies: Hx Hepatitis, Hx Human Immunodeficiency Virus (HIV), Traveled Outside the [place] in Last 30 Days - Family History Known Family History: Positive: Unknown - Assisted and "has not seen parents in a long time" Family History: The patient does not know his family Hx. - Social History Alcohol Use: Daily Alcohol Amount: 2, 12 packs daily Hx Substance Use: No Substance Use Type: Reports: Cocaine, Marijuana Substance Use Comment - Amount & Last Used: last used cocaine 8 months ago, last used marijuana 2 weeks ago Hx Tobacco Use: No Smoking Status (MU): Never Smoked Tobacco Review of Systems Negative: Fever Negative: Epistaxis Negative: Vomiting Negative: Headache All Other Systems Reviewed And Are Negative: Yes Physical Exam - Summary Physical Exam Summary: Appearance: Well-appearing, Well-nourished, lying in bed comfortably. Visibly intoxicated Skin: Warm, dry, no obvious rash Eyes: sclera anicteric, no conjunctival pallor ENT: mucous membranes moist, pharynx appears normal Neck: Supple, nontender Respiratory: Clear to auscultation, no signs of respiratory distress Cardiovascular: Normal S1, S2. No murmurs. Normal distal pulses in tibial and radial bilaterally. Abdomen: Soft, nontender, normal active bowel sounds present Musculoskeletal: Normal, Strength/ROM Intact Neurological: A&Ox3, awake and alert, mentation is normal, speech is fluent and appropriate Psychiatric: affect is normal, does not appear anxious or depressed Triage Information Reviewed: Yes Vital Signs On Initial Exam: Initial Vitals Temp Pulse Resp BP Pulse Ox 98 F 78 16 138/75 99 10/19/17 20:32 10/19/17 20:32 10/19/17 20:32 10/19/17 20:32 10/19/17 20:32 Vital Signs Reviewed: Yes Diagnostics - Vital Signs Vital Signs Temp Pulse Resp BP Pulse Ox 10/19/17 20:32 98 F 78 16 138/75 99 - Laboratory Lab Results: Lab Results 10/19/17 10/19/17 10/20/17 Range/Units 23:30 23:30 00:20 WBC 2.2 L (3.5-10.8) 10^3/ul RBC 4.40 (4.00-5.40) 10^6/ul Hgb 13.1 L (14.0-18.0) g/dl Hct 38 L (42-52) % MCV 86 (80-94) fL MCH 30 (27-31) pg MCHC 35 (31-36) g/dl RDW 16 H (10.5-15) % Plt Count 133 L (150-450) 10^3/ul MPV 6.4 L (7.4-10.4) um3 Neut % (Auto) 47.1 (38-83) % Lymph % (Auto) 44.0 (25-47) % [place] % (Auto) 6.9 (0-7) % Eos % (Auto) 0.8 (0-6) % Baso % (Auto) 1.2 (0-2) % Absolute Neuts (auto) 1.1 L (1.5-7.7) 10^3/ul Absolute Lymphs (auto) 1.0 (1.0-4.8) 10^3/ul Absolute Monos (auto) 0.2 (0-0.8) 10^3/ul Absolute Eos (auto) 0 (0-0.6) 10^3/ul Absolute Basos (auto) 0 (0-0.2) 10^3/ul Absolute Nucleated RBC 0 10^3/ul Nucleated RBC % 0.2 Sodium 143 (135-145) mmol/L Potassium 3.8 (3.5-5.0) mmol/L Chloride 107 (101-111) mmol/L Carbon Dioxide 27 (22-32) mmol/L Anion Gap 9 (2-11) mmol/L BUN 9 (6-24) mg/dL Creatinine 0.86 (0.67-1.17) mg/dL Est GFR ( Amer) 114.4 (>60) Est GFR (Non-Af Amer) 94.5 (>60) BUN/Creatinine Ratio 10.5 (8-20) Glucose 86 (70-100) mg/dL Calcium 7.8 L (8.6-10.3) mg/dL Total Bilirubin 0.30 (0.2-1.0) mg/dL AST 49 H (13-39) U/L ALT 33 (7-52) U/L Alkaline Phosphatase 65 (34-104) U/L Total Protein 6.7 (6.4-8.9) g/dL Albumin 2.9 L (3.2-5.2) g/dL Globulin 3.8 (2-4) g/dL Albumin/Globulin Ratio 0.8 L (1-3) Urine Opiates Screen None detected (None Detect) Ur Barbiturates Screen None detected (None Detect) Ur Phencyclidine Scrn None detected (None Detect) Ur Amphetamines Screen None detected (None Detect) U Benzodiazepines Scrn None detected (None Detect) Urine Cocaine Screen Presumptive positive A (None Detect) U Cannabinoids Screen None detected (None Detect) Serum Alcohol 432 H* (<10) mg/dL Result Diagrams: 10/19/17 23:30 10/19/17 23:30 Lab Statement: Any lab studies that have been ordered have been reviewed, and results considered in the medical decision making process. Course/Dx - Diagnoses Provider Diagnoses: Alcohol intoxication Discharge - Sign-Out/Discharge Documenting (check all that apply): Sign-Out Patient Signing out patient TO: Luz Fan Receiving patient FROM: Ramiro Philip - Discharge Plan Condition: Stable Disposition: ELOPEMENT Referrals: Keely Kwan MD [Primary Care Provider] - - Billing Disposition and Condition Condition: STABLE Disposition: Elopement - Attestation Statements Document Initiated by Scribe: Yes Documenting Scribe: Karissa Pabon Provider For Whom Cayetano is Documenting (Include Credential): Ramiro Philip MD Scribe Attestation: Karissa Sanchez, scribed for Ramiro Philip MD on 10/21/17 at 0141. Scribe Documentation Reviewed: Yes Provider Attestation: The documentation as recorded by the Karissa cole accurately reflects the service I personally performed and the decisions made by Ramiro gerard MD
[2017-10-20 07:17] VITALS: BP 136/85
--- NOTE | 2017-10-20 08:38 | ED ---
Progress - Progress Note Progress Note: This patient was signed out from Dr. Philip to Dr. Fan, awaiting M[facility]. At around 0810, the patient eloped in the ED, but given that he had initially complained that he wanted to be evaluated by the mental health department, the police will go and bring him back. Course/Dx - Diagnoses Provider Diagnoses: Alcohol intoxication Discharge - Sign-Out/Discharge Documenting (check all that apply): Patient Departure - Discharge Plan Condition: Stable Disposition: ELOPEMENT Referrals: Keely Kwan MD [Primary Care Provider] - - Billing Disposition and Condition Condition: STABLE Disposition: Elopement - Attestation Statements Document Initiated by Maribelibe: Yes Documenting Scribe: Sourav Milner Provider For Whom Cayetano is Documenting (Include Credential): Luz Fan MD Scribe Attestation: Sourav Sanchez, scribed for Luz Fan MD on 10/21/17 at 1049. Scribe Documentation Reviewed: Yes Provider Attestation: The documentation as recorded by the Sourav cole accurately reflects the service I personally performed and the decisions made by , Luz Fan MD
== END 2017-10-20 08:29 | disposition home or self-care (01) ==
LOC: ED 20:27
DX: F10.129 Alcohol abuse with intoxication, unspecified (principal); Y90.8 Blood alcohol level of 240 mg/100 ml or more
CPT/HCPCS: 36415; 80053; 80307; 80320; 85025; 99282; G0480

== ENCOUNTER 2017-10-21 11:02 | Inpatient (IN) | payer MEDICAID ==
[2017-10-21 11:51] LABS: ABS Basophils 0 10^3/ul (0-0.2); ABS Eosinophils 0 10^3/ul (0-0.6); ABS Lymphocytes 0.9 10^3/ul (1.0-4.8); ABS Monocytes 0.2 10^3/ul (0-0.8); ABS Neutrophils 1.7 10^3/ul (1.5-7.7); ABS Nucleated RBC 0 10^3/ul; Eosinophil % 0.1 % (0-6); Hematocrit 37 % (42-52); Hemoglobin 12.6 g/dl (14.0-18.0); Lymphocyte % 31.2 % (25-47); Mean Corpuscular HGB Conc 34 g/dl (31-36); Mean Corpuscular Hemoglobin 30 pg (27-31); Mean Corpuscular Volume 86 fL (80-94); Mean Platelet Volume 6.7 um3 (7.4-10.4); Nucleated Red Blood Cells % 0.1; Platelet Count 110 10^3/ul (150-450); Red Blood Count 4.28 10^6/ul (4.00-5.40); Red Cell Distribution Width 16 % (10.5-15); White Blood Count 2.9 10^3/ul (3.5-10.8)
[2017-10-21 12:09] LABS: EGFR Non-African American 85.3 (>60)
--- NOTE | 2017-10-21 12:41 | ED ---
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 He states that he wants to , and would sit in front of a car or shoot himself. Pt has had as much as possible to drink today. Pt has been here several times in the past week for similar complaints. He denies any physical pain. Pt states he drinks, smokes, and uses drugs. - History Of Current Complaint Chief Complaint: [facility] Time Seen by Provider: 10/21/17 11:12 Hx Obtained From: Patient, EMS Onset/Duration: Gradual Onset, Still Present Timing: Constant Character: Depressed Aggravating Factor(s): Alcohol Use Alleviating Factor(s): Nothing Related History: Positive For: Prior Psychiatric Issues Has Suicidal: Reports: Thoughts, With A Plan Has Homicidal: Denies: Thoughts - Allergies/Home Medications Allergies/Adverse Reactions: Allergies Allergy/AdvReac Type Severity Reaction Status Date / Time No Known Allergies Allergy Verified 10/11/17 18:46 PMH/Surg Hx/FS Hx/Imm Hx Endocrine/Hematology History: Reports: Other Endocrine/Hematological Disorders - hypoglycemia Denies: Hx Anticoagulant Therapy, Hx Diabetes, Hx Thyroid Disease Cardiovascular History: Reports: Hx Congestive Heart Failure, Hx Hypertension Denies: Hx Pacemaker/ICD Respiratory History: Reports: Hx Asthma Denies: Hx Chronic Obstructive Pulmonary Disease (COPD) GI History: Denies: Hx Ulcer Musculoskeletal History: Reports: Hx Scoliosis Sensory History: Reports: Hx Contacts or Glasses Denies: Hx Legally Blind, Hx Deafness, Hx Hearing Aid Opthamlomology History: Reports: Hx Contacts or Glasses Denies: Hx Legally Blind Psychiatric History: Reports: Hx Depression, Hx Panic Disorder, Hx Inpatient Treatment, Hx of Violent Episodes Against Others, Hx Substance Abuse, Other Psychiatric Issues/Disorders - adjustment disorder Denies: Hx Eating Disorder - Surgical History Surgery Procedure, Year, and Place: None - Immunization History Immunizations Up to Date: Unable to Obtain/Confirm Infectious Disease History: No Infectious Disease History: Denies: Hx Hepatitis, Hx Human Immunodeficiency Virus (HIV), Traveled Outside the [place] in Last 30 Days - Family History Known Family History: Positive: Unknown - Snf and "has not seen parents in a long time" Family History: The patient does not know his family Hx. - Social History Alcohol Use: Daily Alcohol Amount: 2, 12 packs daily Hx Substance Use: No Substance Use Type: Reports: Cocaine, Marijuana Substance Use Comment - Amount & Last Used: last used cocaine 8 months ago, last used marijuana 2 weeks ago Hx Tobacco Use: No Smoking Status (MU): Never Smoked Tobacco Review of Systems Negative: Fever Positive: Depressed, Other - SI All Other Systems Reviewed And Are Negative: Yes Physical Exam - Summary Physical Exam Summary: Appearance: no pain distress, depressed affect Skin: warm, dry, reflects adequate perfusion Head/face: normal Eyes: EOMI, KALPESH ENT: normal Neck: supple, non-tender Respiratory: CTA, breath sounds present Cardiovascular: RRR, pulses symmetrical Abdomen: non-tender, soft Bowel: present Musculoskeletal: normal, strength/ROM intact Neuro: normal, sensory motor intact, A&Ox3 Triage Information Reviewed: Yes Vital Signs On Initial Exam: Initial Vitals Temp Pulse Resp BP Pulse Ox 98.8 F 94 18 134/110 94 10/21/17 11:08 10/21/17 11:08 10/21/17 11:08 10/21/17 11:08 10/21/17 11:08 Vital Signs Reviewed: Yes Diagnostics - Vital Signs Vital Signs Temp Pulse Resp BP Pulse Ox 10/21/17 11:08 98.8 F 94 18 134/110 94 - Laboratory Lab Results: Lab Results 10/21/17 10/21/17 Range/Units 11:24 11:24 WBC 2.9 L (3.5-10.8) 10^3/ul RBC 4.28 (4.00-5.40) 10^6/ul Hgb 12.6 L (14.0-18.0) g/dl Hct 37 L (42-52) % MCV 86 (80-94) fL MCH 30 (27-31) pg MCHC 34 (31-36) g/dl RDW 16 H (10.5-15) % Plt Count 110 L (150-450) 10^3/ul MPV 6.7 L (7.4-10.4) um3 Neut % (Auto) 59.7 (38-83) % Lymph % (Auto) 31.2 (25-47) % [place] % (Auto) 8.3 H (0-7) % Eos % (Auto) 0.1 (0-6) % Baso % (Auto) 0.7 (0-2) % Absolute Neuts (auto) 1.7 (1.5-7.7) 10^3/ul Absolute Lymphs (auto) 0.9 L (1.0-4.8) 10^3/ul Absolute Monos (auto) 0.2 (0-0.8) 10^3/ul Absolute Eos (auto) 0 (0-0.6) 10^3/ul Absolute Basos (auto) 0 (0-0.2) 10^3/ul Absolute Nucleated RBC 0 10^3/ul Nucleated RBC % 0.1 Sodium 140 (135-145) mmol/L Potassium Pending Chloride 105 (101-111) mmol/L Carbon Dioxide 26 (22-32) mmol/L Anion Gap Pending BUN 10 (6-24) mg/dL Creatinine 0.94 (0.67-1.17) mg/dL Est GFR ( Amer) 103.2 (>60) Est GFR (Non-Af Amer) 85.3 (>60) BUN/Creatinine Ratio 10.6 (8-20) Glucose 226 H (70-100) mg/dL Calcium 7.6 L (8.6-10.3) mg/dL Total Bilirubin 0.30 (0.2-1.0) mg/dL AST Pending ALT 34 (7-52) U/L Alkaline Phosphatase 71 (34-104) U/L Total Protein 6.4 (6.4-8.9) g/dL Albumin 2.8 L (3.2-5.2) g/dL Globulin 3.6 (2-4) g/dL Albumin/Globulin Ratio 0.8 L (1-3) TSH 0.73 (0.34-5.60) mcIU/mL Salicylates < 2.50 (<30) mg/dL Acetaminophen < 15 mcg/mL Serum Alcohol 509 H* (<10) mg/dL Result Diagrams: 10/21/17 11:24 10/21/17 11:24 Lab Statement: Any lab studies that have been ordered have been reviewed, and results considered in the medical decision making process. Course/Dx - Course Course Of Treatment: Pt is a 47 y/o male BIB ambulance and police who presents to the ED c/o depression and alcohol intoxication. He states that he wants to , and would sit in front of a car or shoot himself. Pt has had as much as possible to drink today. Pt has been here several times in the past week for similar complaints. A physical exam revealed depressed affect. Final dx are alcohol intoxication and depression. Spoke to Dr. Shelton, who accepts pt for admission. Pt is agreeable with this plan. - Differential Dx/Clinical Impression Differential Diagnosis/HQI/PQRI: Positive: Alcohol Intoxication, Depression Provider Diagnosis: Alcohol intoxication, Depression - Physician Notifications Discussed Care Of Patient With: Caryl Shelton Time Discussed With Above Provider: 12:20 Instructed by Provider To: Admit As Inpatient - Pt will be admitted to sober up. Discharge - Sign-Out/Discharge Documenting (check all that apply): Patient Departure - Admit, Sign-Out Patient Signing out patient TO: Caryl Shelton - Discharge Plan Condition: Stable Disposition: ADMITTED TO [facility] Referrals: Keely Kwan MD [Primary Care Provider] - - Billing Disposition and Condition Condition: STABLE Disposition: Admitted to [facility] - Attestation Statements Document Initiated by Scribe: Yes Documenting Scribe: Marixa Tinoco Provider For Whom Scribe is Documenting (Include Credential): Jim Gallegos MD Scribe Attestation: Marixa Sanchez, scribed for Jim Gallegos MD on 10/21/17 at 1401. Scribe Documentation Reviewed: Yes Provider Attestation: The documentation as recorded by the coltibMarixa thomason accurately reflects the service I personally performed and the decisions made by me, Jim Gallegos MD
[2017-10-21 12:42] LABS: Urine Appearance Clear; Urine Blood 2+ (Negative); Urine Color Straw; Urine Ketones Negative (Negative); Urine Protein 3+(>=500 mg/dL) (Negative); Urine Red Blood Cell Trace(0-2/hpf) (Absent); Urine Specific Gravity 1.004 (1.010-1.030); Urine Urobilinogen Negative (Negative); Urine White Blood Cell Absent (Absent)
[2017-10-21] MEDS ORDERED: Magnesium Sulfate IV* 3 GM in NS 0.9% 100 ML* 100 ML IVPB ONE (13:15)
[2017-10-21] MEDS: Potassium Chlor TAB* 20 MEQ TAB.ER PO SCH ×2 (15:21→18:05)
[2017-10-21] MEDS: Heparin VIAL(*) 5000 UNITS/ML VIAL (FIVE THOUSAND) SUBCUT SCH ×2 (15:22→20:21)
--- NOTE | 2017-10-21 19:42 | HP ---
CC: Dr. Keely Kwan * HISTORY AND PHYSICAL: DATE OF ADMISSION: 10/21/17 PRIMARY CARE PROVIDER: Dr. Keely Kwan (the patient states he has not seen her in a while). ATTENDING PHYSICIAN: Dr. Caryl Ramires * (dictated by Florentin Liu NP) CHIEF COMPLAINT: Suicidal ideation and alcohol intoxication. HISTORY OF PRESENT ILLNESS: Mr. Ceja is a 47-year-old male with past medical history significant for hypertension, chronic diastolic, systolic congestive heart failure, asthma, depression, and alcoholism, who initially presented to the emergency room yesterday, 10/20/17, with complaints of alcohol intoxication since the day prior, the patient was requesting detox and to discuss his mental health with somebody. The patient then eloped from the emergency room, the police went to get him, patient returned to the emergency room with the EMS and police after making statements regarding wanting to harm himself. It is also to note that the patient was recently hospitalized from 09/03/17, to 09/05/17, for depression at which time he requested for his discharge with plans for mental health outpatient followup. It is also to note that on multiple presentations to the emergency room, the patient has either ran out or have taken himself off of his home medications. He has frequently been in the emergency room during the month of September. He has been seen on the , the , the , the , the , the or , , and . He denies any fevers, chills, chest pain, or shortness of breath. He states he ran out of his medications approximately 2 weeks ago. He denies nausea, vomiting, diarrhea. The patient reports having suicidal ideations, but would not elaborate at this time. While in the emergency room, he was found to have an alcohol level of 509, leukopenia with a white blood cell count of 2.9, hypokalemia, potassium at 3.2. Hypomagnesium, magnesium of 1.7, his other toxicology was negative. Due to the patient being intoxicated, the Hospitalists were asked to evaluate him for admission. PAST MEDICAL HISTORY: 1. Hypertension. 2. Chronic diastolic, systolic congestive heart failure. 3. Asthma. 4. Depression. 5. Alcoholism. PAST SURGICAL HISTORY: None. HOME MEDICATIONS: Please note the patient has been off of his home medications for approximately 2 weeks. He believes they should be as follows: 1. Amlodipine 5 mg oral daily. 2. Carvedilol 25 mg oral twice daily. 3. Torsemide 20 mg oral daily. 4. Potassium chloride 10 mEq oral daily. 5. Wellbutrin 150 mg oral daily. It appears the patient in the past has been on naltrexone, but he is unaware if he should on this or not at this time. ALLERGIES: No known drug allergies. FAMILY HISTORY: The patient is unaware of his family history. He denies any knowledge of heart disease, diabetes, or cancer. SOCIAL HISTORY: The patient denies tobacco or recreational drug use. According to emergency room records, he last used cocaine 8 weeks ago and marijuana 2 weeks ago. He reports drinking 2 to 3 large beers daily. He is reluctant to report the amount of alcohol that he is drinking daily. He does not have a surrogate decision maker that he would like to name at this time. REVIEW OF SYSTEMS: Review of systems are performed, an 11-point review of systems. All the pertinent positives and negatives are mentioned in the history of present illness. The remaining review of systems are negative. PHYSICAL EXAMINATION GENERAL APPEARANCE: The patient is drowsy, pleasant, appears to be in no acute distress. VITAL SIGNS: Temperature 98.8, heart rate 94, respiratory rate 18, O2 sat 94% on room air, blood pressure 134/110. HEENT: Normocephalic, atraumatic. Pupils are equal and reactive to light. Extraocular movements are intact. RESPIRATORY: There is no accessory muscle use. The lungs are clear to auscultation bilateral. CARDIOVASCULAR: Regular rate and rhythm. S1 and S2 present. There are no murmurs, rubs or gallops heard. ABDOMEN: Soft, nontender, nondistended. There are bowel sounds present x4. EXTREMITIES: There is no lower extremity edema. DP and PT pulses are 2+ and symmetric. MUSCULOSKELETAL: There is no clubbing or cyanosis noted. The patient exhibits good strength in all extremities. NEUROLOGIC: The patient is alert and oriented x4. Cranial nerves II through XII are grossly intact. PSYCHOLOGICAL: The patient is calm and cooperative. SKIN: There is no rashes or abnormalities seen. DIAGNOSTIC STUDIES/LAB DATA: Sodium 140, potassium 3.2, chloride 105, CO2 26, BUN 10, creatinine 0.94, glucose 226. White blood cell count 2.9, hemoglobin 12.6, hematocrit 37, platelet count 110, TSH 0.73, serum alcohol 509, magnesium 1.7. IMPRESSION: Mr. Ceja is a 47-year-old male with past medical history significant for hypertension, chronic diastolic/systolic heart failure, asthma, depression, alcoholism, who presents to the emergency room with alcohol intoxication and suicidal ideation, who will be admitted as an inpatient for alcohol abuse and suicidal ideation. ASSESSMENT/PLAN: 1. Alcohol abuse. It is unclear exactly how much alcohol the patient drinks daily. He will be placed on a WAM protocol, multivitamin, thiamine and folic acid. I will ask social work to consult on the patient. 2. Suicidal ideation. The patient is not endorsing suicidal ideation at this time. He will have a Psychiatry consult once be da up. I suspect he would benefit from being admitted to Behavioral Services Unit or being assisted with getting treatment for his alcoholism. 3. Electrolyte abnormalities. The patient has hypokalemia and hypomagnesemia, I suspect this is secondary to his alcohol abuse, we will give him replacement and to recheck his labs in the morning. 4. Leukopenia. Unclear etiology at this time. We will recheck the patient's labs in the morning. 5. Chronic combined systolic/diastolic congestive heart failure. His last EF was 45 to 50% in July 2016. We will continue him on his carvedilol and torsemide with daily weights, strict I and Os, and low-sodium diet. He does not appear to be in an acute CHF exacerbation at this time. 6. Hypertension. We will resume the patient on his home amlodipine, also continue him on carvedilol and torsemide. 7. Depression. We will continue the patient on his home Wellbutrin and ask Psychiatry to consult on him. 8. Fluids, electrolytes, and nutrition. Low-sodium diet. 9. Code status: Full code. 10. DVT prophylaxis. The patient is at high risk. He will have subcu heparin. 11. Disposition. Inpatient. TIME SPENT: Time for this admission was approximately 60 minutes and greater than half of that was spent with the patient discussing medications, past medical history, and the events leading up to her arrival today and performing a physical examination. The case was then reviewed with the attending, Dr. Ramires, who agrees with the plan of care. Reviewed by FLORENTIN LIU, CYNTHIA-Alli 10/23/17 1404 [id number]/[facility] #: [id number] GWENDOLYN
[2017-10-21] MEDS: Carvedilol TAB* 25 MG PO SCH (20:22)
[2017-10-21] MEDS: Melatonin 3 MG TAB PO PRN (23:15)
[2017-10-22] MEDS: Heparin VIAL(*) 5000 UNITS/ML VIAL (FIVE THOUSAND) SUBCUT SCH ×2 (05:21→14:25)
[2017-10-22] MEDS: Acetaminophen TAB* 325 MG PO PRN (05:21)
[2017-10-22 06:49] LABS: EGFR Non-African American 85.3 (>60)
[2017-10-22 07:01] LABS: ABS Basophils 0 10^3/ul (0-0.2); ABS Eosinophils 0 10^3/ul (0-0.6); ABS Lymphocytes 0.8 10^3/ul (1.0-4.8); ABS Monocytes 0.3 10^3/ul (0-0.8); ABS Neutrophils 1.1 10^3/ul (1.5-7.7); ABS Nucleated RBC 0 10^3/ul; Eosinophil % 0.9 % (0-6); Hematocrit 35 % (42-52); Hemoglobin 12.2 g/dl (14.0-18.0); Lymphocyte % 36.7 % (25-47); Mean Corpuscular HGB Conc 35 g/dl (31-36); Mean Corpuscular Hemoglobin 30 pg (27-31); Mean Corpuscular Volume 86 fL (80-94); Mean Platelet Volume 7.1 um3 (7.4-10.4); Nucleated Red Blood Cells % 0.2; Platelet Count 82 10^3/ul (150-450); Red Blood Count 4.07 10^6/ul (4.00-5.40); Red Cell Distribution Width 16 % (10.5-15); White Blood Count 2.2 10^3/ul (3.5-10.8)
[2017-10-22] MEDS ORDERED: Magnesium Sulfate 1 GM IV* 1 GM/100 ML BAG IV ONE (08:10)
[2017-10-22] MEDS ORDERED: Ondansetron INJ* 2 MG/ML VIAL ONE (08:28)
[2017-10-22] MEDS: Ondansetron INJ* 2 MG/ML VIAL IV PRN ×2 (08:36→19:22)
[2017-10-22] MEDS: Carvedilol TAB* 25 MG PO SCH ×2 (08:38→20:23)
[2017-10-22] MEDS: Folic Acid TAB* 1 MG PO SCH (08:38)
[2017-10-22] MEDS: amLODIPine TAB* 5 MG PO SCH (08:38)
[2017-10-22] MEDS: Torsemide TAB* 20 MG PO SCH (08:38)
[2017-10-22] MEDS: Potassium Chlor TAB* 10 MEQ TAB.ER PO SCH (08:38)
[2017-10-22] MEDS: Multivitamins/Minerals TAB PO SCH (08:38)
[2017-10-22] MEDS: BuPROPion XL* 150 MG TAB.XL PO SCH (08:39)
[2017-10-22] MEDS: Thiamine TAB* 100 MG TAB PO SCH (08:39)
[2017-10-22] MEDS: LORazepam TAB(*) 1 MG PO SCH ×4 (09:52→20:23)
--- NOTE | 2017-10-22 15:53 | PN ---
Subjective Date of Service: 10/22/17 Interval History: Mr. Ceja reports feeling a little better today. He still "hangover" from binge drinking yesterday, mild headaches, but no chest pain or SOB. Had been evaluated by psych earlier today. He states feeling "OK" at times, but occasionally feels helpless and very depressed. He expressed desire to enroll in ETOH rehab facility. Has been in drug and ETOH rehab in the past, but unfortunately he often relapsed after discharge. Denies tremors, shakes, weakness, nausea or vomiting. Family History: Unchanged from Admission Social History: Unchanged from Admission Past Medical History: Unchanged from Admission Objective Active Medications: Acetaminophen (Tylenol Tab*) 650 mg PO Q6H PRN PRN Reason: PAIN Last Admin: 10/22/17 05:21 Dose: 650 mg Amlodipine Besylate (Norvasc Tab*) 5 mg PO DAILY [facility] Last Admin: 10/22/17 08:38 Dose: 5 mg Bupropion HCl (Wellbutrin Xl *) 150 mg PO DAILY [facility]; Protocol Last Admin: 10/22/17 08:39 Dose: 150 mg Carvedilol (Coreg Tab*) 25 mg PO BID [facility] Last Admin: 10/22/17 08:38 Dose: 25 mg Folic Acid (Folvite Tab*) 1 mg PO DAILY [facility] Last Admin: 10/22/17 08:38 Dose: 1 mg Heparin Sodium (Porcine) (Heparin Vial(*)) 5,000 units SUBCUT Q8HR [facility] Last Admin: 10/22/17 14:25 Dose: 5,000 units Lorazepam (Ativan Tab(*)) 0 - 6 mg PO .PER [facility] PROTOCOL [facility]; Protocol Last Admin: 10/22/17 14:25 Dose: 2 mg Melatonin (Melatonin) 3 mg PO BEDTIME PRN PRN Reason: SLEEP Last Admin: 10/21/17 23:15 Dose: 3 mg Multivitamins/Minerals (Theragran/Minerals Tab*) 1 tab PO DAILY [facility] Last Admin: 10/22/17 08:38 Dose: 1 tab Ondansetron HCl (Zofran Inj*) 4 mg IV Q6H PRN PRN Reason: NAUSEA Last Admin: 10/22/17 08:36 Dose: 4 mg Potassium Chloride (Klor Con Er Tab*) 10 meq PO DAILY [facility] Last Admin: 10/22/17 08:38 Dose: 10 meq Thiamine HCl (Vitamin B-1 Tab*) 100 mg PO DAILY [facility] Last Admin: 10/22/17 08:39 Dose: 100 mg Torsemide (Demadex*) 20 mg PO DAILY [facility] Last Admin: 10/22/17 08:38 Dose: 20 mg Vital Signs - 8 hr 10/22/17 10/22/17 10/22/17 08:25 09:50 09:52 Temperature 98.4 F 98.3 F Pulse Rate 66 72 Respiratory 18 16 16 Rate Blood Pressure 141/84 136/89 (mmHg) O2 Sat by Pulse 96 97 Oximetry 10/22/17 10/22/17 10/22/17 12:14 12:34 14:05 Temperature 98.1 F 98.2 F Pulse Rate 68 74 Respiratory 16 16 18 Rate Blood Pressure 145/101 149/111 (mmHg) O2 Sat by Pulse 96 97 Oximetry 10/22/17 14:25 Temperature Pulse Rate Respiratory 16 Rate Blood Pressure (mmHg) O2 Sat by Pulse Oximetry Oxygen Devices in Use Now: None Appearance: Appears tired, but comfortable in bed. Eyes: No Scleral Icterus, PERRLA Ears/Nose/Mouth/Throat: Clear Oropharnyx, Mucous Membranes Moist Neck: NL Appearance and Movements; NL JVP, Trachea Midline Respiratory: Symmetrical Chest Expansion and Respiratory Effort, Clear to Auscultation Cardiovascular: NL Sounds; No Murmurs; No JVD, RRR Abdominal: NL Sounds; No Tenderness; No Distention Extremities: No Edema Neurological: Alert and Oriented x 3, NL Sensation, NL Muscle Strength and Tone Nutrition: Taking PO's Result Diagrams: 10/22/17 06:12 10/22/17 06:12 Additional Lab and Data: Lab Results 10/21/17 10/21/17 Range/Units 11:24 11:24 WBC 2.9 L (3.5-10.8) 10^3/ul RBC 4.28 (4.00-5.40) 10^6/ul Hgb 12.6 L (14.0-18.0) g/dl Hct 37 L (42-52) % MCV 86 (80-94) fL MCH 30 (27-31) pg MCHC 34 (31-36) g/dl RDW 16 H (10.5-15) % Plt Count 110 L (150-450) 10^3/ul MPV 6.7 L (7.4-10.4) um3 Neut % (Auto) 59.7 (38-83) % Lymph % (Auto) 31.2 (25-47) % [place] % (Auto) 8.3 H (0-7) % Eos % (Auto) 0.1 (0-6) % Baso % (Auto) 0.7 (0-2) % Absolute Neuts (auto) 1.7 (1.5-7.7) 10^3/ul Absolute Lymphs (auto) 0.9 L (1.0-4.8) 10^3/ul Absolute Monos (auto) 0.2 (0-0.8) 10^3/ul Absolute Eos (auto) 0 (0-0.6) 10^3/ul Absolute Basos (auto) 0 (0-0.2) 10^3/ul Absolute Nucleated RBC 0 10^3/ul Nucleated RBC % 0.1 Sodium 140 (135-145) mmol/L Potassium Pending Chloride 105 (101-111) mmol/L Carbon Dioxide 26 (22-32) mmol/L Anion Gap Pending BUN 10 (6-24) mg/dL Creatinine 0.94 (0.67-1.17) mg/dL Est GFR ( Amer) 103.2 (>60) Est GFR (Non-Af Amer) 85.3 (>60) BUN/Creatinine Ratio 10.6 (8-20) Glucose 226 H (70-100) mg/dL Calcium 7.6 L (8.6-10.3) mg/dL Total Bilirubin 0.30 (0.2-1.0) mg/dL AST Pending ALT 34 (7-52) U/L Alkaline Phosphatase 71 (34-104) U/L Total Protein 6.4 (6.4-8.9) g/dL Albumin 2.8 L (3.2-5.2) g/dL Globulin 3.6 (2-4) g/dL Albumin/Globulin Ratio 0.8 L (1-3) TSH 0.73 (0.34-5.60) mcIU/mL Salicylates < 2.50 (<30) mg/dL Acetaminophen < 15 mcg/mL Serum Alcohol 509 H* (<10) mg/dL Microbiology and Other Data: Microbiology 10/21/17 12:30 Urine Culture - Final Urine No Growth (<1,000 CFU/mL) Diagnostic Imaging: . EKG Data: . Assess/Plan/Problems-Billing Assessment: A 47 y/o male with PMH HTN, chronic systolic/diastolic heart failure, depression and ETOH abuse, who presented to the ED with ETOH intoxication and suicidal ideation. - Patient Problems (1) Alcohol intoxication Current Visit: Yes Status: Acute Comment: - Presented to ED with serum alcohol>500 - Clinically stable and sober now - environmental services floor tech consulted for ETOH rehab placement - Continue MVI, thiamine and folic acid (2) Suicidal ideation Current Visit: Yes Status: Acute Comment: - Psychiatric evaluation done, patient still unstable with bouts of depressed mood and could be still having suicidal thoughts. - Continue 1:1 observation (3) Hypertension Current Visit: Yes Status: Acute Comment: - Continue Carvidilol and Norvasc (4) Leukopenia Current Visit: Yes Status: Acute Comment: - Unclear etiology, will continue to check labs (5) Depression Current Visit: Yes Status: Acute Comment: - Continue Wellbutrin (6) Alcohol withdrawal Current Visit: Yes Status: Acute Comment: - Continue WAM protocol - Clinically stable - Patient desires ETOH rehab facility upon discharge (7) Electrolyte abnormality Current Visit: Yes Status: Acute Comment: - Hypomagnesemia and hypokalemia on admission, likely 2/2 ETOH abuse - Replace lytes, check labs in AM (8) DVT prophylaxis Current Visit: Yes Status: Acute Comment: - SubQ Heparin (9) Full code status Current Visit: Yes Status: Acute Status and Disposition: Inpatient for ETOH withdrawal. Anticipate discharge when medically stable for placement at ETOH rehab facility.
--- NOTE | 2017-10-22 18:06 | CONS ---
CONSULTATION REPORT: DATE OF CONSULT: 10/22/17 SUPERVISING PSYCHIATRIST: Dr. Paras Ricci. ATTENDING PROVIDER: ISA Miguel CONSULTING PROVIDER: Deidre Clarke NP REASON FOR CONSULT: Psychiatry was consulted due the patient's statements of suicidal ideation and chronic alcohol use disorder. PSYCHIATRIC HISTORY: Mr. Ceja is a 47-year-old black male with history of alcohol use disorder and unspecified depressive disorder. The patient has presented to the hospital numerous times with acute alcohol intoxication. He was admitted to the behavioral services unit in August of this year. During that admission, he was medically detoxed from alcohol and stabilized psychiatrically. The patient was referred to [facility]. He was also given medications for alcohol use disorder including naltrexone and gabapentin. Upon approach, the patient is lying in bed. He is sleeping. He is moderately difficult to arouse. Upon awakening, he recognizes specifications writer and is participatory in conversation. The patient presents as dysphoric with poor eye contact. He is circumstantial in regards to his most recent girlfriend being in a relationship with another man. He states that since he caught his girlfriend with another man, he has been "spiraling down." The patient states that he has been sleeping outside since his girlfriend took in the man that she is now dating. He states he primarily spends time in "a jungle," he goes to [place] to mixing picker tender cans and finds unused alcohol. He states that he often is able to walk into a store and walk out of it with beer with no repercussions. The patient states that he has been working with [facility] to try to get into inpatient rehab. However, he missed appointments last week at [facility] at [facility]. The patient denies need to go to the mental health unit. He gives various reasons, including needing to be near a television in order to distract him from depressive and anxious thoughts. We reviewed his history since being admitted to the mental health unit in August. He states that he was taking naltrexone and other medicines that were prescribed and noticed that he was getting sick. He therefore stopped taking all medicines in order to continue to drink alcohol. The patient is vague in regards to suicidal ideation. He endorses hopelessness and a desire to "not live the way I've been living." During the interview, the patient sits up and faces specifications writer, sits on the end of the bed. Again, he is dysphoric with head down with poor eye contact. He politely excuses himself to use the bathroom. He has a slow gait with some tremors noted. He endorsed feeling "shaky." The patient has a history of violent crimes and is on the sex offender registry. Due to this history and vague suicidal ideation, the patient remains on one-to-one observation. MENTAL STATUS EXAM: Will is a 47-year-old black male with muscular build. He is calm, cooperative, and answers questions fully. He is dressed in a hospital gown, disheveled, and unkempt. Alert and oriented x3. Eye contact is poor. Speech is soft and articulate. Mood is dysphoric. Affect is constricted. Thought process is circumstantial in regards to relationship with ex- girlfriend. Thought content is positive for passive wish. He denies active SI, HI, or . He denies auditory or visual hallucinations. Insight and judgment are poor as evidenced by repeat hospitalist emergency presentations related to alcohol intoxication. Fund of knowledge is adequate. DIAGNOSES: 1. Alcohol-induced mood disorder. 2. Unspecified depressive disorder. 3. History of antisocial personality disorder. ASSESSMENT: Mr. Ceja is a 47-year-old black male with prior psychiatric admissions and incarceration in custodial. He reports difficulty abstaining from alcohol. He has intermittently been to [facility] at [facility]. Due to his compulsion to drink alcohol, he has missed appointments including the physical at [facility] for referral to substance abuse rehab. The patient is currently in active alcohol withdrawal. He has poor insight and judgment and at this time does not have capacity to make safe medical decisions. The patient has been offered admission to the mental health unit, but declined. The patient has been offered medications for substance use disorder and declined these as well. The patient will remain on one-to-one observation on medical floor during alcohol detox. Psychiatry will continue to follow daily. DEIDRE CLARKE NP [id number]/[facility] #: [id number] [facility]
[2017-10-23] MEDS: Heparin VIAL(*) 5000 UNITS/ML VIAL (FIVE THOUSAND) SUBCUT SCH ×4 (00:23→21:23)
[2017-10-23] MEDS: LORazepam TAB(*) 1 MG PO SCH ×3 (02:15→06:05)
[2017-10-23 06:48] LABS: ABS Basophils 0 10^3/ul (0-0.2); ABS Eosinophils 0.1 10^3/ul (0-0.6); ABS Lymphocytes 0.9 10^3/ul (1.0-4.8); ABS Monocytes 0.3 10^3/ul (0-0.8); ABS Neutrophils 2.7 10^3/ul (1.5-7.7); ABS Nucleated RBC 0 10^3/ul; Eosinophil % 2.2 % (0-6); Hematocrit 39 % (42-52); Lymphocyte % 21.9 % (25-47); Mean Corpuscular HGB Conc 36 g/dl (31-36); Mean Corpuscular Hemoglobin 30 pg (27-31); Mean Corpuscular Volume 85 fL (80-94); Mean Platelet Volume 7.4 um3 (7.4-10.4); Nucleated Red Blood Cells % 0.2; Platelet Count 97 10^3/ul (150-450); Red Blood Count 4.59 10^6/ul (4.00-5.40); Red Cell Distribution Width 15 % (10.5-15)
[2017-10-23 07:07] LABS: EGFR Non-African American 71.9 (>60)
[2017-10-23] MEDS: Carvedilol TAB* 25 MG PO SCH ×2 (08:00→20:04)
[2017-10-23] MEDS ORDERED: Potassium Chlor TAB* 20 MEQ TAB.ER PO ONE (08:00)
[2017-10-23] MEDS: Torsemide TAB* 20 MG PO SCH (08:00)
[2017-10-23] MEDS: Folic Acid TAB* 1 MG PO SCH (08:00)
[2017-10-23] MEDS: Multivitamins/Minerals TAB PO SCH (08:01)
[2017-10-23] MEDS: Potassium Chlor TAB* 10 MEQ TAB.ER PO SCH (08:01)
[2017-10-23] MEDS: Thiamine TAB* 100 MG TAB PO SCH (08:02)
[2017-10-23] MEDS: amLODIPine TAB* 5 MG PO SCH (08:02)
[2017-10-23] MEDS: BuPROPion XL* 150 MG TAB.XL PO SCH (08:03)
[2017-10-23] MEDS: Magnesium Sulfate IV* 3 GM in NS 0.9% 100 ML* 100 ML IVPB ONE ×2 (09:36→11:37)
--- NOTE | 2017-10-23 11:39 | PN ---
Subjective - Subjective Date of Service: 10/23/17 Service Type: 95056 Hosp care 25 min moderate complexity Subjective: Patient is being treated by medical staff for active alcohol withdrawal. He reports urge to drink alcohol, along with desire to "go through with" a referral to inpatient substance use treatment. He states he is likely going to be able to live at [facility] after a 28-day inpatient stay. Patient denies active SI/HI/. He has been calm and in behavioral control. Patient has minimal insight into consequences of alcohol use and minimizes his actions in regards to current psychosocial stressors. During interview, patient notified by Amy Fisher LMSW that he will likely be accepted to [facility] pending a phone screen. Field Application Engineer inquired about his thoughts /feelings. He states he is anxious due to not having more than one change of clothing and is waiting for a local friend to bring donated clothing. Field Application Engineer attempts to discuss motivation and barriers to recovery. Patient closes eyes and apologizes for sedation, attributing it to medications. Objective - Appearance Appearance: Well Developed/Nourished Dysmorphic Features: No Hygiene: Normal Grooming: Well Kept - Behavior Psychomotor Activities: Normal Exhibits Abnormal Movement: No - Attitude and Relatedness Attitude and Relatedness: Superficially Cooperative Eye Contact: Good - Speech Quality: Unpressured Latencies: Normal Quantity: Appropriate - Mood Patient's Decription of Mood: "Anxious" - Affect Observed Affect: Good Affect Consistent with: Euthymia - Thought Process Patient's Thought Process: Coherent, Goal Directed Thought Content: No Passive Wish, No Suicidal Planning, No Homicidal Ideation, No Paranoid Ideation - Sensorium Experiencing Hallucinations: No, Sensorium is Clear Type of Hallucinations: Visual: No, Auditory: No, Command: No - Level of Consciousness Level of Consciousness: Alert Orientation: Yes Intact, Yes Orientated to Time, Yes Orientated to Place, Yes Orientated to Person - Impulse Control Impulse Control: Impaired - Insight and Judgement Insight and Judgement: Poor Assessment - Assessment Merits Inpatient Hospitalization: For Immediate Safety, For Stabilization, For Discharge Planning Inpatient DSM-V Dx: F10.24 Clinical Impression: 47yo black male with history of prior psychiatric admissions and incarceration in prisons. He has presented to the ED numerous times with significantly high levels of alcohol. He reports difficulty abstaining from alcohol and has missed outpatient appointments due to compulsion to drink alcohol. Patient agrees to referrals for inpatient substance use treatment. Plan - Plan Treatment Plan: Name: THOMAS FIGUEROA Birthdate: 1970 [id number] Patient awaiting acceptance and bed date for inpatient substance use treatment. The patient is currently being treated for active alcohol withdrawal. He has poor insight and judgment and at this time does not have capacity to make safe medical decisions. The patient has been offered admission to mental health unit , but declined. The patient has been offered medications for substance use disorder and declined these as well. The patient will remain with a safety monitor on medical floor during alcohol detox. Psychiatry will continue to follow daily. Continued Medication Management: Consider Medication Medications: Current Medications Acetaminophen (Tylenol Tab*) 650 mg PO Q6H PRN PRN Reason: PAIN Last Admin: 10/22/17 05:21 Dose: 650 mg Amlodipine Besylate (Norvasc Tab*) 5 mg PO DAILY [facility] Last Admin: 10/23/17 08:02 Dose: 5 mg Bupropion HCl (Wellbutrin Xl *) 150 mg PO DAILY [facility]; Protocol Last Admin: 10/23/17 08:03 Dose: 150 mg Carvedilol (Coreg Tab*) 25 mg PO BID [facility] Last Admin: 10/23/17 08:00 Dose: 25 mg Folic Acid (Folvite Tab*) 1 mg PO DAILY [facility] Last Admin: 10/23/17 08:00 Dose: 1 mg Heparin Sodium (Porcine) (Heparin Vial(*)) 5,000 units SUBCUT Q8HR [facility] Last Admin: 10/23/17 06:05 Dose: 5,000 units Lorazepam (Ativan Tab(*)) 0 - 6 mg PO .PER [facility] PROTOCOL [facility]; Protocol Last Admin: 10/23/17 06:05 Dose: 2 mg Melatonin (Melatonin) 3 mg PO BEDTIME PRN PRN Reason: SLEEP Last Admin: 10/21/17 23:15 Dose: 3 mg Multivitamins/Minerals (Theragran/Minerals Tab*) 1 tab PO DAILY [facility] Last Admin: 10/23/17 08:01 Dose: 1 tab Ondansetron HCl (Zofran Inj*) 4 mg IV Q6H PRN PRN Reason: NAUSEA Last Admin: 10/22/17 19:22 Dose: 4 mg Potassium Chloride (Klor Con Er Tab*) 10 meq PO DAILY [facility] Last Admin: 10/23/17 08:01 Dose: 10 meq Thiamine HCl (Vitamin B-1 Tab*) 100 mg PO DAILY [facility] Last Admin: 10/23/17 08:02 Dose: 100 mg Torsemide (Demadex*) 20 mg PO DAILY [facility] Last Admin: 10/23/17 08:00 Dose: 20 mg - Discharge Plan Discharge Plan: Drug/Alcohol Rehab
--- NOTE | 2017-10-23 14:30 | PN ---
Subjective Date of Service: 10/23/17 Interval History: Mr. Ceja reports doing well today. He is more focused, still has minimal hand tremors, but no shakes, headaches, nausea or vomiting. Seen earlier by psych, refused U admission, still likes to be discharged to [facility] rehab facility. He had a phone interview with [facility] for potential admission. Appetite is better, ambulatory in his room, denies new complaints. Family History: Unchanged from Admission Social History: Unchanged from Admission Past Medical History: Unchanged from Admission Objective Active Medications: Acetaminophen (Tylenol Tab*) 650 mg PO Q6H PRN PRN Reason: PAIN Last Admin: 10/22/17 05:21 Dose: 650 mg Amlodipine Besylate (Norvasc Tab*) 5 mg PO DAILY [facility] Last Admin: 10/23/17 08:02 Dose: 5 mg Bupropion HCl (Wellbutrin Xl *) 150 mg PO DAILY [facility]; Protocol Last Admin: 10/23/17 08:03 Dose: 150 mg Carvedilol (Coreg Tab*) 25 mg PO BID [facility] Last Admin: 10/23/17 08:00 Dose: 25 mg Folic Acid (Folvite Tab*) 1 mg PO DAILY [facility] Last Admin: 10/23/17 08:00 Dose: 1 mg Heparin Sodium (Porcine) (Heparin Vial(*)) 5,000 units SUBCUT Q8HR [facility] Last Admin: 10/23/17 14:08 Dose: 5,000 units Lorazepam (Ativan Tab(*)) 0 - 6 mg PO .PER [facility] PROTOCOL [facility]; Protocol Last Admin: 10/23/17 06:05 Dose: 2 mg Melatonin (Melatonin) 3 mg PO BEDTIME PRN PRN Reason: SLEEP Last Admin: 10/21/17 23:15 Dose: 3 mg Multivitamins/Minerals (Theragran/Minerals Tab*) 1 tab PO DAILY [facility] Last Admin: 10/23/17 08:01 Dose: 1 tab Ondansetron HCl (Zofran Inj*) 4 mg IV Q6H PRN PRN Reason: NAUSEA Last Admin: 10/22/17 19:22 Dose: 4 mg Potassium Chloride (Klor Con Er Tab*) 10 meq PO DAILY [facility] Last Admin: 10/23/17 08:01 Dose: 10 meq Thiamine HCl (Vitamin B-1 Tab*) 100 mg PO DAILY [facility] Last Admin: 10/23/17 08:02 Dose: 100 mg Torsemide (Demadex*) 20 mg PO DAILY [facility] Last Admin: 10/23/17 08:00 Dose: 20 mg Vital Signs - 8 hr 10/23/17 10/23/17 10/23/17 07:48 08:00 10:00 Temperature 98.8 F Pulse Rate 79 Respiratory 17 17 17 Rate Blood Pressure 158/114 (mmHg) O2 Sat by Pulse 99 Oximetry 10/23/17 10/23/17 10/23/17 12:00 12:16 12:38 Temperature 97.6 F Pulse Rate 79 Respiratory 20 20 19 Rate Blood Pressure 146/109 (mmHg) O2 Sat by Pulse 98 Oximetry Oxygen Devices in Use Now: None Appearance: Appears comfortable and in NAD Eyes: No Scleral Icterus, PERRLA Ears/Nose/Mouth/Throat: Clear Oropharnyx, Mucous Membranes Moist Neck: Trachea Midline, No Thyroid Enlargement, Masses Respiratory: Symmetrical Chest Expansion and Respiratory Effort, Clear to Auscultation Cardiovascular: NL Sounds; No Murmurs; No JVD, RRR Abdominal: NL Sounds; No Tenderness; No Distention Extremities: No Edema Neurological: Alert and Oriented x 3, NL Sensation, NL Muscle Strength and Tone Nutrition: Taking PO's Result Diagrams: 10/23/17 06:33 10/23/17 06:33 Additional Lab and Data: Lab Results Microbiology and Other Data: Microbiology 10/21/17 12:30 Urine Culture - Final Urine No Growth (<1,000 CFU/mL) Diagnostic Imaging: . EKG Data: . Assess/Plan/Problems-Billing Assessment: A 47 y/o male with PMH HTN, chronic systolic/diastolic heart failure, depression and ETOH abuse, who presented to the ED with ETOH intoxication and suicidal ideation. - Patient Problems (1) Alcohol intoxication Current Visit: Yes Status: Acute Comment: - Presented to ED with serum alcohol>500 - Clinically stable and sober now - environmental services specialist consulted for ETOH rehab placement - Continue MVI, thiamine and folic acid - Potentional discharge to [facility] in 1-2 days (2) Suicidal ideation Current Visit: Yes Status: Acute Comment: - Psychiatric evaluation done, patient more stable, does not express any suicidal ideation at this time. - Converted from 1:1 observation to safety monitor. (3) Hypertension Current Visit: Yes Status: Acute Comment: - Continue Carvidilol and Norvasc (4) Leukopenia Current Visit: Yes Status: Acute Comment: - Unclear etiology, resolved. (5) Depression Current Visit: Yes Status: Acute Comment: - Continue Wellbutrin (6) Alcohol withdrawal Current Visit: Yes Status: Acute Comment: - Continue WAM protocol - Clinically stable - Patient desires ETOH rehab facility upon discharge (7) Electrolyte abnormality Current Visit: Yes Status: Acute Comment: - Hypomagnesemia and hypokalemia on admission, likely 2/2 ETOH abuse - Replace lytes, check labs in AM (8) DVT prophylaxis Current Visit: Yes Status: Acute Comment: - SubQ Heparin (9) Full code status Current Visit: Yes Status: Acute Status and Disposition: Inpatient for ETOH withdrawal. Anticipate discharge when medically stable for placement at ETOH rehab facility.
[2017-10-23] MEDS: Acetaminophen TAB* 325 MG PO PRN (20:04)
[2017-10-23] MEDS: Melatonin 3 MG TAB PO PRN (21:23)
[2017-10-24] MEDS: Heparin VIAL(*) 5000 UNITS/ML VIAL (FIVE THOUSAND) SUBCUT SCH (05:57)
[2017-10-24 06:32] LABS: EGFR Non-African American 77.6 (>60)
[2017-10-24] MEDS: Thiamine TAB* 100 MG TAB PO SCH (08:06)
[2017-10-24] MEDS: Multivitamins/Minerals TAB PO SCH (08:06)
[2017-10-24] MEDS: BuPROPion XL* 150 MG TAB.XL PO SCH (08:07)
[2017-10-24] MEDS: Folic Acid TAB* 1 MG PO SCH (08:07)
[2017-10-24] MEDS: Carvedilol TAB* 25 MG PO SCH (08:07)
[2017-10-24] MEDS: amLODIPine TAB* 5 MG PO SCH (08:07)
[2017-10-24] MEDS: Potassium Chlor TAB* 10 MEQ TAB.ER PO SCH (08:07)
[2017-10-24] MEDS: Torsemide TAB* 20 MG PO SCH (08:07)
[2017-10-24] MEDS ORDERED: Magnesium Sulfate 1 GM IV* 1 GM/100 ML BAG IV ONE (08:09)
[2017-10-24] MEDS ORDERED: Potassium Chlor TAB* 20 MEQ TAB.ER PO ONE (08:09)
[2017-10-24] MEDS: Ondansetron INJ* 2 MG/ML VIAL IV PRN (09:48)
[2017-10-24 10:49] VITALS: BP 131/86
--- NOTE | 2017-10-24 11:21 | PN ---
Subjective - Subjective Date of Service: 10/24/17 Service Type: 71705 Hosp care 15 min low complexity Subjective: Patient speaking with forepart laster upon approach. patient notified he was declined to [facility] due to concerns of superficial motivation. Grease Worker discussed this with patient. Patient declines offer of admission to mental health unit. He states preference to work with outpatient providers, [facility] and [facility]. He denies SI /HI or . Objective - Appearance Appearance: Well Developed/Nourished Dysmorphic Features: No Hygiene: Normal Grooming: Well Kept - Behavior Psychomotor Activities: Normal Exhibits Abnormal Movement: No - Attitude and Relatedness Attitude and Relatedness: Superficially Cooperative Eye Contact: Good - Speech Quality: Unpressured Latencies: Normal Quantity: Appropriate - Mood Patient's Decription of Mood: "Okay" - Affect Observed Affect: Good Affect Consistent with: Euthymia - Thought Process Patient's Thought Process: Circumstantial Thought Content: No Passive Wish, No Suicidal Planning, No Homicidal Ideation, No Paranoid Ideation - Sensorium Experiencing Hallucinations: No, Sensorium is Clear Type of Hallucinations: Visual: No, Auditory: No, Command: No - Level of Consciousness Level of Consciousness: Alert Orientation: Yes Intact, Yes Orientated to Time, Yes Orientated to Place, Yes Orientated to Person - Impulse Control Impulse Control: Tenuous - Insight and Judgement Insight and Judgement: Poor Assessment - Assessment Merits Inpatient Hospitalization: For Discharge Planning Inpatient DSM-V Dx: F10.24 Clinical Impression: 47yo black male with history of prior psychiatric admissions and incarceration in prisons. He has presented to the ED numerous times with significantly high levels of alcohol. He reports difficulty abstaining from alcohol and has missed outpatient appointments due to compulsion to drink alcohol. Patient agreed to referrals for inpatient substance use treatment but has been declined. He declines offer of further treatment on mental health unit. Plan - Plan Treatment Plan: Name: THOMAS FIGUEROA Birthdate: 1970 [id number] Patient has been medically stabilized. The patient has been offered admission to mental health unit, but declined. The patient has been offered medications for substance use disorder and declined these as well. Follow up appointments arranged by Amy Fisher LMSW. Medications: Current Medications Acetaminophen (Tylenol Tab*) 650 mg PO Q6H PRN PRN Reason: PAIN Last Admin: 10/23/17 20:04 Dose: 650 mg Amlodipine Besylate (Norvasc Tab*) 5 mg PO DAILY [facility] Last Admin: 10/24/17 08:07 Dose: 5 mg Bupropion HCl (Wellbutrin Xl *) 150 mg PO DAILY [facility]; Protocol Last Admin: 10/24/17 08:07 Dose: 150 mg Carvedilol (Coreg Tab*) 25 mg PO BID [facility] Last Admin: 10/24/17 08:07 Dose: 25 mg Folic Acid (Folvite Tab*) 1 mg PO DAILY [facility] Last Admin: 10/24/17 08:07 Dose: 1 mg Heparin Sodium (Porcine) (Heparin Vial(*)) 5,000 units SUBCUT Q8HR [facility] Last Admin: 10/24/17 05:57 Dose: 5,000 units Lorazepam (Ativan Tab(*)) 0 - 6 mg PO .PER [facility] PROTOCOL [facility]; Protocol Last Admin: 10/23/17 06:05 Dose: 2 mg Melatonin (Melatonin) 3 mg PO BEDTIME PRN PRN Reason: SLEEP Last Admin: 10/23/17 21:23 Dose: 3 mg Multivitamins/Minerals (Theragran/Minerals Tab*) 1 tab PO DAILY [facility] Last Admin: 10/24/17 08:06 Dose: 1 tab Ondansetron HCl (Zofran Inj*) 4 mg IV Q6H PRN PRN Reason: NAUSEA Last Admin: 10/24/17 09:48 Dose: 4 mg Potassium Chloride (Klor Con Er Tab*) 10 meq PO DAILY [facility] Last Admin: 10/24/17 08:07 Dose: 10 meq Thiamine HCl (Vitamin B-1 Tab*) 100 mg PO DAILY [facility] Last Admin: 10/24/17 08:06 Dose: 100 mg Torsemide (Demadex*) 20 mg PO DAILY [facility] Last Admin: 10/24/17 08:07 Dose: 20 mg - Discharge Plan Discharge Plan: Outpatient Follow Up
--- NOTE | 2017-10-24 20:43 | DS ---
CC: Deidre Vanegas NP, from [facility]; Dr. Kwan * DISCHARGE SUMMARY: DATE OF ADMISSION: 10/21/17 DATE OF DISCHARGE: 10/24/17 PATIENT OF ATTENDING HOSPITALIST: Dr. Caryl Ramires. ADMITTING PHYSICIAN: Dr. Caryl Ramires. ATTENDING HOSPITALIST WHILE THE PATIENT WAS IN THE HOSPITAL: Bessie Corbett DO * (DICTATED BY ISA CEDILLO) CONSULTATIONS: With Dr. Ricci via his nurse practitioner, Deidre Vanegas. PRIMARY CARE PROVIDER: Dr. Keely Kwan. PROCEDURES: None. ADMISSION DIAGNOSES: 1. Suicidal ideation. 2. Alcohol intoxication. 3. History of alcohol abuse. 4. Hypertension. 5. Chronic diastolic and systolic congestive heart failure. 6. Asthma. 7. Depression. DISCHARGE DIAGNOSES: 1. Suicidal ideation. 2. Alcohol intoxication. 3. History of alcohol abuse. 4. Hypertension. 5. Chronic diastolic and systolic congestive heart failure. 6. Asthma. 7. Depression. HISTORY OF PRESENT ILLNESS: Mr. Ceja is a 47-year-old gentleman with past medical history significant for hypertension, chronic diastolic/systolic congestive heart failure, asthma, depression, and alcohol abuse, who initially presented to the emergency room on 10/20/17 with complaints of alcohol intoxication. The patient requested detox back then and discussed the case with Mental Health. The patient then eloped from the emergency room. He returned to the emergency room on the following day voluntarily making statements regarding harming himself. He was recently hospitalized back in early August from 09/03/17 until 09/05/17 with complaints of depression at this time. He was discharged back then with Mental Health outpatient followup; however, the patient failed to maintain his followup appointment. He has been frequently in the emergency room during the month of September almost every other day with complaints of alcohol intoxication. He ran out of his blood pressure medicine about 2 weeks ago and has been having suicidal ideation; however, he did not elaborate any plans at this time. While he was in the emergency room, he was found to have an alcohol level of 509, leukopenia with white cell count of 2.9, which appeared to be chronic looking at prior record. He also had low potassium of 3.2 and low magnesium of 1.7. Given the fact that the patient was intoxicated with alcohol, we were asked to see him for further evaluation and to consider admission for probable withdrawal symptoms. HOSPITAL COURSE: The patient was admitted under hospitalist services on to the medical floor. Given his suicidal ideation, Mental Health consultation was obtained on the following day and it was done by Deidre Vanegas , nurse practitioner. The patient was found to have no suicidal ideation or plans at that time and recommendations were made to remain on one-to-one observation on the medical floor and for treatment of alcohol withdrawal symptoms. The patient was seen on the following couple of days and he showed significant improvement clinically. He had some tremors in the beginning that were recorded per [facility] protocol and were relieved using Ativan as needed. He denied any complaints of chest pain, palpitations, headache, blurred vision, or any neurological symptoms. Laboratory workup was drawn again revealed resolution of his leukopenia as well as further replacement of his magnesium and potassium was done daily with frequent checks of his electrolytes. He was seen every day for rounding by behavioral health provider and also, the patient expressed interest to be discharged to an alcohol rehab inpatient facility. hard tile setter apprentice and social workers were involved and multiple phone calls were made to [facility]. The patient had a phone interview with the facility yesterday and unfortunately, his request was denied. He was seen earlier today by behavioral health provider and the patient was offered a bed at the behavioral health unit to accommodate him since he still has some issues with depression; however, he denied any suicidal ideation or planning at this time. His social situation and housing situation were addressed and the patient repeatedly refused any potential admission to behavioral health unit. I had a long discussion with the patient as well as patient intake representative of [facility] pillowcase turner. We both tried to convince the patient to accept voluntary admission to [facility] for observation and also to try multiple referrals for alcohol withdrawal inpatient facility. He has been having difficulty abstaining from alcohol and had missed multiple outpatient appointments due to compulsion to drink alcohol. At this point, he is medically stable and he is offered admission to behavioral health unit until further referral to outpatient alcohol facility is done; however, he refused and would like to be discharged from the hospital. He declined any offer of further treatment on mental health unit at this time. Given all the above notice and the fact that the patient is cognitively able to make his own decision, we will go ahead and discharge him today and followup plans were made by pillowcase turner for him to have appointments with [facility] on 11/01/17 at 4:30 p.m. as well as [facility] on 10/29/17 at 11 a.m. DISCHARGE MEDICATIONS: Include: 1. Wellbutrin 150 mg p.o. daily. 2. Norvasc 5 mg p.o. daily. 3. Naltrexone 50 mg p.o. daily. 4. Coreg 25 mg p.o. b.i.d. 5. Potassium chloride 10 mEq p.o. daily. 6. Demadex 20 mg p.o. daily. ISA CEDILLO [id number]/[facility] #: [id number] MTDD
== END 2017-10-24 13:15 | disposition home or self-care (01) | DRG 775 ==
LOC: ED 11:02 → MED 13:58
PROVIDERS: ADMIT Internal Medicine; ATTEND Internal Medicine
DX: F10.229 Alcohol dependence with intoxication, unspecified (principal); I50.42 Chronic combined systolic (congestive) and diastolic (congestive) heart failure; R45.851 Suicidal ideations; F10.239 Alcohol dependence with withdrawal, unspecified; F32.9 Major depressive disorder, single episode, unspecified; J45.909 Unspecified asthma, uncomplicated; I11.0 Hypertensive heart disease with heart failure; M41.9 Scoliosis, unspecified; F41.0 Panic disorder [episodic paroxysmal anxiety]; F43.20 Adjustment disorder, unspecified; Y90.8 Blood alcohol level of 240 mg/100 ml or more; E87.6 Hypokalemia; F10.24 Alcohol dependence with alcohol-induced mood disorder; E83.42 Hypomagnesemia; D72.819 Decreased white blood cell count, unspecified; F60.2 Antisocial personality disorder
CPT/HCPCS: 36415; 80048; 80053; 80307; 80320; 80329; 81003; 81015; 83735; 84443; 85025; 87086; 99284; A9270-GY; G0480; J1644; J2405; J3475